=== PATIENT | female | born 1935 | race Caucasian/White ===

== ENCOUNTER 2016-11-14 11:59 | Emergency (ER) | payer MEDICARE, BC ==
[~2016-11-14] VITALS: Ht 157.5 cm; Wt 60.0 kg
[~2016-11-14 11:59] MED LIST: ANAS1 PO; ANTI12.5 PO; CARV20 PO; COLC.6 PO; DIOV40TA PO; FE FCAP PO; FENT75DI TD; LACTTAB7 PO; METH2.5 PO; NITR.4 SL; NUCY150T PO; OXYC20TA PO; PLAV75TA PO; POTA-267 PO; PRED50 PO; PROT40TA PO; SIMV10 PO; TORS20TA PO; ZOFR4TAB3 PO
[2016-11-14 12:04] VITALS: BP 147/80; PULSE 76; RESP 18; TEMP 98.7; O2SAT 100
--- NOTE | 2016-11-14 12:39 | PD ---
HPI Chief Complaint: Pain: Acute or Chronic Time Seen by Provider: 12:05 Travel History International Travel<30 days: No Contact w/Intl Traveler<30days: No Traveled to known affect area: No History of Present Illness HPI 81yo F with PMH of breast CA and chronic pain who follows pain management Dr. Lomeli presents to c/o left arm pain. States left arm pain and edema for weeks and is on fentanyl patch and oxycodone for it. Denies any fall or trauma. Denies any fever, chest pain, sob, n/v, abdominal pain, focal weakness or numbness. PFSH Past Medical History Hx Anticoagulant Therapy: Yes Arthritis: Yes (PAGE KNEES/LEGS) Asthma: No Autoimmune Disease: No Blood Disorders: No Anxiety: No Depression: No Heart Rhythm Problems: No Cancer: Yes (Right breast) Cardiac Catheterization: Yes Cardiovascular Problems: Yes High Cholesterol: Yes Chemotherapy: Yes Chest Pain: Yes Congestive Heart Failure: No COPD: No Cerebrovascular Accident: Yes Coronary Artery Disease: Yes Diabetes: No Diminished Hearing: No Endocrine: No Fibromyalgia: Yes Gastrointestinal Disorders: Yes GERD: Yes Gout: Yes Genitourinary: Yes (Chronic kidney disease, stage 3) Headaches: Yes Hiatal Hernia: Yes Hypertension: Yes Immune Disorder: No Implanted Vascular Access Dvce: Yes ( ) Musculoskeletal: Yes (Back pain) Neurologic: No Psychiatric: No Reproductive: No Respiratory: No Immunizations Current: Yes Migraines: No Pneumonia: Yes Radiation Therapy: No Renal Failure: Yes (50%) Seizures: No Sickle Cell Disease: No Sleep Apnea: No Thyroid Disease: No Ulcer: No Tetanus Vaccination: < 5 Years Influenza Vaccination: Yes PNEUMOCCOCAL Vaccine (Year): 2 ?: Not Menopausal: Yes Past Surgical History AICD: No Arteriovenous Shunt: No Body Medical Devices: Left subclavian port, LLQ TENS unit Cardiac Surgery: Yes (CABG (QUADR BYPASS)) Cholecystectomy: Yes Coronary Artery Bypass Graft: Yes (FIVE VESSEL BYPASS) Coronary Stent: Yes (X2) Ear Surgery: No Endocrine Surgery: No Eye Surgery: No Genitourinary Surgery: No Gynecologic Surgery: Yes (MASTECTOMY (RIGHT)) Insulin Pump: No Joint Replacement: No Mastectomy: Yes (R BREAST) Oral Surgery: Yes (TEETH REMOVED) Pacemaker: No Thoracic Surgery: No Tonsillectomy: Yes Other Surgery: Yes (CABG, R MASTECTOMY, LAMINECTOMY) Social History Alcohol Use: No Tobacco Use: No Substance Use: No Allergies-Medications (Allergen,Severity, Reaction): Coded Allergies: ALBERTO Inhibitors (Verified Allergy, Severe, 11/14/16) Amlodipine (Verified Allergy, Severe, SEVERE, ACUTE LIVER INJURY, 11/14/16) Aspirin (Verified Allergy, Severe, throat swelling, 11/14/16) Cipro (Verified Allergy, Severe, 11/14/16) MRI PRECAUTION (Verified Allergy, Severe, INTERNAL TENS UNIT, 11/14/16) Stadol (Verified Allergy, Severe, "PUT ME IN WITHDRAW", 11/14/16) Sulfa (Verified Allergy, Severe, RASH, 11/14/16) NOT STATED Ultram (Verified Allergy, Severe, N/V, 11/14/16) *MDRO Multi-Drug Resistant Organism (Verified Allergy, Unknown, 11/14/16) 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 Reported Meds & Prescriptions Reported Meds & Active Scripts Active Reported Ondansetron HCl 4 Mg Tab 4 Mg PO Q6HR PRN Potassium Chloride ER (Potassium Chloride) 10 Meq Tab 5 Meq PO BID Plavix (Clopidogrel Bisulfate) 75 Mg Tab 75 Mg PO DAILY Integra (Multi-Vit/Iron-B Comp-Vit C) 62.5-62.5-40-3 mg Cap 1 Cap PO DAILY Terbinafine 250 Mg Tab 250 Mg PO DAILY Oxycodone (Oxycodone HCl) 20 Mg Tab 20 Mg PO Q4-6H PRN NOT TO EXCEED 5 TABLETS/24HRS Anastrozole 1 Mg Tab 1 Mg PO DAILY Fentanyl Patch 72 HR (Fentanyl) 75 Mcg/Hr Patch 150 Mcg T-DERMAL Q72H Remove old patches when new ones placed. Review of Systems Except as stated in HPI: all other systems reviewed are Neg Physical Exam Narrative GENERAL: 81yo F not in distress. SKIN: Warm and dry. HEAD: Atraumatic. Normocephalic. CARDIOVASCULAR: Regular rate and rhythm. No murmur appreciated. RESPIRATORY: No accessory muscle use. Clear to auscultation. Breath sounds equal bilaterally. GASTROINTESTINAL: Abdomen soft, non-tender, nondistended. MUSCULOSKELETAL: LUE: +TTP mid humerus to distal radius, ulna. Edema left wrist and elbow that is not new. No erythema or ecchymoses. sensation intact. Radial pulse 2+. NEUROLOGICAL: Awake and alert. No obvious cranial nerve deficits. Motor grossly within normal limits. Normal speech. PSYCHIATRIC: Appropriate mood and affect; insight and judgment normal. Data Data Last Documented VS Vital Signs Date Time Temp Pulse Resp B/P Pulse Ox O2 Delivery O2 Flow Rate FiO2 11/14/16 14:36 70 18 161/77 94 Room Air 11/14/16 12:04 98.7 Orders Humerus (Min 2vws) (11/14/16 ) Elbow, Limited (Ap&Lat) (11/14/16 ) Us Arm Venous Doppler (11/14/16 ) Hydromorphone Pf Inj (Dilaudid Pf Inj) (11/14/16 14:30) Iv Access Insert/Monitor (11/14/16 14:52) MDM Medical Decision Making Medical Screen Exam Complete: Yes Emergency Medical Condition: Yes Interpretation(s) Last Impressions Upper Extremity Ultrasound 11/14/16 0000 Signed Impressions: Service Date/Time: Monday, November 14, 2016 15:11 - CONCLUSION: Normal examination. No evidence of DVT Rkiki Uribe MD Humerus X-Ray 11/14/16 0000 Signed Impressions: Service Date/Time: Monday, November 14, 2016 12:55 - CONCLUSION: Unremarkable examination of the left humerus. Rikki Uribe MD Elbow X-Ray 11/14/16 0000 Signed Impressions: Service Date/Time: Monday, November 14, 2016 13:04 - CONCLUSION: Negative examination Rikki Uribe MD Differential Diagnosis Chronic pain vs. rheumatoid arthritis vs. pathologic fracture Narrative Course 81yo F with left arm pain. Denies any trauma but will obtain xray to r/o pathologic fracture since pt is tender and has history of cancer. Negative left humerus and elbow xay. Pt is well known to Dr. Lomeli and I discussed case with her. He wanted ultrasound of left arm prior to discharge and stated that pt can receive dilaudid for acute pain in the ED even though she follows with pain management. US left arm showed no DVT. Pt given dilaudid 0.5m IV and pain is improved. Dr. Lomeli is aware that pt will be following up with him as outpatient. Diagnosis Primary Impression: Left arm pain Patient Instructions: General Instructions Departure Forms: Tests/Procedures Additional Instructions: Please follow up with your Dr. Lomeli as outpatient. Return to the ED if symptoms worsen. Med/Other Pt SpecificInfo: No Change to Meds Disposition: 01 DISCHARGE HOME Condition: Stable Radha Mcelroy DO Nov 14, 2016 12:39
[2016-11-14] MEDS ORDERED: OXYC-396 PO (12:42)
[2016-11-14] MEDS ORDERED: ONDA4TAB6 PO (12:42)
[2016-11-14] MEDS ORDERED: POTA10TA2 PO (12:42)
[2016-11-14] MEDS ORDERED: FENT75DI T-DERMAL (12:42)
[2016-11-14] MEDS ORDERED: FE FCAP PO (12:42)
[2016-11-14] MEDS ORDERED: TERB250T4 PO (12:42)
[2016-11-14] MEDS ORDERED: ANAS1TAB PO (12:42)
[2016-11-14] MEDS ORDERED: PLAV75TA29 PO (12:42)
--- NOTE | 2016-11-14 13:39 | RADRPT ---
EXAM DATE/TIME: 11/14/2016 13:04 [facility] COMPARISON: No previous studies available for comparison. INDICATIONS : Left elbow pain, no injury. MEDICAL HISTORY : Arthritis. SURGICAL HISTORY : None. ENCOUNTER: Initial ACUITY: 2 days PAIN SCORE: 10/10 LOCATION: Left elbow FINDINGS: Two view examination of the left elbow demonstrates no soft tissue swelling, joint effusion, fracture or dislocation. Bony mineralization is normal. CONCLUSION: Negative examination Rikki Uribe MD on November 14, 2016 at 13:37 Board Certified Radiologist. This report was verified electronically.
--- NOTE | 2016-11-14 13:40 | RADRPT ---
EXAM DATE/TIME: 11/14/2016 12:55 [facility] COMPARISON: No previous studies available for comparison. INDICATIONS : Left arm pain, no injury. MEDICAL HISTORY : Arthritis. SURGICAL HISTORY : None. ENCOUNTER: Initial ACUITY: 2 days PAIN SCORE: 10/10 LOCATION: Left entire arm FINDINGS: Two view examination of the left humerus demonstrates no evidence of fracture or dislocation. Bony m ineralization is normal. The soft tissue structures are intact. CONCLUSION: Unremarkable examination of the left humerus. Rikki Uribe MD on November 14, 2016 at 13:38 Board Certified Radiologist. This report was verified electronically.
[2016-11-14] MEDS ORDERED: HYDROmorphone HCL PF 1 MG/ML VIAL IV PUSH ONE (14:30)
[2016-11-14 14:36] VITALS: BP 161/77; PULSE 70; RESP 18; O2SAT 94
--- NOTE | 2016-11-14 15:37 | RADRPT ---
EXAM DATE/TIME: 11/14/2016 15:11 [facility] COMPARISON: No previous studies available for comparison. INDICATIONS : Left arm pain and swelling. MEDICAL HISTORY : Carcinoma, breast. Hypertension. SURGICAL HISTORY : CABG Mastectomy. Left port. Coronary stent. ENCOUNTER: Initial ACUITY: 2 day PAIN SCORE: 10/10 LOCATION: Left arm. FINDINGS: There is spontaneous flow documented in the brachial, basilic, cephalic, axillary, and subclavian vei ns. The vessels are compressible and augmentation response is documented. No filling defects are se en. The flow is phasic with respiration. Direction of flow in the jugular vein is caudal. CONCLUSION: Normal examination. No evidence of DVT Rikki Uribe MD on November 14, 2016 at 15:36 Board Certified Radiologist. This report was verified electronically.
== END 2016-11-14 17:05 | disposition home or self-care (01) ==
LOC: NEPC 11:59
DX: M79.602 Pain in left arm (principal); G89.29 Other chronic pain; I25.10 Atherosclerotic heart disease of native coronary artery without angina pectoris; M79.7 Fibromyalgia; I12.9 Hypertensive chronic kidney disease with stage 1 through stage 4 chronic kidney disease, or unspecified chronic kidney disease; N18.3 Chronic kidney disease, stage 3 (moderate); Z79.01 Long term (current) use of anticoagulants; Z85.3 Personal history of malignant neoplasm of breast
CPT/HCPCS: 73060; 73070; 93971; 96374; 99284; J1170

== ENCOUNTER 2016-12-23 17:54 | Inpatient (IN) | payer MEDICARE, BC ==
[~2016-12-23] VITALS: Ht 157.5 cm; Wt 53.9 kg
[~2016-12-23 17:54] MED LIST changes: -ANAS1 PO; +ANAS1TAB PO; -ANTI12.5 PO; -CARV20 PO; -COLC.6 PO; -DIOV40TA PO; +FENT75DI T-DERMAL; -FENT75DI TD; -LACTTAB7 PO; -METH2.5 PO; -NITR.4 SL; -NUCY150T PO; +ONDA4TAB6 PO; +OXYC-396 PO; -OXYC20TA PO; -PLAV75TA PO; +PLAV75TA29 PO; -POTA-267 PO; +POTA10TA2 PO; -PRED50 PO; -PROT40TA PO; -SIMV10 PO; +TERB250T4 PO; -TORS20TA PO; -ZOFR4TAB3 PO
[2016-12-23 17:57] VITALS: BP 139/65; PULSE 80; RESP 17; TEMP 98.2; O2SAT 97
--- NOTE | 2016-12-23 18:32 | PD ---
HPI Chief Complaint: Chest Pain Time Seen by Provider: 18:32 Travel History International Travel<30 days: No Contact w/Intl Traveler<30days: No Traveled to known affect area: No History of Present Illness HPI 81-year-old female with a history of hypertension, hyperlipidemia, CABG 4, CHF , chronic low back pain, rheumatoid arthritis, breast cancer in remission presents to the emergency department for evaluation of pain all over. The patient states that she has pain all over worse in her bilateral knees. States that a few hours ago she was at home and she was having terrible pain in her knees and then began to complain of pain in her chest. The patient is accompanied by her son and daughter who take care of the patient. The patient' s daughter states that she gave the patient one nitroglycerin tablet and her chest pain resolved. The patient has a history of bilateral knee pain which has worsened over the past year, she receives intra-articular injections from Dr. Lin every 6 months. The patient's daughter is concerned that she may have a urinary tract infection because in the past this has exacerbated her joint pain. Denies any fever, chills, nausea, vomiting, shortness of breath, abdominal pain. Patient's daughter states that the patient has been eating and drinking well without difficulty. No other complaints. Dialysis Registered Nurse is Dr. Gutierres. PCP Dr. Hightower. [facility] Past Medical History Hx Anticoagulant Therapy: Yes Arthritis: Yes (PAGE KNEES/LEGS) Asthma: No Autoimmune Disease: No Blood Disorders: No Anxiety: No Depression: No Heart Rhythm Problems: No Cancer: Yes (Right breast) Cardiac Catheterization: Yes Cardiovascular Problems: Yes High Cholesterol: Yes Chemotherapy: Yes Chest Pain: Yes Congestive Heart Failure: No COPD: No Cerebrovascular Accident: Yes Coronary Artery Disease: Yes Diabetes: No Diminished Hearing: No Endocrine: No Fibromyalgia: Yes Gastrointestinal Disorders: Yes GERD: Yes Gout: Yes Genitourinary: Yes (Chronic kidney disease, stage 3) Headaches: Yes Hiatal Hernia: Yes Hypertension: Yes Immune Disorder: No Implanted Vascular Access Dvce: Yes ( ) Musculoskeletal: Yes (Back pain) Neurologic: No Psychiatric: No Reproductive: No Respiratory: No Immunizations Current: Yes Migraines: No Pneumonia: Yes Radiation Therapy: No Renal Failure: Yes (50%) Seizures: No Sickle Cell Disease: No Sleep Apnea: No Thyroid Disease: No Ulcer: No PNEUMOCCOCAL Vaccine (Year): 2 Menopausal: Yes Past Surgical History AICD: No Arteriovenous Shunt: No Body Medical Devices: Left subclavian port, LLQ TENS unit Cardiac Surgery: Yes (CABG (QUADR BYPASS)) Cholecystectomy: Yes Coronary Artery Bypass Graft: Yes (FIVE VESSEL BYPASS) Coronary Stent: Yes (X2) Ear Surgery: No Endocrine Surgery: No Eye Surgery: No Genitourinary Surgery: No Gynecologic Surgery: Yes (MASTECTOMY (RIGHT)) Insulin Pump: No Joint Replacement: No Mastectomy: Yes (R BREAST) Oral Surgery: Yes (TEETH REMOVED) Pacemaker: No Thoracic Surgery: No Tonsillectomy: Yes Other Surgery: Yes (CABG, R MASTECTOMY, LAMINECTOMY) Social History Alcohol Use: No Tobacco Use: No Substance Use: No Allergies-Medications (Allergen,Severity, Reaction): Coded Allergies: ALBERTO Inhibitors (Verified Allergy, Severe, 12/23/16) Amlodipine (Verified Allergy, Severe, SEVERE, ACUTE LIVER INJURY, 12/23/16) Aspirin (Verified Allergy, Severe, throat swelling, 12/23/16) Cipro (Verified Allergy, Severe, 12/23/16) MRI PRECAUTION (Verified Allergy, Severe, INTERNAL TENS UNIT, 12/23/16) Stadol (Verified Allergy, Severe, "PUT ME IN WITHDRAW", 12/23/16) Sulfa (Verified Allergy, Severe, RASH, 12/23/16) NOT STATED Ultram (Verified Allergy, Severe, N/V, 12/23/16) *MDRO Multi-Drug Resistant Organism (Verified Allergy, Unknown, 12/23/16) 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 Reported Meds & Prescriptions Reported Meds & Active Scripts Active Reported Valsartan 40 Mg Tab 40 Mg PO DAILY Ondansetron HCl 4 Mg Tab 4 Mg PO Q6HR PRN Potassium Chloride ER (Potassium Chloride) 10 Meq Tab 5 Meq PO BID Plavix (Clopidogrel Bisulfate) 75 Mg Tab 75 Mg PO DAILY Integra (Multi-Vit/Iron-B Comp-Vit C) 62.5-62.5-40-3 mg Cap 1 Cap PO DAILY Oxycodone (Oxycodone HCl) 20 Mg Tab 20 Mg PO Q4-6H PRN NOT TO EXCEED 5 TABLETS/24HRS Anastrozole 1 Mg Tab 1 Mg PO DAILY Fentanyl Patch 72 HR (Fentanyl) 75 Mcg/Hr Patch 150 Mcg T-DERMAL Q72H Remove old patches when new ones placed. Review of Systems Except as stated in HPI: all other systems reviewed are Neg Physical Exam Narrative GENERAL: Thin elderly female in no acute distress. SKIN: Warm and dry. HEAD: Normocephalic and atraumatic. EYES: Left eye with conjunctival and scleral injection with yellow drainage and crusting. Right eye within normal limits. No hyphema noted. PERRLA. EOMI. ENT: No nasal drainage noted. Oropharynx is clear. NECK: Supple and the trachea is midline. CARDIOVASCULAR: Regular rate and rhythm. RESPIRATORY: Breath sounds are equal bilaterally with no accessory muscle use, wheezing, rhonchi, or crackles. GASTROINTESTINAL: Abdomen is soft, non-tender, and nondistended. MUSCULOSKELETAL: No obvious deformities, swelling, cyanosis, or ecchymosis is present throughout the upper and lower extremities. Patient has full range of motion without any signs of neurovascular compromise. NEUROLOGICAL: Awake, alert, and oriented. Normal speech and gait. Cranial nerves are grossly intact. Data Data Last Documented VS Vital Signs Date Time Temp Pulse Resp B/P Pulse Ox O2 Delivery O2 Flow Rate FiO2 12/23/16 19:31 18 12/23/16 17:57 98.2 80 139/65 97 Orders Complete Blood Count With Diff (12/23/16 18:29) Comprehensive Metabolic Panel (12/23/16 18:29) Prothrombin Time / Inr (Pt) (12/23/16 18:29) Act Partial Throm Time (Ptt) (12/23/16 18:29) Lactic Acid Sepsis Protocol (12/23/16 18:29) Magnesium (Mg) (12/23/16 18:29) Ckmb (Isoenzyme) Profile (12/23/16 18:29) Troponin I (12/23/16 18:29) Urinalysis - C+S If Indicated (12/23/16 18:29) Chest, Single Ap (12/23/16 18:29) Ecg Monitoring (12/23/16 18:29) Iv Access Insert/Monitor (12/23/16 18:29) Oximetry (12/23/16 18:29) Creatine Kinase (Cpk) (12/23/16 18:29) Morphine Inj (Morphine Inj) (12/23/16 19:00) Sodium Chlorid 0.9% 500 Ml Inj (Ns 500 M (12/23/16 19:45) Admit Order (Ed Use Only) (12/23/16 20:24) Labs Laboratory Tests Test 12/23/16 18:40 White Blood Count 7.5 TH/MM3 Red Blood Count 2.99 MIL/MM3 Hemoglobin 8.6 GM/DL Hematocrit 26.8 % Mean Corpuscular Volume 89.5 FL Mean Corpuscular Hemoglobin 28.9 PG Mean Corpuscular Hemoglobin 32.2 % Concent Red Cell Distribution Width 18.6 % Platelet Count 262 TH/MM3 Mean Platelet Volume 7.6 FL Neutrophils (%) (Auto) 84.6 % Lymphocytes (%) (Auto) 8.2 % Monocytes (%) (Auto) 6.7 % Eosinophils (%) (Auto) 0.2 % Basophils (%) (Auto) 0.3 % Neutrophils # (Auto) 6.3 TH/MM3 Lymphocytes # (Auto) 0.6 TH/MM3 Monocytes # (Auto) 0.5 TH/MM3 Eosinophils # (Auto) 0.0 TH/MM3 Basophils # (Auto) 0.0 TH/MM3 CBC Comment DIFF FINAL Differential Comment Prothrombin Time 11.8 SEC Prothromb Time International 1.1 RATIO Ratio Activated Partial 38.4 SEC Thromboplast Time Sodium Level 140 MEQ/L Potassium Level 4.4 MEQ/L Chloride Level 104 MEQ/L Carbon Dioxide Level 25.8 MEQ/L Anion Gap 10 MEQ/L Blood Urea Nitrogen 26 MG/DL Creatinine 1.96 MG/DL Estimat Glomerular Filtration 24 ML/MIN Rate Random Glucose 88 MG/DL Lactic Acid Level 1.0 mmol/L Calcium Level 8.4 MG/DL Magnesium Level 2.4 MG/DL Total Bilirubin 0.4 MG/DL Aspartate Amino Transf 27 U/L (AST/SGOT) Alanine Aminotransferase 9 U/L (ALT/SGPT) Alkaline Phosphatase 214 U/L Total Creatine Kinase 97 U/L Troponin I 0.08 NG/ML Total Protein 6.7 GM/DL Albumin 3.2 GM/DL [facility] Medical Decision Making Medical Screen Exam Complete: Yes Emergency Medical Condition: Yes Differential Diagnosis Rheumatoid arthritis versus chronic pain versus UTI versus ACS Narrative Course 81-year-old female presents to the emergency department for evaluation of chronic joint pain and an episode of chest pain. Patient is afebrile, vital signs are stable. Physical examination reveals a thin elderly cachectic female who appears clinically dry. Labs were drawn and sent. EKG shows sinus rhythm with no acute ST elevations or depressions. Patient is on multiple pain medications including a fentanyl patch and oxycodone every 4 hours. She's requesting something for her pain. Patient is given morphine 4 mg IV. She is allergic to aspirin and therefore is not given any here, she is on Plavix. CBC shows anemia with a hemoglobin of 8.6, hematocrit 26.8. This does appear to be consistent with her previous lab values over the past 2 years. CMP shows elevated creatinine of 1.96, BUN 26, GFR 24. This is elevated from the patient's baseline. Troponin is elevated at 0.08. Lactic acid is 1.0. Coags are unremarkable. Chest x-ray is negative for any acute abnormalities. Labs show that the patient is dehydrated, she is given a fluid bolus of 500 cc IV normal saline. She has an elevated troponin as well. Patient will be admitted to medicine service likely with cardiology consultation. Physician Communication Physician Communication I spoke with Arabella KLINE for [facility] who agrees to admit the patient to Dr. Velasquez's service. Diagnosis Primary Impression: Chest pain Qualified Code: R07.9 - Chest pain, unspecified type Additional Impressions: Elevated troponin Chronic joint pain AYESHA (acute kidney injury) Conjunctivitis, left eye Qualified Code: H10.32 - Acute conjunctivitis of left eye, unspecified acute conjunctivitis type Admitting Information Admitting Physician Requests: Admit Alisia Anthony Dec 23, 2016 18:32
[2016-12-23] MEDS ORDERED: VALS1TAB63 PO (18:42)
[2016-12-23] MEDS ORDERED: MORPHINE SULFATE 4 MG/ML INJ IV PUSH ONE (19:00)
[2016-12-23 19:02] LABS: AUTOMATED NEUTROPHIL # 6.3 TH/MM3 (1.8-7.7); BASOPHIL % 0.3 % (0.0-2.0); EOSINOPHIL % 0.2 % (0.0-4.0); HEMATOCRIT 26.8 % (35.0-46.0); HEMO FLAGS DIFF FINAL; LYMPH % 8.2 % (9.0-44.0); LYMPHOCYTE # 0.6 TH/MM3 (1.0-4.8); MEAN CELL VOLUME 89.5 FL (80.0-100.0); MEAN CORPUSCULAR HEMOGLOBIN 28.9 PG (27.0-34.0); MEAN CORPUSCULAR HGB CONC 32.2 % (32.0-36.0); MONO % 6.7 % (0.0-8.0); NEUT % 84.6 % (16.0-70.0); PLATELET COUNT 262 TH/MM3 (150-450); RED BLOOD COUNT 2.99 MIL/MM3 (4.00-5.30); RED CELL DISTRIBUTION WIDTH 18.6 % (11.6-17.2); WHITE BLOOD COUNT 7.5 TH/MM3 (4.0-11.0)
--- NOTE | 2016-12-23 19:07 | RADRPT ---
EXAM DATE/TIME: 12/23/2016 18:51 [facility] COMPARISON: CHEST SINGLE AP, April 04, 2015, 3:37. INDICATIONS : Chest Pain, Short of Breath. MEDICAL HISTORY : Chronic obstructive pulmonary disease. Renal insufficiency. SURGICAL HISTORY : Nephrectomy, right. Cholecystectomy. Heart Surgery. Lumbar Spine Surgery. Port Placement. ENCOUNTER: Initial ACUITY: 1 day PAIN SCORE: 3/10 LOCATION: Bilateral chest FINDINGS: Vital hernia, cardiomegaly and clear lungs. Median sternotomy wires and CABG markers are noted. Spina l stimulator lead overlies the lower thoracic spine. Left sided port catheter tip overlies the SVC. A ortic calcification is noted. CONCLUSION: No acute disease. Lanre Rao MD on December 23, 2016 at 19:05 Board Certified Radiologist. This report was verified electronically.
[2016-12-23 19:15] LABS: APTT (PATIENT) 38.4 SEC (24.3-30.1); INTERNATIONAL NORMALIZED RATIO 1.1 RATIO; PROTHROMBIN TIME - PATIENT 11.8 SEC (9.8-11.6)
[2016-12-23 19:28] LABS: ANION GAP 10 MEQ/L (5-15); AST (GOT) 27 U/L (15-37); BICARBONATE 25.8 MEQ/L (21.0-32.0); BLOOD UREA NITROGEN 26 MG/DL (7-18); CHLORIDE 104 MEQ/L (98-107); GLOMERULAR FILTRATION RATE 24 ML/MIN (>89); MAGNESIUM 2.4 MG/DL (1.5-2.5); POTASSIUM 4.4 MEQ/L (3.5-5.1); SODIUM (NA) 140 MEQ/L (136-145)
[2016-12-23 19:32] LABS: ALKALINE PHOSPHATASE 214 U/L (45-117); ALT (GPT) 9 U/L (10-53); TOTAL BILIRUBIN ADULT 0.4 MG/DL (0.2-1.0)
[2016-12-23 19:34] LABS: CREATINE KINASE 97 U/L (26-192)
[2016-12-23] MEDS ORDERED: SODIUM CHLORID 0.9% 500 ML INJ 500 ML IV ONE (19:45)
[2016-12-23] MEDS ORDERED: ACETAMINOPHEN 325 MG TAB PO PRN (20:30)
[2016-12-23] MEDS ORDERED: NALOXONE HCL 0.4 MG/ML AMP IV PRN (20:30)
[2016-12-23] MEDS ORDERED: SODIUM CHLORIDE 0.9% FLUSH 5 ML FLUSH FLUSH PRN (20:30)
[2016-12-23 20:39] VITALS: BP 144/67; PULSE 71; RESP 18; O2SAT 98
[2016-12-23] MEDS ORDERED: HYDROmorphone HCL PF 1 MG/ML VIAL IV PUSH ONE (20:45)
[2016-12-23 20:56] LABS: BLOOD, URINE NEG (NEG); GLUCOSE,URINE NEG (NEG); KETONE, URINE TRACE mg/dL (NEG); NITRITE,URINE NEG (NEG); PH, URINE 5.5 (5.0-8.5); URINE COLOR YELLOW (YELLW/STRAW)
[2016-12-23 21:01] LABS: COMMENT (UR) CATH-CULTURE IND; CULTURE IF INDICATED CATH CULTURE IND
[2016-12-23 21:02] LABS: BACTERIA, URINE FEW /hpf
[2016-12-23] MEDS: ERYTHROMYCIN 0.5% OPTH OINT 3.5 GM TUBO LEFT EYE SCH (22:10)
[2016-12-23] MEDS: SODIUM CHLORIDE 0.9% FLUSH 5 ML FLUSH FLUSH SCH (22:11)
[2016-12-24] MEDS: NITROGLYCERIN 2% OINT 1 GM PACKET TOPICAL SCH ×4 (00:11→17:20)
[2016-12-24] MEDS: ERYTHROMYCIN 0.5% OPTH OINT 3.5 GM TUBO LEFT EYE SCH ×4 (00:12→17:19)
[2016-12-24] MEDS ORDERED: HYDROmorphone HCL PF 1 MG/ML VIAL IV PRN (01:30)
[2016-12-24] MEDS: HYDROmorphone HCL PF 1 MG/ML VIAL IV PRN ×4 (02:15→13:43)
[2016-12-24 03:35] VITALS: PULSE 53
[2016-12-24 04:00] VITALS: BP 133/63; PULSE 61; RESP 22; TEMP 98.3; O2SAT 100
[2016-12-24] MEDS: ONDANSETRON HCL 4 MG/2 ML VIAL IVP PRN ×2 (05:58→17:20)
[2016-12-24 08:00] VITALS: BP 180/79; PULSE 70; RESP 18; TEMP 98.1; O2SAT 97
[2016-12-24] MEDS: ANASTROZOLE 1 MG TAB PO SCH ×2 (08:41→09:03)
[2016-12-24] MEDS: CLOPIDOGREL 75 MG TAB PO SCH ×2 (08:41→09:03)
[2016-12-24] MEDS: SODIUM CHLORIDE 0.9% FLUSH 5 ML FLUSH FLUSH SCH ×2 (08:42→20:45)
[2016-12-24 09:01] LABS: AUTOMATED NEUTROPHIL # 4.6 TH/MM3 (1.8-7.7); BASOPHIL % 0.5 % (0.0-2.0); EOSINOPHIL % 0.6 % (0.0-4.0); HEMATOCRIT 26.6 % (35.0-46.0); HEMO FLAGS DIFF FINAL; LYMPH % 13.6 % (9.0-44.0); LYMPHOCYTE # 0.8 TH/MM3 (1.0-4.8); MEAN CELL VOLUME 90.3 FL (80.0-100.0); MEAN CORPUSCULAR HEMOGLOBIN 29.4 PG (27.0-34.0); MEAN CORPUSCULAR HGB CONC 32.5 % (32.0-36.0); MONO % 7.4 % (0.0-8.0); NEUT % 77.9 % (16.0-70.0); PLATELET COUNT 240 TH/MM3 (150-450); RED BLOOD COUNT 2.95 MIL/MM3 (4.00-5.30); RED CELL DISTRIBUTION WIDTH 19.4 % (11.6-17.2); WHITE BLOOD COUNT 5.9 TH/MM3 (4.0-11.0)
[2016-12-24 09:30] LABS: BICARBONATE 22.2 MEQ/L (21.0-32.0); HDL CHOLESTEROL 46.1 MG/DL (40.0-60.0); POTASSIUM 4.4 MEQ/L (3.5-5.1)
[2016-12-24 12:00] VITALS: BP 160/72; PULSE 64; RESP 18; TEMP 98.2; O2SAT 93
[2016-12-24] MEDS ORDERED: LIDOCAINE HCL 5% OINT 37 GM TUBE TOPICAL PRN (12:30)
--- NOTE | 2016-12-24 12:30 | MB ---
cc: SHAILESH WEINSTEIN M.D., MARK B. M.D. ANO, FERMIN A. M.D. DATE OF CONSULTATION: 12/24/2016 REASON FOR CONSULTATION: Atypical chest discomfort and nonspecific troponin elevation. HISTORY OF PRESENT ILLNESS: Ms. Aguilar is a pleasant 81 year-old lady with history of hypertension, rheumatoid arthritis, fibromyalgia and generalized pains. She was complaining of her usual generalized pain and neck pains at home, then had chest discomfort complaints as well, and her family decided to bring her over for further management. Currently she is chest pain free. Denies palpitations, dizziness or syncope, denies orthopnea, PND or leg swelling. Denies claudication. ALLERGIES Documented in the chart. MDRO ALBERTO INHIBITOR AMLODIPINE ASPIRIN CIPRO STADOL SULFA ULTRAM Not sure if all these are allergies versus side effects. PAST MEDICAL HISTORY/PAST SURGICAL HISTORY: As mentioned above. 1. History of coronary artery disease, status post coronary artery bypass graft surgery in the past. 2. GE reflux disease. 3. Chronic kidney disease. 4. Hyperlipidemia. 5. Chronic back pain. 6. Anemia. 7. Breast cancer. 8. Gout. 9. Degenerative joint disease/arthritis. 10. Status post mastectomy of the right breast. 11. CABG in the past. REVIEW OF SYSTEMS 12-point system review is unremarkable apart from what is mentioned above including the generalized pain. FAMILY HISTORY: The family history is unremarkable. PHYSICAL EXAMINATION: The patient is an 81-year-old lady lying in bed. No apparent distress, alert and oriented x3, answers questions appropriately. Vitals: Shows a blood pressure earlier today 180/78 mmHg, prior to that it has been running between 133 systolic to 161. Diastolic occurring between 63 to 80 mmHg. Pulse of 70 beats per minute, irregular. Respiratory rate 40 per minute, afebrile. HEENT: Head is normocephalic. Pupils equal and reactive. Throat is within normal limits. Neck: Supple. No carotid bruit. No thyromegaly. No jugular venous distension noted. Lungs: Somewhat diminished air entry but clear to auscultation and percussion. Cardiovascular: S1, S2 are normal with an S4 gallop and 2/6 denney systolic murmur at the apex with some radiation to the axilla, likely secondary to mitral regurgitation. Abdomen: Exam is lax, nontender. Normoactive bowel sounds. No organomegaly or masses felt. Extremities: No clubbing, cyanosis or edema. Pulses 2+ bilaterally all the way down to the femorals. Dorsalis pedis is barely felt. Neurologic: Grossly intact with no focal deficits. Rectal: Exam deferred. EKG shows sinus rhythm at a rate of 73 beats per minute with no acute ischemic changes. LABORATORY DATA: Showed BUN of 26, creatinine 1.96, it is down to 1.83 today. Sodium 140, potassium 4.4 and a magnesium of 2.4. She had three Troponin-I, one was 0.08, followed by 0.07, followed by 0.05. Her lipids showed an LDL of 93, HDL of 46 and triglycerides of 162. White count of 5.9, hemoglobin of 8.7 with a platelet count of 240,000. X-RAYS: Chest x-ray showed no acute findings "reported as." ASSESSMENT AND RECOMMENDATION: 1. History of coronary artery disease status post CABG and PCI in the past, according to some of the notes. The exact details are not available and now with atypical chest discomfort, appears to be musculoskeletal, and nonspecific troponin elevation which is likely secondary to renal insufficiency (contributing). At this point she is being treated with no EKG changes and will continue on her home meds. Dr. Singletary will resume her cardiac care tomorrow morning and will decide whether further testing is needed (it is worth noting that we do not have any of her recent cardiac workup at this point). 2. Hypertension. Resume home meds and follow up, and assess the need for further adjustments. 3. Hyperlipidemia. Relatively controlled. 4. Need to resume her valsartan an continue on Plavix. Further management per the medical team. Thank you for the consultation. Dr. Singletary will be resuming her cardiac care from tomorrow and also to decide the need for any further investigations. ADDENDUM: After reviewing her labs with the elevated creatinine, it was found that this is a significant elevation compared to her renal function from August 2016, four months ago, and Valsartan would be held, she will be started on Amlodipine for blood pressure control and Dr. Singletary will decide further management tomorrow. MD MONTY Monterroso/FADI /11:38 AM /8:40 AM
--- NOTE | 2016-12-24 13:03 | MH ---
DATE OF ADMISSION: 12/23/2016 ADMITTING PHYSICIAN: JENNIFER FAUSTIN MD CHIEF COMPLAINT: Chest pain. HISTORY OF PRESENT ILLNESS: The patient is an 81-year-old female with a history of hypertension, hyperlipidemia, CABG x4, congestive heart failure, chronic low back pain, chronic arthralgias, rheumatoid arthritis, breast cancer in remission to presented to the emergency room for evaluation of pain all over. Per the patient, she has pain all over, worse in her bilateral knees. She also states that a few hours ago prior to presentation to the emergency room she was at home and was having terrible pain in her knees and then began to complain of pain in her chest. The patient was accompanied by her son and daughter who take care of the patient. The patient's daughter stated that she gave the patient one nitroglycerin tablet and her chest pain resolved. The patient receives intraarticular injections from Dr. Griffin every six months. The patient's daughter is also concerned that she might be having a urinary tract infection because in the past that used to exacerbate her joint pain. She denies any fever, chills, nausea or vomiting, shortness of breath or abdominal pain. The patient's daughter stated that the patient has been eating and drinking well without any difficulty. The patient's functional tester typewriters is Dr. Gordillo. PAST MEDICAL HISTORY: 1. Rheumatoid arthritis. 2. Hypertension. 3. Hyperlipidemia. 4. Coronary artery disease. 5. Chronic low back pain. 6. Bilateral knee pain. 7. History of breast cancer in remission. 8. Chronic kidney disease stage III. PAST SURGICAL HISTORY: 1. CABG x4. 2. History of cardiac stents x2. 3. History of right mastectomy. 4. History of teeth removed. 5. History of spinal surgery, laminectomy. SOCIAL HISTORY: Denies any alcohol, tobacco or substance use. Lives with her daughter who takes care of her. FAMILY HISTORY: Family history significant for coronary artery disease and hypertension and hyperlipidemia. ALLERGIES: 1. ALBERTO INHIBITORS. 2. AMLODIPINE. 3. ASPIRIN. 4. CIPRO. 5. MRI PRECAUTIONS. 6. STADOL. 7. SULFA. 8. ULTRAM. CURRENT MEDICATIONS: 1. Valsartan. 2. Ondansetron. 3. Potassium chloride. 4. Plavix. 5. Integra. 6. Oxycodone. 7. Anastrazole. 8. Fentanyl patch. REVIEW OF SYSTEMS: GENERAL: Complains of generalized body aches and pain. HEAD, EYES, EARS, NOSE, THROAT: Denies any headache, ear, nose or throat pain. Denies any blurring of vision. CARDIOVASCULAR: Did complain of chest pain which is atypical. RESPIRATORY: Denies any shortness of breath or wheezing. GASTROINTESTINAL: Denies any abdominal pain, nausea or vomiting or diarrhea. MUSCULOSKELETAL: Generalized arthralgias and bilateral knee pain. NEUROLOGIC: No focal deficit. PSYCHIATRIC: No depression or anxiety. PHYSICAL EXAMINATION: VITAL SIGNS: At the time of examination, 133/63, pulse oximetry is 100% on room air, pulse is 61, respiratory rate is 22. GENERAL: A frail-looking elderly female lying in bed in no acute distress complaining of knee pain. Wants something to rub on it. SKIN: Warm and dry HEAD: Normocephalic and atraumatic. EYES: Left eye with conjunctival injection with yellow drainage and crusting. Right eye within normal limits. No hyphema noted. Pupils equal, round and reactive to light and accommodation. Extraocular muscles intact. ENT: No nasal drainage noted. Oropharynx is clear. NECK: The neck is supple. Trachea is midline. CARDIOVASCULAR: Regular rate and rhythm. No murmur. No gallop. RESPIRATORY: Breath sounds are equal bilaterally. No accessory muscle use, wheezing, rhonchi or crackles. GASTROINTESTINAL: The abdomen is soft, nontender and nondistended. Bowel sounds heard in all four quadrants. No organomegaly. MUSCULOSKELETAL: No obvious deformities, swelling, cyanosis or congestion. The patient has full range of motion without any signs of neurovascular compromise. NEUROLOGIC: Awake, alert, and oriented. Normal speech and gait. Cranial nerves are grossly intact. PSYCHIATRIC: Appropriate mood and affect. LABORATORY STUDIES: WBCs 7.5, hemoglobin 8.6, hematocrit 26.8, platelet count 262,000. Potassium 4.4, BUN 26, creatinine 1.96, lactic acid is 1.0, magnesium 2.4. The first set of troponin is 0.08, the second set is 0.07 and the third set is 0.05. Triglycerides 115, cholesterol 162, LDL 93, HDL 46.1. Urinalysis shows large leukocyte esterase, a few bacteria, 10 WBCs and culture is indicated. IMAGING STUDIES: Chest x-ray shows no acute disease. DIAGNOSTIC IMPRESSION: 1. Chest pain. 2. Elevated troponin. 3. Rheumatoid arthritis. 4. Chronic joint pain. 5. Acute kidney injury. 6. Left eye conjunctivitis. 7. Hypertension. 8. Hyperlipidemia. 9. Coronary artery disease. PLAN: 1. Will admit the patient to the medical unit. 2. Start the patient on IV fluids. 3. Will request cardiology consult. 4. Will check three sets of troponin. 5. Will also check the lipid profile. 6. Will do continuous telemetry monitoring. 7. Will do pain management with Dilaudid. 8. Will continue home medications as appropriate. 9. THE PATIENT IS ALLERGIC TO ASPIRIN so therefore she is on Plavix and will continue Plavix. 10. Will prescribe lidocaine gel for her knee pain. 11. Will do nitroglycerin PRN. 12. Will prescribe erythromycin ophthalmic ointment for her left eye conjunctivitis. 13. Will monitor the patient closely during the hospital stay. 14. DVT prophylaxis with SCDs. 15. GI prophylaxis with proton pump inhibitor. Further management depends upon the hospital course. The patient has presented with chest pain and need to rule out acute coronary syndrome. Will need cardiology input. Will need an inpatient stay of minimum three midnights. Jennifer Faustin MD [facility]
--- NOTE | 2016-12-24 14:32 | EKG ---
Date Performed: 12/23/2016 Time Performed: 18:17:56 PTAGE: 81 years EKG: Sinus rhythm NORMAL ECG Compared to prior tracing no significant change PREVIOUS TRACING 05/06/2016 @13.00.53 DOCTOR: Virgil Silva Interpretating Date/Time 12/24/2016 14:31:03
[2016-12-24 16:00] VITALS: BP 159/71; PULSE 60; RESP 20; TEMP 98.2; O2SAT 98
[2016-12-24] MEDS ORDERED: amLODIPine BESYLATE 5 MG TAB PO SCH (16:00)
[2016-12-24] MEDS ORDERED: TAPENTADOL 150 MG PO SCH (17:00)
[2016-12-24] MEDS ORDERED: VALSARTAN 40 MG TAB PO ONE (19:00)
[2016-12-24 20:00] VITALS: PULSE 72; RESP 18; TEMP 98.7; O2SAT 98
[2016-12-24] MEDS: CARVEDILOL 6.25 MG TAB PO SCH (20:44)
[2016-12-24] MEDS: FAMOTIDINE 20 MG TAB PO SCH (20:44)
[2016-12-24] MEDS: TAPENTADOL 150 MG PO SCH (20:45)
[2016-12-25] MEDS: NITROGLYCERIN 2% OINT 1 GM PACKET TOPICAL SCH ×4 (00:04→17:05)
[2016-12-25] MEDS: ERYTHROMYCIN 0.5% OPTH OINT 3.5 GM TUBO LEFT EYE SCH ×4 (00:04→17:05)
[2016-12-25 00:43] VITALS: BP 156/74; PULSE 70; RESP 16; TEMP 98.6; O2SAT 96
[2016-12-25] MEDS: ACETAMINOPHEN 325 MG TAB PO PRN ×2 (02:15→07:53)
[2016-12-25 03:39] VITALS: PULSE 76
[2016-12-25 05:12] VITALS: BP 152/71; PULSE 66; RESP 18; TEMP 97.9; O2SAT 98
[2016-12-25] MEDS: TAPENTADOL 150 MG PO SCH ×2 (05:12→14:42)
[2016-12-25 06:14] LABS: BICARBONATE 19.9 MEQ/L (21.0-32.0); POTASSIUM 4.5 MEQ/L (3.5-5.1)
[2016-12-25] MEDS: FAMOTIDINE 20 MG TAB PO SCH (07:51)
[2016-12-25] MEDS: CARVEDILOL 6.25 MG TAB PO SCH (07:51)
[2016-12-25] MEDS: SODIUM CHLORIDE 0.9% FLUSH 5 ML FLUSH FLUSH SCH (07:52)
[2016-12-25 08:00] VITALS: BP 151/102; PULSE 72; PULSE 75; RESP 18; TEMP 97.5; O2SAT 100
--- NOTE | 2016-12-25 08:45 | PD.CARD.PN ---
Subjective Subjective Remarks No CP or SOB. C/O LE pains at this time. Objective Medications Current Medications Medications (Trade) Dose Ordered Sig/Loco Route PRN Reason Start Time Stop Time Status Last Admin Dose Admin Erythromycin (Ilotycin 0.5% Opth Oint) 1 applic Q6HR LEFT EYE 12/23/16 20:30 12/25/16 05:11 IV Flush (NS Flush) 2 ml UNSCH PRN FLUSH FLUSH AFTER USING IV ACCESS 12/23/16 20:30 IV Flush (NS Flush) 2 ml BID FLUSH 12/23/16 21:00 12/25/16 07:52 Ondansetron HCl (Zofran Inj) 4 mg Q6H PRN IVP NAUSEA OR VOMITING 12/23/16 20:30 12/24/16 17:20 Naloxone HCl (Narcan Inj) 0.4 mg UNSCH PRN IV SEE LABEL COMMENTS 12/23/16 20:30 Nitroglycerin (Nitroglycerin 2% Oint) 0.5 inch Q6HR TOPICAL 12/24/16 00:00 12/25/16 05:11 Anastrozole (Arimidex) 1 mg DAILY PO 12/24/16 09:00 12/24/16 09:03 Clopidogrel Bisulfate (Plavix) 75 mg DAILY PO 12/24/16 09:00 12/24/16 09:03 Lidocaine HCl (Xylocaine 5% Oint) 1 applic Q8H PRN TOPICAL LEG PAIN 12/24/16 12:30 12/25/16 05:11 Famotidine (Pepcid) 20 mg BID PO 12/24/16 21:00 12/25/16 07:51 Patient Own Medication PT OWN MED: NUCYNTA... Q8HR PO 12/24/16 22:00 12/25/16 05:12 Carvedilol (Coreg) 6.25 mg Q12HR PO 12/24/16 21:00 12/25/16 07:51 Acetaminophen (Tylenol) 650 mg Q4H PRN PO TEMP > 100.4 AND PAIN 12/25/16 00:45 12/25/16 07:53 Vital Signs / I&O Vital Signs Date Time Temp Pulse Resp B/P Pulse Ox O2 Delivery O2 Flow Rate FiO2 12/25/16 05:12 97.9 66 18 152/71 98 12/25/16 03:39 76 12/25/16 00:43 98.6 70 16 156/74 96 12/24/16 20:45 Room Air 12/24/16 20:00 98.7 72 18 98 12/24/16 16:00 98.2 60 20 159/71 98 12/24/16 12:00 98.2 64 18 160/72 93 12/24/16 12:00 16 I/O 12/24/16 12/24/16 12/24/16 12/25/16 12/25/16 12/25/16 07:00 15:00 23:00 07:00 15:00 23:00 Intake Total 150 ml Output Total 475 ml 350 ml Balance -325 ml -350 ml Intake Oral 150 ml Output Urine Total 475 ml 350 ml # Voids 1 4 # Bowel Movements 0 0 Physical Exam VSS, afebrile No JVD Lungs: CTA Heart: S1/S2 2/6 sytolic murmur at apex. Ext: No C/C/E Laboratory Laboratory Tests Test 12/24/16 12/25/16 08:33 05:20 White Blood Count 5.9 TH/MM3 Red Blood Count 2.95 MIL/MM3 Hemoglobin 8.7 GM/DL Hematocrit 26.6 % Mean Corpuscular Volume 90.3 FL Mean Corpuscular Hemoglobin 29.4 PG Mean Corpuscular Hemoglobin 32.5 % Concent Red Cell Distribution Width 19.4 % Platelet Count 240 TH/MM3 Mean Platelet Volume 7.6 FL Neutrophils (%) (Auto) 77.9 % Lymphocytes (%) (Auto) 13.6 % Monocytes (%) (Auto) 7.4 % Eosinophils (%) (Auto) 0.6 % Basophils (%) (Auto) 0.5 % Neutrophils # (Auto) 4.6 TH/MM3 Lymphocytes # (Auto) 0.8 TH/MM3 Monocytes # (Auto) 0.4 TH/MM3 Eosinophils # (Auto) 0.0 TH/MM3 Basophils # (Auto) 0.0 TH/MM3 CBC Comment DIFF FINAL Differential Comment Sodium Level 140 MEQ/L 141 MEQ/L Potassium Level 4.4 MEQ/L 4.5 MEQ/L Chloride Level 106 MEQ/L 104 MEQ/L Carbon Dioxide Level 22.2 MEQ/L 19.9 MEQ/L Anion Gap 12 MEQ/L 17 MEQ/L Blood Urea Nitrogen 25 MG/DL 26 MG/DL Creatinine 1.83 MG/DL 1.65 MG/DL Estimat Glomerular Filtration 26 ML/MIN 30 ML/MIN Rate Random Glucose 60 MG/DL 54 MG/DL Calcium Level 8.2 MG/DL 8.2 MG/DL Total Creatine Kinase 119 U/L Troponin I 0.05 NG/ML Triglycerides Level 115 MG/DL Cholesterol Level 162 MG/DL LDL Cholesterol 93 MG/DL HDL Cholesterol 46.1 MG/DL Cholesterol/HDL Ratio 3.51 RATIO Imaging Last 48 hours Impressions Chest X-Ray 12/23/16 5369 Signed Impressions: Service Date/Time: Friday, December 23, 2016 18:51 - CONCLUSION: No acute disease. Lanre Rao MD Assessment and Plan Problem List: (1) ASHD (arteriosclerotic heart disease) (2) Chest pain, atypical Assessment and Plan: Suspect musculoskeletal etiology. (3) Back pain (4) S/P CABG (coronary artery bypass graft) (5) Lower extremity pain (6) CKD (chronic kidney disease) (7) Elevated troponin Assessment and Plan: Probably insignificant. Assessment and Plan No further inpatient cardiac workup needed. Resume all home cardiovascular meds. Continue current management. Will follow PRN and see back as outpatient. Raymundo Singletary MD Dec 25, 2016 08:45
[2016-12-25 12:00] VITALS: BP 150/67; PULSE 69; RESP 16; TEMP 98.1; O2SAT 99
[2016-12-25 16:00] VITALS: BP 126/60; PULSE 64; RESP 16; TEMP 97.7; O2SAT 92
[2016-12-25] MEDS ORDERED: REMOVE OLD PATCH TD SCH (16:00)
[2016-12-25] MEDS ORDERED: fentaNYL 75 MCG/HR PATCH TD SCH (16:00)
[2016-12-25] MEDS ORDERED: CARV6.25 PO (17:11)
--- NOTE | 2016-12-25 17:12 | HHI.DCPOC ---
Discharge Care Plan Diagnosis: (1) Chest pain (2) Chronic joint pain Your Health Problems Are: Chest Pain Goals to Promote Your Health * To prevent worsening of your condition and complications * To maintain your health at the optimal level Directions to Meet Your Goals Take your medications as prescribed Follow your dietary instruction Follow activity as directed Keep your appointments as scheduled Take your immunizations and boosters as scheduled If your symptoms worsen call your PCP, if no PCP go to Urgent Care Center or Emergency Room Smoking is Dangerous to Your Health. Avoid second hand smoke Call the 24-hour hour crisis hotline for domestic abuse at Arabella Green [facility] Dec 25, 2016 17:12
[2016-12-25] MEDS ORDERED: ERYTOIN10 LEFT EYE (17:22)
--- NOTE | 2016-12-25 17:22 | HHI.PR ---
Subjective Subjective Remarks chronic back pain very anxious, wants Fentanyl patch no cp no sob wants to go home no other concerns Review of Systems Constitutional Constitutional Remarks 12 point ROS completed, negative except as noted above Vitals/Results Intake & Output 12/24/16 12/24/16 12/25/16 15:00 23:00 07:00 Intake Total 150 ml Output Total 475 ml 350 ml Balance -325 ml -350 ml Intake Oral 150 ml Output Urine Total 475 ml 350 ml # Voids 4 # Bowel Movements 0 0 Vital Signs Vital Signs Date Time Temp Pulse Resp B/P Pulse Ox O2 Delivery O2 Flow Rate FiO2 12/25/16 16:00 97.7 64 16 126/60 92 12/25/16 12:00 98.1 69 16 150/67 99 12/25/16 08:00 97.5 72 18 151/102 100 12/25/16 08:00 Room Air 12/25/16 08:00 75 12/25/16 05:12 97.9 66 18 152/71 98 12/25/16 03:39 76 12/25/16 00:43 98.6 70 16 156/74 96 12/24/16 20:45 Room Air 12/24/16 20:00 98.7 72 18 98 CBC/BMP: 12/24/16 0833 12/25/16 0520 Lab Results Laboratory Tests Test 12/25/16 05:20 Sodium Level 141 MEQ/L Potassium Level 4.5 MEQ/L Chloride Level 104 MEQ/L Carbon Dioxide Level 19.9 MEQ/L Anion Gap 17 MEQ/L Blood Urea Nitrogen 26 MG/DL Creatinine 1.65 MG/DL Estimat Glomerular Filtration 30 ML/MIN Rate Random Glucose 54 MG/DL Calcium Level 8.2 MG/DL Physical Exam General General Appearance: Well Developed, No Acute Distress, Comfortable, Pale Eyes Eye Exam: Pupils Equal, Pupils Reactive Ears & Nose Ears & Nose Exam: Nasal Mucosa Francisco Throat Throat Exam: Oral Mucosa Francisco & Moist Neck Neck Exam: Neck Supple, Trachea Midline Pulmonary Resp Exam: Decreased Bases Cardiology CV Exam: Regular, Good Perfusion Gastrointestinal/Abdomen GI Exam: Soft, Non-Tender, Bowel Sounds Present, Non-Distended Musculoskeletal MS Exam: Joints Intact MS Remarks joint deformities Integumentary Skin Exam: Warm, Dry Extremeties Extremities Exam: No Edema, Pedal Pulses Palpable Neurologic Neuro Exam: Alert, Awake, Oriented, Speech Clear, Moving All Extremities, No Focal Deficits Psychiatric Psych Exam: Appropriate Responses VTE Prophylaxis VTE Prophylaxis Device: SCDs PUD Prophylasis PUD Remarks PEPCID Assessment/Plan Assessment/Plan 1. Chest pain. 2. Elevated troponin. 3. Rheumatoid arthritis. 4. Chronic joint pain. 5. Acute kidney injury on CKD 6. Left eye conjunctivitis. 7. Hypertension. 8. Hyperlipidemia. 9. Coronary artery disease. 10. Chronic anemia PLAN: cardiac enzymes done, indeterminate appreciate card input, pain likely musculoskeletal, no further work up Continue with Plavix Started on Coreg Continue with home meds Resume Roxicodone Resume fentanyl Continue with erythromycin ophthalmic ointment for her left eye conjunctivitis. Renal function stable HH stable f/u for anemia as OP DVT prophylaxis with SCDs. GI prophylaxis with proton pump inhibitor. Discharge today doesn't want HHC, has DME at home and lives with family F/U cardiology F/U PCP D/W RN D/W Dr. Souza D/W pt. This patient was seen by myself and Dr. Souza, this note is written his behalf Arabella Green Dec 25, 2016 17:22
[2016-12-25] MEDS ORDERED: Infusaport/Implanted VAD PRN NS Lock Flush IVF (19:15)
[2016-12-25] MEDS ORDERED: FAMOTIDINE 20 MG TAB PO SCH (21:00)
== END 2016-12-25 19:45 | disposition home or self-care (01) | DRG 556 ==
LOC: NEPC 17:54 → NEDA 20:25 → N04A 23:15
PROVIDERS: ADMIT Family Medicine; ATTEND Family Medicine
DX: M79.1 Myalgia (principal); N17.9 Acute kidney failure, unspecified; I25.10 Atherosclerotic heart disease of native coronary artery without angina pectoris; D64.9 Anemia, unspecified; M06.9 Rheumatoid arthritis, unspecified; R07.89 Other chest pain; R79.89 Other specified abnormal findings of blood chemistry; N18.3 Chronic kidney disease, stage 3 (moderate); Z86.73 Personal history of transient ischemic attack (TIA), and cerebral infarction without residual deficits; M25.561 Pain in right knee; M10.9 Gout, unspecified; E78.00 Pure hypercholesterolemia, unspecified; E78.5 Hyperlipidemia, unspecified; Z95.1 Presence of aortocoronary bypass graft; K21.9 Gastro-esophageal reflux disease without esophagitis; G89.29 Other chronic pain; M54.5 Low back pain; Z85.3 Personal history of malignant neoplasm of breast; M19.90 Unspecified osteoarthritis, unspecified site
CPT/HCPCS: 71010; 80048; 80053; 80061; 81001; 82550; 83605; 83735; 84484; 85025; 85610; 85730; 87086; 93005; 96374; J1170; J2270; J2405; J7040

== ENCOUNTER 2017-02-01 15:59 | Inpatient (IN) | payer MEDICARE, BC ==
[~2017-02-01] VITALS: Ht 157.5 cm; Wt 56.0 kg
[~2017-02-01 15:59] MED LIST changes: +CARV6.25 PO; +ERYTOIN10 LEFT EYE; -TERB250T4 PO; +VALS1TAB63 PO
[2017-02-01 16:01] VITALS: BP 124/58; PULSE 66; RESP 24; TEMP 97.6; O2SAT 100
--- NOTE | 2017-02-01 16:49 | PD ---
Physical Exam Time Seen by Provider: 16:47 Narrative 81yo F sent by Dr. Hightower for a blood transfusion. Hgb 8.4 yesterday. Vomiting earlier today. Denies Hematuria. Reports diarrhea. Unknown if blood in stool. Weak and tired. No Fever. Denies syncope. VSS. Patient seen in triage. Awaiting bed placement. Data Data Last Documented VS Vital Signs Date Time Temp Pulse Resp B/P Pulse Ox O2 Delivery O2 Flow Rate FiO2 02/01/17 16:01 97.6 66 24 124/58 100 Room Air [facility] Supervised Visit with CHEO: Alisai Lubin Feb 01, 2017 16:49
[2017-02-01] MEDS ORDERED: SODIUM CHLOR 0.9% 1000 ML INJ 1,000 ML IV SCH (19:48)
[2017-02-01] MEDS ORDERED: NUCY100T4 PO (19:50)
[2017-02-01] MEDS ORDERED: ALLO100T PO (19:50)
[2017-02-01] MEDS ORDERED: PANT40TA3 PO (19:50)
[2017-02-01] MEDS ORDERED: LACTTAB13 PO (19:50)
[2017-02-01] MEDS ORDERED: MECL-62 PO (19:50)
[2017-02-01] MEDS ORDERED: MECL12.574 PO (19:50)
[2017-02-01] MEDS ORDERED: SIMV10TA PO (19:51)
[2017-02-01] MEDS ORDERED: TORS20TA PO (19:51)
[2017-02-01] MEDS ORDERED: TERB250T4 PO (19:51)
[2017-02-01] MEDS ORDERED: DIOV40TA PO (19:51)
[2017-02-01] MEDS ORDERED: NITR1SUB3 SL (19:51)
[2017-02-01] MEDS ORDERED: SODIUM CHLORIDE 0.9% FLUSH 10 ML FLUSH IVF PRN (20:00)
[2017-02-01 20:17] LABS: AUTOMATED NEUTROPHIL # 2.6 TH/MM3 (1.8-7.7); BASOPHIL % 0.1 % (0.0-2.0); EOSINOPHIL # 0.1 TH/MM3 (0-0.4); EOSINOPHIL % 1.8 % (0.0-4.0); HEMO FLAGS DIFF FINAL; LYMPHOCYTE # 1.1 TH/MM3 (1.0-4.8); MEAN CELL VOLUME 90.8 FL (80.0-100.0); MEAN CORPUSCULAR HEMOGLOBIN 30.3 PG (27.0-34.0); MEAN CORPUSCULAR HGB CONC 33.3 % (32.0-36.0); MONO % 0.6 % (0.0-8.0); NEUT % 69.5 % (16.0-70.0); PLATELET COUNT 130 TH/MM3 (150-450); RED BLOOD COUNT 2.75 MIL/MM3 (4.00-5.30); WHITE BLOOD COUNT 3.8 TH/MM3 (4.0-11.0)
[2017-02-01 20:22] LABS: BLOOD, URINE NEG (NEG); GLUCOSE,URINE NEG (NEG); KETONE, URINE NEG (NEG); MUCUS URINE FEW /lpf (OCC); NITRITE,URINE NEG (NEG); SQUAMOUS EPITHELIAL CELL URINE <1 /hpf (0-5); URINE COLOR LIGHT-YELLOW (YELLW/STRAW)
[2017-02-01 20:25] LABS: COMMENT (UR) CATH-CULT NOT IND; CULTURE IF INDICATED CATH CULTURE NOT IND
[2017-02-01 20:26] LABS: APTT (PATIENT) 47.4 SEC (24.3-30.1); PROTHROMBIN TIME - PATIENT 10.7 SEC (9.8-11.6)
[2017-02-01 20:32] LABS: ANION GAP 9 MEQ/L (5-15); AST (GOT) 16 U/L (15-37); BICARBONATE 23.6 MEQ/L (21.0-32.0); BLOOD UREA NITROGEN 61 MG/DL (7-18); CHLORIDE 102 MEQ/L (98-107); GLOMERULAR FILTRATION RATE 14 ML/MIN (>89); POTASSIUM 4.9 MEQ/L (3.5-5.1); SODIUM (NA) 135 MEQ/L (136-145)
[2017-02-01 20:34] VITALS: RESP 16; O2SAT 96
[2017-02-01 20:37] LABS: ALKALINE PHOSPHATASE 195 U/L (45-117); ALT (GPT) 12 U/L (10-53); TOTAL BILIRUBIN ADULT 0.5 MG/DL (0.2-1.0)
[2017-02-01] MEDS ORDERED: SODIUM CHLOR 0.9% 250 ML INJ 250 ML IV ONE (21:30)
--- NOTE | 2017-02-01 21:30 | PD ---
HPI Chief Complaint: Bleeding Time Seen by Provider: 19:47 Travel History International Travel<30 days: No Contact w/Intl Traveler<30days: No Traveled to known affect area: No History of Present Illness HPI Patient is an 81-year-old female who was sent to the emergency room by her vinyl flooring installer, Dr. Linda Abbott for a blood transfusion and admission to the hospital. Patient reports that for the past few weeks, she has been feeling weaker than normal. Patient reports that she follow-up with her doctors and had blood work drawn which showed a hemoglobin of 8.4. Patient does have history of breast cancer, history of mastectomy in the past, she is taking Procrit injections given by her vinyl flooring installer. Reports that she would like her hemoglobin to be greater than 10. Patient was sent to the emergency room by her vinyl flooring installer and primary care docdtor: Dr. Hightower for admission and for blood transfusion. Patient denies fevers or chills, denies chest pain or shortness of breath. Patient denies any abdominal pain, denies vomiting coffee ground emesis or denies melena or hematochezia. Patient reports that she has been eating like her normal self and does have an appetite. PFSH Past Medical History Hx Anticoagulant Therapy: Yes (plavix) Arthritis: Yes (PAGE KNEES/LEGS) Asthma: No Autoimmune Disease: No Blood Disorders: No Anxiety: No Depression: No Heart Rhythm Problems: No Cancer: Yes (Right breast) Cardiac Catheterization: Yes Cardiovascular Problems: Yes (htn, mi) High Cholesterol: Yes Chemotherapy: Yes Chest Pain: Yes Congestive Heart Failure: No COPD: No Cerebrovascular Accident: Yes Coronary Artery Disease: Yes Diabetes: No Diminished Hearing: No Endocrine: No Fibromyalgia: Yes Gastrointestinal Disorders: Yes GERD: Yes Gout: Yes Genitourinary: Yes (Chronic kidney disease, stage 3) Headaches: Yes Hiatal Hernia: Yes Hypertension: Yes Immune Disorder: No Implanted Vascular Access Dvce: Yes ( ) Musculoskeletal: Yes (Back pain) Neurologic: No Psychiatric: No Reproductive: No Respiratory: No Immunizations Current: Yes Migraines: No Pneumonia: Yes Radiation Therapy: No Renal Failure: Yes (50%) Seizures: No Sickle Cell Disease: No Sleep Apnea: No Thyroid Disease: No Ulcer: No PNEUMOCCOCAL Vaccine (Year): 2 Menopausal: Yes Past Surgical History AICD: No Arteriovenous Shunt: No Body Medical Devices: Left subclavian port, LLQ TENS unit Cardiac Surgery: Yes (CABG (QUADR BYPASS)) Cholecystectomy: Yes Coronary Artery Bypass Graft: Yes (FIVE VESSEL BYPASS) Coronary Stent: Yes (X2) Ear Surgery: No Endocrine Surgery: No Eye Surgery: No Genitourinary Surgery: No Gynecologic Surgery: Yes (MASTECTOMY (RIGHT)) Insulin Pump: No Joint Replacement: No Mastectomy: Yes (R BREAST) Oral Surgery: Yes (TEETH REMOVED) Pacemaker: No Thoracic Surgery: No Tonsillectomy: Yes Other Surgery: Yes (CABG, R MASTECTOMY, LAMINECTOMY) Social History Alcohol Use: No Tobacco Use: No Substance Use: No Allergies-Medications (Allergen,Severity, Reaction): Coded Allergies: ALBERTO Inhibitors (Verified Allergy, Severe, 02/01/17) Aspirin (Verified Allergy, Severe, throat swelling, 02/01/17) Cipro (Verified Allergy, Severe, 02/01/17) MRI PRECAUTION (Verified Allergy, Severe, INTERNAL TENS UNIT, 02/01/17) Stadol (Verified Allergy, Severe, "PUT ME IN WITHDRAW", 02/01/17) Sulfa (Verified Allergy, Severe, RASH, 02/01/17) NOT STATED Ultram (Verified Allergy, Severe, N/V, 02/01/17) *MDRO Multi-Drug Resistant Organism (Verified Allergy, Unknown, 02/01/17) 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 Amlodipine (Verified Adverse Reaction, Severe, SEVERE, ACUTE LIVER INJURY , 02/01/17) Reported Meds & Prescriptions Reported Meds & Active Scripts Active Erythromycin Opth Oint 5 Mg/Gm Oint 1 Applic LEFT EYE Q6HR Coreg (Carvedilol) 6.25 Mg Tab 6.25 Mg PO Q12HR Reported Torsemide 20 Mg Tab 20 Mg PO DAILY Nitroglycerin SL (Nitroglycerin) 0.4 Mg Subl 0.4 Mg SL DIRECTED PRN ONE TABLET UNDER THE TONGUE NEEDED FOR CHEST PAIN, MAY REPEAT EVERY FIVE MINUTES FOR A TOTAL OF 3 DOSES OR CALL 911 IF NO RELIEF Diovan (Valsartan) 40 Mg Tab 40 Mg PO DAILY Terbinafine 250 Mg Tab 250 Mg PO DAILY Simvastatin 10 Mg Tab 10 Mg PO DAILY Pantoprazole (Pantoprazole Sodium) 40 Mg Tab 40 Mg PO DAILY Meclizine (Meclizine HCl) 25 Mg Tab 25 Mg PO TID PRN Meclizine (Meclizine HCl) 12.5 Mg Tab 12.5 Mg PO DIRECTED PRN Floranex (Lactobacillus Acidophilus) 1 Tab 4 Tab PO BID Allopurinol 100 Mg Tab 100 Mg PO DAILY Nucynta (Tapentadol) 100 Mg Tab 150 Mg PO TID PRN Valsartan 40 Mg Tab 40 Mg PO DAILY Ondansetron HCl 4 Mg Tab 4 Mg PO Q6HR PRN Potassium Chloride ER (Potassium Chloride) 10 Meq Tab 5 Meq PO BID Plavix (Clopidogrel Bisulfate) 75 Mg Tab 75 Mg PO DAILY Oxycodone (Oxycodone HCl) 20 Mg Tab 20 Mg PO Q4-6H PRN NOT TO EXCEED 5 TABLETS/24HRS Fentanyl Patch 72 HR (Fentanyl) 75 Mcg/Hr Patch 150 Mcg T-DERMAL Q72H Remove old patches when new ones placed. Review of Systems General / Constitutional: No: Fever Eyes: No: Visual changes HENT: No: Headaches Cardiovascular: No: Chest Pain or Discomfort Respiratory: No: Shortness of Breath Gastrointestinal: No: Abdominal Pain Genitourinary: No: Dysuria Musculoskeletal: No: Pain Skin: No Rash Neurologic: Positive: Weakness Psychiatric: No: Depression Endocrine: No: Polydipsia Hematologic/Lymphatic: No: Easy Bruising Physical Exam Narrative GENERAL: Mild distress SKIN: Warm and pale appearing. HEAD: Atraumatic. Normocephalic. EYES: Pupils equal and round. No scleral icterus. No injection or drainage. ENT: No nasal bleeding or discharge. Mucous membranes pink and moist. NECK: Trachea midline. No JVD. CARDIOVASCULAR: Regular rate and rhythm. No murmur appreciated. RESPIRATORY: No accessory muscle use. Clear to auscultation. Breath sounds equal bilaterally. GASTROINTESTINAL: Abdomen soft, non-tender, nondistended. Lightly positive heme stool, stool dark green, exam performed with RN at bedside MUSCULOSKELETAL: No obvious deformities. No clubbing. No cyanosis. No edema. NEUROLOGICAL: Awake and alert. No obvious cranial nerve deficits. Motor grossly within normal limits. Normal speech. PSYCHIATRIC: Appropriate mood and affect; insight and judgment normal. Data Data Last Documented VS Vital Signs Date Time Temp Pulse Resp B/P Pulse Ox O2 Delivery O2 Flow Rate FiO2 02/01/17 21:46 57 16 160/61 97 02/01/17 16:01 97.6 Room Air Orders Complete Blood Count With Diff (02/01/17 19:48) Comprehensive Metabolic Panel (02/01/17 19:48) Prothrombin Time / Inr (Pt) (02/01/17 19:48) Act Partial Throm Time (Ptt) (02/01/17 19:48) Urinalysis - C+S If Indicated (02/01/17 19:48) Type And Screen (02/01/17 19:48) Ecg Monitoring (02/01/17 19:48) Iv Access Insert/Monitor (02/01/17 19:48) Oximetry (02/01/17 19:48) Sodium Chlor 0.9% 1000 Ml Inj (Ns 1000 M (02/01/17 19:48) Sodium Chloride 0.9% Flush (Ns Flush) (02/01/17 20:00) Electrocardiogram (02/01/17 ) Lipase (02/01/17 19:48) Oxycodone (Roxicodone) (02/01/17 20:45) Heparin Central Flush (Heparin Central F (02/01/17 21:30) Red Blood Cells (Rbc) (02/01/17 21:17) Blood Product Administration .UPON TRANSFUSION (02/01/17 21:17) Sodium Chlor 0.9% 250 Ml Inj (Ns 250 Ml (02/01/17 21:30) Admit Order (Ed Use Only) (02/01/17 21:51) Labs Laboratory Tests Test 02/01/17 02/01/17 19:55 21:17 White Blood Count 3.8 TH/MM3 Red Blood Count 2.75 MIL/MM3 Hemoglobin 8.3 GM/DL Hematocrit 25.0 % Mean Corpuscular Volume 90.8 FL Mean Corpuscular Hemoglobin 30.3 PG Mean Corpuscular Hemoglobin 33.3 % Concent Red Cell Distribution Width 19.0 % Platelet Count 130 TH/MM3 Mean Platelet Volume 8.2 FL Neutrophils (%) (Auto) 69.5 % Lymphocytes (%) (Auto) 28.0 % Monocytes (%) (Auto) 0.6 % Eosinophils (%) (Auto) 1.8 % Basophils (%) (Auto) 0.1 % Neutrophils # (Auto) 2.6 TH/MM3 Lymphocytes # (Auto) 1.1 TH/MM3 Monocytes # (Auto) 0.0 TH/MM3 Eosinophils # (Auto) 0.1 TH/MM3 Basophils # (Auto) 0.0 TH/MM3 CBC Comment DIFF FINAL Differential Comment Prothrombin Time 10.7 SEC Prothromb Time International 1.0 RATIO Ratio Activated Partial 47.4 SEC Thromboplast Time Urine Color LIGHT-YELLOW Urine Turbidity CLEAR Urine pH 5.0 Urine Specific [place] 1.009 Urine Protein NEG mg/dL Urine Glucose (UA) NEG mg/dL Urine Ketones NEG mg/dL Urine Occult Blood NEG Urine Nitrite NEG Urine Bilirubin NEG Urine Urobilinogen LESS THAN 2.0 MG/DL Urine Leukocyte Esterase NEG Urine Squamous Epithelial <1 /hpf Cells Urine Mucus FEW /lpf Microscopic Urinalysis Comment CATH-CULT NOT IND Sodium Level 135 MEQ/L Potassium Level 4.9 MEQ/L Chloride Level 102 MEQ/L Carbon Dioxide Level 23.6 MEQ/L Anion Gap 9 MEQ/L Blood Urea Nitrogen 61 MG/DL Creatinine 3.20 MG/DL Estimat Glomerular Filtration 14 ML/MIN Rate Random Glucose 76 MG/DL Calcium Level 8.3 MG/DL Total Bilirubin 0.5 MG/DL Aspartate Amino Transf 16 U/L (AST/SGOT) Alanine Aminotransferase 12 U/L (ALT/SGPT) Alkaline Phosphatase 195 U/L Total Protein 6.9 GM/DL Albumin 3.6 GM/DL Lipase 81 U/L Blood Type A POSITIVE Antibody Screen NEGATIVE Crossmatch Leukocyte-Reduced Red Blood Cells Blood Bank Comment MDM Medical Decision Making Medical Screen Exam Complete: Yes Emergency Medical Condition: Yes Interpretation(s) EKG at 2029: Sinus bradycardia at 56 beats a minute, QT/QTc 423/414 Vital Signs Date Time Temp Pulse Resp B/P Pulse Ox O2 Delivery O2 Flow Rate FiO2 02/01/17 20:34 16 96 02/01/17 19:41 18 02/01/17 16:01 97.6 66 24 124/58 100 Room Air Differential Diagnosis Symptomatic anemia, UTI, dehydration, electrolyte abnormality, ACS, GI bleed Narrative Course 81-year-old female who was sent to the emergency room by her oncologist as well as her primary care doctor for blood transfusion. She with history of breast cancer, currently receiving Procrit injections, reports that she has been having generalized weakness for the past few weeks. Patient had outpatient labs drawn which showed a hemoglobin of 8.4, patient's physicians would like patient's hemoglobin to be greater than 10. Request for patient to be admitted to the hospital for blood transfusion. Patient with no focal concerns at this time, I did perform recta; exam on patient and she did have a slightly heme positive dark green stool on exam. Patient will require gi bleed workup. On patient's labwork, patient with a creatinine of 3.20 which is elevated from her baseline, patient's BUN and creatinine on December 25, 2016 was 26/1.65 Patient's hemoglobin today is 8.3, 1 unit of blood was ordered for transfusion. Case was reviewed with Lam NOVAK, who accepts pt to service of [facility] requests admission to Dr. Johnson Physician Communication Physician Communication case reviewed with lam novak, accepts pt to service under Dr. Johnson Diagnosis Primary Impression: Symptomatic anemia Additional Impressions: Renal failure GI bleed Admitting Information Admitting Physician Requests: Admit Clary Cortez DO Feb 01, 2017 21:29
[2017-02-01 21:46] VITALS: BP 160/61; PULSE 57; RESP 16; O2SAT 97
[2017-02-01 22:05] VITALS: PULSE 57; RESP 18; TEMP 97.4; O2SAT 97
[2017-02-01 22:22] VITALS: TEMP 97.4
--- NOTE | 2017-02-01 22:48 | EKG ---
Date Performed: 02/01/2017 Time Performed: 20:30:36 PTAGE: 81 years EKG: SINUS BRADYCARDIA BORDERLINE ECG PREVIOUS TRACING : 12/23/2016 18.17 No significant change from previous tracing noted. DOCTOR: Tobin Hdz Interpretating Date/Time 02/01/2017 22:46:41
[2017-02-01] MEDS ORDERED: SODIUM CHLORIDE 0.9% FLUSH 10 ML FLUSH IV FLUSH PRN (23:30)
[2017-02-01] MEDS ORDERED: NALOXONE HCL 0.4 MG/ML AMP IV PRN (23:30)
[2017-02-01] MEDS ORDERED: ACETAMINOPHEN 325 MG TAB PO PRN (23:30)
[2017-02-01] MEDS: SODIUM CHLOR 0.9% 1000 ML INJ 1,000 ML IV SCH (23:54)
[2017-02-01] MEDS: PANTOPRAZOLE SODIUM 40 MG VIAL IV PUSH SCH (23:55)
[2017-02-02 00:21] VITALS: BP 143/73; PULSE 61; RESP 18; TEMP 96.2; O2SAT 92
[2017-02-02 04:00] VITALS: BP 129/59; PULSE 62; RESP 17; TEMP 97.1; O2SAT 94
[2017-02-02 07:35] LABS: ANION GAP 8 MEQ/L (5-15); BICARBONATE 24.1 MEQ/L (21.0-32.0); BLOOD UREA NITROGEN 55 MG/DL (7-18); CHLORIDE 107 MEQ/L (98-107); GLOMERULAR FILTRATION RATE 16 ML/MIN (>89); POTASSIUM 4.5 MEQ/L (3.5-5.1); SODIUM (NA) 139 MEQ/L (136-145)
[2017-02-02 07:59] LABS: FERRITIN 902 NG/ML (8-252); TRANSFERRIN IRON PROFILE 137 MG/DL (200-360)
[2017-02-02 08:29] VITALS: BP 118/54; PULSE 58; RESP 16; TEMP 98.5; O2SAT 97
[2017-02-02] MEDS: SODIUM CHLORIDE 0.9% FLUSH 10 ML FLUSH IV FLUSH SCH ×2 (08:29→20:04)
[2017-02-02] MEDS ORDERED: NITROGLYCERIN 0.4 MG SL 25 TABS/BTL SL PRN (08:30)
[2017-02-02] MEDS ORDERED: MECLIZINE HCL 25 MG TAB PO PRN ×2 (08:30)
[2017-02-02] MEDS: CARVEDILOL 6.25 MG TAB PO SCH ×2 (09:00→20:03)
[2017-02-02] MEDS ORDERED: TERBINAFINE 250 MG TAB PO SCH (09:00)
[2017-02-02] MEDS ORDERED: ONDANSETRON ODT 4 MG TAB PO PRN (09:30)
[2017-02-02] MEDS ORDERED: TAPENTADOL 150 MG PO PRN (10:00)
[2017-02-02] MEDS ORDERED: fentaNYL 75 MCG/HR PATCH T-DERMAL SCH (10:00)
[2017-02-02 12:00] VITALS: BP 128/52; PULSE 56; RESP 18; TEMP 96.5; O2SAT 97
--- NOTE | 2017-02-02 12:35 | HHI.HP ---
HPI Service [facility] Primary Care Physician Wilder Hightower M.D. Admission Diagnosis Symptomatic anemia, renal insuffiency Diagnoses: Chief Complaint: tired, weak, back pain, abnormal lab work (Arabella Green) Travel History International Travel<30 Days: No Contact w/Intl Traveler <30 Da: No Traveled to Known Affected Are: No (Arabella Green) History of Present Illness This is an 80-year-old elderly female with significant past medical history of coronary artery disease, CK D stage III, chronic back pain on chronic narcotics , breast cancer. Patient presented to the emergency room at the request of her casing grader Dr. Linda Abbott. Patient is altered, she doesn't know why she is here. She complains of generalized weakness and back pain. Per review of emergency room records, Dr. Abbott sent patient for a blood transfusion, we'll like to keep hemoglobin greater than 10.. Apparently the patient had been feeling weaker than normal and went to see Dr. Abbott which showed a hemoglobin of 8.4. Patient had been receiving Procrit injections by her casing grader. Patient states that she also saw Dr. Salamanca her primary care physician. She denies any abdominal discomfort, no diarrhea. She thinks she may have seen blood in her stool. No hematemesis. She denies any chest pain, no shortness of breath. Patient is known to the undersigned from previous admissions, she usually alert and oriented x 3. She has 2 fentanyl patches on, each 75 g, in addition she takes Nucynta. At this time I requested for the nurse to remove the patches. Patient was evaluated in the emergency room, hemoglobin was 8.3 and hematocrit 25. Haptoglobin is 253. BUN and creatinine are elevated, 61 and creatinine 3.2. Patient has been voiding. Rectal exam performed in the emergency room showed slightly heme-positive dark green stool on exam. One unit of blood has been given. Patient is admitted for further evaluation and treatment. (Arabella Green) Review of Systems ROS Limitations: Clinical Condition, Altered Mental Status Constitutional: COMPLAINS OF: Fatigue Musculoskeletal: COMPLAINS OF: Joint pain, Muscle aches, Back pain (Arabella Green) Past Family Social History Past Medical History HTN CAD s/p CABG, stent CKD Hyperlipidemia CKD 3 GERD Anemia Rheumatoid arthritis Fibromyalgia Chronic back pain Mastectomy for history of breast cancer Cellulitis of left hand Past Surgical History Right Mastectomy CABG Stent placement Spinal surgery Reported Medications Reported Meds & Active Scripts Active Erythromycin Opth Oint 5 Mg/Gm Oint 1 Applic LEFT EYE Q6HR Coreg (Carvedilol) 6.25 Mg Tab 6.25 Mg PO Q12HR Reported Torsemide 20 Mg Tab 20 Mg PO DAILY Nitroglycerin SL (Nitroglycerin) 0.4 Mg Subl 0.4 Mg SL DIRECTED PRN ONE TABLET UNDER THE TONGUE NEEDED FOR CHEST PAIN, MAY REPEAT EVERY FIVE MINUTES FOR A TOTAL OF 3 DOSES OR CALL 911 IF NO RELIEF Diovan (Valsartan) 40 Mg Tab 40 Mg PO DAILY Terbinafine 250 Mg Tab 250 Mg PO DAILY Simvastatin 10 Mg Tab 10 Mg PO DAILY Pantoprazole (Pantoprazole Sodium) 40 Mg Tab 40 Mg PO DAILY Meclizine (Meclizine HCl) 25 Mg Tab 25 Mg PO TID PRN Meclizine (Meclizine HCl) 12.5 Mg Tab 12.5 Mg PO DIRECTED PRN Floranex (Lactobacillus Acidophilus) 1 Tab 4 Tab PO BID Allopurinol 100 Mg Tab 100 Mg PO DAILY Nucynta (Tapentadol) 100 Mg Tab 150 Mg PO TID PRN Valsartan 40 Mg Tab 40 Mg PO DAILY Ondansetron HCl 4 Mg Tab 4 Mg PO Q6HR PRN Potassium Chloride ER (Potassium Chloride) 10 Meq Tab 5 Meq PO BID Plavix (Clopidogrel Bisulfate) 75 Mg Tab 75 Mg PO DAILY Oxycodone (Oxycodone HCl) 20 Mg Tab 20 Mg PO Q4-6H PRN NOT TO EXCEED 5 TABLETS/24HRS Fentanyl Patch 72 HR (Fentanyl) 75 Mcg/Hr Patch 150 Mcg T-DERMAL Q72H Remove old patches when new ones placed. (Arabella Green) Allergies: Coded Allergies: ALBERTO Inhibitors (Verified Allergy, Severe, 02/01/17) Aspirin (Verified Allergy, Severe, throat swelling, 02/01/17) Cipro (Verified Allergy, Severe, 02/01/17) MRI PRECAUTION (Verified Allergy, Severe, INTERNAL TENS UNIT, 02/01/17) Stadol (Verified Allergy, Severe, "PUT ME IN WITHDRAW", 02/01/17) Sulfa (Verified Allergy, Severe, RASH, 02/01/17) NOT STATED Ultram (Verified Allergy, Severe, N/V, 02/01/17) *MDRO Multi-Drug Resistant Organism (Verified Allergy, Unknown, 02/01/17) MRSA Sputum 2008 MRSA PCR Screen positive 04/05/15. Amlodipine (Verified Adverse Reaction, Severe, SEVERE, ACUTE LIVER INJURY , 02/01/17) Active Ordered Medications Inpatient Medications Acetaminophen (Tylenol) 650 mg Q4H PRN PO TEMP > 100.4; Start 02/01/17 at 23:30 Allopurinol (Zyloprim) 100 mg DAILY PO ; Start 02/02/17 at 09:00 Carvedilol (Coreg) 6.25 mg Q12HR PO ; Start 02/02/17 at 09:00 Clopidogrel Bisulfate (Plavix) 75 mg DAILY PO ; Start 02/02/17 at 09:00 Erythromycin (Ilotycin 0.5% Opth Oint) 1 applic Q6HR LEFT EYE ; Start 02/02/17 at 12:00 Fentanyl (Duragesic 75 Mcg Patch.72 Hr) 1 patch Q72H T-DERMAL ; Start 02/02/17 at 10:00 Heparin Sodium (Porcine) 500 units 500 units UNSCH IVF ; Start 02/01/17 at 21:30 Lactobacillus Acidophilus (Lactinex) 4 tab BID PO ; Start 02/02/17 at 10:00 Meclizine HCl (Antivert) 25 mg TID PRN PO VERTIGO; Start 02/02/17 at 08:30 Naloxone HCl (Narcan Inj) 0.4 mg UNSCH PRN IV SEE LABEL COMMENTS; Start at 23:30 Nitroglycerin (Nitrostat Sl) 0.4 mg 5 TIMES A DAY PRN SL CHEST PAIN; Start at 08:30 Ondansetron HCl (Zofran Odt) 4 mg Q6H PRN PO NAUSEA OR VOMITING; Start at 09:30 Ondansetron HCl (Zofran Inj) 4 mg Q6H PRN IVP NAUSEA OR VOMITING; Start at 23:30 Oxycodone HCl (Roxicodone) 20 mg Q6H PRN PO BREAKTHROUGH PAIN; Start 02/02/17 at 09:45 Pantoprazole Sodium (Protonix Inj) 40 mg Q24H IV PUSH Last administered on 02/01t 23:55; Start 02/02/17 at 00:00 Pantoprazole Sodium (Protonix) 40 mg DAILY PO ; Start 02/02/17 at 10:00 Patient Own Medication PT OWN MED: (Tapenta... Q6H PRN PO UNKNOWN PAIN SCALES; Start 02/02/17 at 10:00 Potassium Chloride (KCl) 10 meq DAILY PO ; Start 02/02/17 at 10:00 Pravastatin Sodium (Pravachol) 20 mg DAILY PO ; Start 02/02/17 at 10:00 Sodium Chloride (NS 1000 ml Inj) 1,000 ml @ 100 mls/hr Q10H IV Last administered on 02/01/17 23:54; Start 02/01/17 at 23:26 Sodium Chloride (NS Flush) 2 ml BID IV FLUSH ; Start 02/02/17 at 09:00 Terbinafine HCl (LamISIL) 250 mg EVERY OTHER DAY PO ; Start 02/03/17 at 09:00 Family History unable to obtain Social History No documented history of alcohol, no substance abuse, tobacco abuse. Patient lives with her grandson and [id number]. (Arabella Green) Physical Exam Vital Signs Vital Signs Date Time Temp Pulse Resp B/P Pulse Ox O2 Delivery O2 Flow Rate FiO2 02/02/17 08:29 98.5 58 16 118/54 97 02/02/17 04:00 97.1 62 17 129/59 94 02/02/17 00:21 96.2 61 18 143/73 92 02/01/17 22:22 97.4 02/01/17 22:05 97.4 57 18 97 02/01/17 21:46 57 16 160/61 97 02/01/17 20:34 16 96 02/01/17 19:41 18 02/01/17 16:01 97.6 66 24 124/58 100 Room Air Physical Exam GENERAL: This is a well-nourished, well-developed patient, in no apparent distress. SKIN: No rashes, ecchymoses or lesions. Cool and dry. HEAD: Atraumatic. Normocephalic. No temporal or scalp tenderness. EYES: Pupils equal round and reactive. Extraocular motions intact. No scleral icterus. No injection or drainage. ENT: Nose without bleeding, purulent drainage or septal hematoma. Throat without erythema, tonsillar hypertrophy or exudate. Uvula midline. Airway patent. NECK: Trachea midline. No JVD or lymphadenopathy. Supple, nontender, no meningeal signs. CARDIOVASCULAR: Regular rate and rhythm without murmurs, gallops, or rubs. RESPIRATORY: Clear to auscultation. Breath sounds equal bilaterally. No wheezes , rales, or rhonchi. GASTROINTESTINAL: Abdomen soft, non-tender, nondistended. No hepato-splenomegaly , or palpable masses. No guarding. MUSCULOSKELETAL: Extremities without clubbing, cyanosis, or edema. No joint tenderness, effusion, or edema noted. No calf tenderness. Negative Homans sign bilaterally. NEUROLOGICAL: Awake, alert oriented to self, able to provide the name of the city, follows commands, no focal deficit Laboratory Laboratory Tests Test 02/01/17 02/01/17 02/02/17 19:55 21:17 06:45 White Blood Count 3.8 Red Blood Count 2.75 Hemoglobin 8.3 Hematocrit 25.0 Mean Corpuscular Volume 90.8 Mean Corpuscular Hemoglobin 30.3 Mean Corpuscular Hemoglobin 33.3 Concent Red Cell Distribution Width 19.0 Platelet Count 130 Mean Platelet Volume 8.2 Neutrophils (%) (Auto) 69.5 Lymphocytes (%) (Auto) 28.0 Monocytes (%) (Auto) 0.6 Eosinophils (%) (Auto) 1.8 Basophils (%) (Auto) 0.1 Neutrophils # (Auto) 2.6 Lymphocytes # (Auto) 1.1 Monocytes # (Auto) 0.0 Eosinophils # (Auto) 0.1 Basophils # (Auto) 0.0 CBC Comment DIFF FINAL Differential Comment Prothrombin Time 10.7 Prothromb Time International 1.0 Ratio Activated Partial 47.4 Thromboplast Time Urine Color LIGHT-YELLOW Urine Turbidity CLEAR Urine pH 5.0 Urine Specific [place] 1.009 Urine Protein NEG Urine Glucose (UA) NEG Urine Ketones NEG Urine Occult Blood NEG Urine Nitrite NEG Urine Bilirubin NEG Urine Urobilinogen LESS THAN 2.0 Urine Leukocyte Esterase NEG Urine Squamous Epithelial <1 Cells Urine Mucus FEW Microscopic Urinalysis Comment CATH-CULT NOT IND Sodium Level 135 139 Potassium Level 4.9 4.5 Chloride Level 102 107 Carbon Dioxide Level 23.6 24.1 Anion Gap 9 8 Blood Urea Nitrogen 61 55 Creatinine 3.20 2.76 Estimat Glomerular Filtration 14 16 Rate Random Glucose 76 68 Calcium Level 8.3 7.5 Total Bilirubin 0.5 Aspartate Amino Transf 16 (AST/SGOT) Alanine Aminotransferase 12 (ALT/SGPT) Alkaline Phosphatase 195 Total Protein 6.9 Albumin 3.6 Lipase 81 Blood Type A POSITIVE Antibody Screen NEGATIVE Haptoglobin 253 Crossmatch Leukocyte-Reduced Red Blood Cells Blood Bank Comment Iron Level 125 Total Iron Binding Capacity 192 Percent Iron Saturation 65.2 Ferritin 902 Vitamin B12 Level 565 Folate GREATER THAN 20.0 (Arabella Green) Result Diagram: 02/01/17195402/02/17 0645 Assessment and Plan Problem List: (1) Symptomatic anemia (2) AYESHA (acute kidney injury) (3) HTN (hypertension) (4) Narcotic dependence (5) Altered mental status (6) Chronic pain (7) ASHD (arteriosclerotic heart disease) (8) HX: breast cancer Assessment and Plan Admit to Dr. Souza 81-year-old female sent from hematology and primary care physician's office for weakness, symptomatic anemia. Heme-positive stools. Has been receiving Procrit injections per hematology. Possible GI bleed. -GI has been consulted for evaluation, input is appreciated Continue with serial H&H Has received 1 unit of packed cells -Iron studies have been completed, results reviewed -Continue with Protonix Altered mental status, possibly secondary to narcotic dependence, anemia -Hold fentanyl at this time Acute on chronic kidney disease, now a stage IV -Continue with cautious hydration Avoid nephrotoxic agents Avoid NSAIDs Hold diuretics and ALBERTO inhibitor Repeat BMP in the morning Chronic pain and narcotic dependence Hold fentanyl patches Coronary artery disease, prior history of CABG Continue with home medications, Plavix and Coreg History of breast cancer Stable SCDs for DVT prophylaxis Protonix for GI prophylaxis Home medications reviewed, initiated as indicated Plan of care has been discussed with the patient, attending and registered nurse. Further management of the patient will be dependent on the hospital course This patient was seen by myself and Dr. Souza, this H&P is written on his behalf (Arabella Green) Assessment and Plan This is an 81-year-old female with a history of breast cancer. She also has problems with chronic pain syndrome and chronic narcotic dependence. She was seen by the undersigned today in room 710. She is a poor historian. She saw her memory physician oncologist Dr. Linda Abbott in the office yesterday. Secondary to her extreme generalized weakness and anemia with hemoglobin around 8 she was sent into the emergency department at [place]. She also was found to have elevated creatinine. GI consultation is ordered. An attempt is being made to try to wean the patient off the narcotics. The fentanyl patch now on hold. The case was discussed with the patient's nurse (Av Souza MD) Physician Certification 2 Midnight Certification Type: Admission for Inpatient Services Order for Inpatient Services The services are ordered in accordance with Medicare regulations or non- Medicare payer requirements, as applicable. In the case of services not specified as inpatient-only, they are appropriately provided as inpatient services in accordance with the 2-midnight benchmark. Estimated LOS (days): 2 2 days is the estimated time the patient will need to remain in the hospital, assuming treatment plan goals are met and no additional complications. Post-Hospital Plan: Home Health (Arabella Green) Problem Qualifiers (1) HTN (hypertension): Qualified Code: I10 - Essential hypertension (2) Altered mental status: Qualified Code: R41.0 - Disorientation (3) Chronic pain: Qualified Code: G89.4 - Chronic pain syndrome Arabella Green Feb 02, 2017 12:35 Av Souza MD Feb 02, 2017 17:02
--- NOTE | 2017-02-02 12:39 | PD.CONS ---
HPI History of Present Illness This is a 81 year old female with past medical hx of breast cancer, history of mastectomy in the past, she is taking Procrit injections given by her speeder tender who was sent to the emergency room by her speeder tender, Dr. Linda Abbott for a blood transfusion and admission to the hospital. Patient reports abdominal pain but better today. Her main issue is severe back pain. She reports nausea, and vomiting yesterday but non today. She denies vomiting coffee ground emesis, melena or hematochezia. Patient has been feeling weak for the past few weeks. Patient reports that she has been eating like her normal self and does have an appetite. Patient is bad historian and didn't know why she was here. Our records indicates she had EGD/colonoscopy in 2010-----> Distal esophagus stricture, s/p dilatation, small hiatal hernia, gastritis, normal duodenum, normal colon, bx benign. Patient has hx of chronic anemia, her base line around 9. Yesterday hgb is 8.3, no signs of bleeding. PFSH Past Medical History Per EMR HTN CAD s/p CABG, stent CKD Hyperlipidemia CKD GERD Anemia Chronic back pain Mastectomy for history of breast cancer Past Surgical History As above Coded Allergies: ALBERTO Inhibitors (Verified Allergy, Severe, 02/01/17) Aspirin (Verified Allergy, Severe, throat swelling, 02/01/17) Cipro (Verified Allergy, Severe, 02/01/17) MRI PRECAUTION (Verified Allergy, Severe, INTERNAL TENS UNIT, 02/01/17) Stadol (Verified Allergy, Severe, "PUT ME IN WITHDRAW", 02/01/17) Sulfa (Verified Allergy, Severe, RASH, 02/01/17) NOT STATED Ultram (Verified Allergy, Severe, N/V, 02/01/17) *MDRO Multi-Drug Resistant Organism (Verified Allergy, Unknown, 02/01/17) 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 Amlodipine (Verified Adverse Reaction, Severe, SEVERE, ACUTE LIVER INJURY , 02/01/17) Medications Current Medications Medications (Trade) Dose Ordered Sig/Loco Route Start Time Stop Time Status Last Admin Heparin Sodium (Porcine) 500 units 500 units UNSCH IVF 02/01/17 21:30 Sodium Chloride 250 ml @ 15 mls/hr ONCE ONCE IV 02/01/17 21:30 02/02/17 14:09 02/01/17 22:15 (NS 1000 ml Inj) 1,000 ml @ 100 mls/hr Q10H IV 02/01/17 23:26 02/01/17 23:54 (NS Flush) 2 ml UNSCH PRN IV FLUSH 02/01/17 23:30 (NS Flush) 2 ml BID IV FLUSH 02/02/17 09:00 (Tylenol) 650 mg Q4H PRN PO 02/01/17 23:30 (Zofran Inj) 4 mg Q6H PRN IVP 02/01/17 23:30 (Narcan Inj) 0.4 mg UNSCH PRN IV 02/01/17 23:30 (Protonix Inj) 40 mg Q24H IV PUSH 02/02/17 00:00 02/01/17 23:55 (Zyloprim) 100 mg DAILY PO 02/02/17 09:00 (Coreg) 6.25 mg Q12HR PO 02/02/17 09:00 (Plavix) 75 mg DAILY PO 02/02/17 09:00 (Ilotycin 0.5% Opth Oint) 1 applic Q6HR LEFT EYE 02/02/17 12:00 (Duragesic 75 Mcg Patch.72 Hr) 1 patch Q72H T-DERMAL 02/02/17 10:00 (Lactinex) 4 tab BID PO 02/02/17 10:00 (Antivert) 12.5 mg Q6H PRN PO 02/02/17 08:30 (Antivert) 25 mg TID PRN PO 02/02/17 08:30 (Protonix) 40 mg DAILY PO 02/02/17 10:00 (KCl) 10 meq DAILY PO 02/02/17 10:00 (Zofran Odt) 4 mg Q6H PRN PO 02/02/17 09:30 (Roxicodone) 20 mg Q6H PRN PO 02/02/17 09:45 (Pravachol) 20 mg DAILY PO 02/02/17 10:00 Patient Own Medication PT OWN MED: (Tapenta... Q6H PRN PO 02/02/17 10:00 Family History Non contributory Social History Denies X 3 Review of Systems Constitutional: COMPLAINS OF: Fatigue Endocrine: DENIES: Polyuria Eyes: DENIES: Double Vision Ears, nose, mouth, throat: DENIES: Hoarseness Respiratory: DENIES: Shortness of breath Cardiovascular: DENIES: Claudication Gastrointestinal: COMPLAINS OF: Abdominal pain, Nausea, Vomiting, DENIES: Black stools, Bloody stools, Constipation, Diarrhea, Difficulty Swallowing, Anorexia, Odynophagia, Swelling of Abdomen, Heartburn, Hematemesis Musculoskeletal: COMPLAINS OF: Back pain Integumentary: DENIES: Jaundice Hematologic/lymphatic: COMPLAINS OF: Bruising Immunologic/allergic: DENIES: Eczema Neurologic: DENIES: Abnormal gait Psychiatric: COMPLAINS OF: Confusion, DENIES: Anxiety GI Exam Vitals I&O Vital Signs Date Time Temp Pulse Resp B/P Pulse Ox O2 Delivery O2 Flow Rate FiO2 02/02/17 08:29 98.5 58 16 118/54 97 02/02/17 04:00 97.1 62 17 129/59 94 02/02/17 00:21 96.2 61 18 143/73 92 02/01/17 22:22 97.4 02/01/17 22:05 97.4 57 18 97 02/01/17 21:46 57 16 160/61 97 02/01/17 20:34 16 96 02/01/17 19:41 18 02/01/17 16:01 97.6 66 24 124/58 100 Room Air I/O 02/01/17 02/01/17 02/01/17 02/02/17 02/02/17 02/02/17 07:00 15:00 23:00 07:00 15:00 23:00 Intake Total 850 ml Balance 850 ml Intake IV Total 600 ml Packed Cells 250 ml # Voids 2 Laboratory Test 02/01/17 02/01/17 02/02/17 19:55 21:17 06:45 White Blood Count 3.8 TH/MM3 Red Blood Count 2.75 MIL/MM3 Hemoglobin 8.3 GM/DL Hematocrit 25.0 % Mean Corpuscular Volume 90.8 FL Mean Corpuscular Hemoglobin 30.3 PG Mean Corpuscular Hemoglobin 33.3 % Concent Red Cell Distribution Width 19.0 % Platelet Count 130 TH/MM3 Mean Platelet Volume 8.2 FL Neutrophils (%) (Auto) 69.5 % Lymphocytes (%) (Auto) 28.0 % Monocytes (%) (Auto) 0.6 % Eosinophils (%) (Auto) 1.8 % Basophils (%) (Auto) 0.1 % Neutrophils # (Auto) 2.6 TH/MM3 Lymphocytes # (Auto) 1.1 TH/MM3 Monocytes # (Auto) 0.0 TH/MM3 Eosinophils # (Auto) 0.1 TH/MM3 Basophils # (Auto) 0.0 TH/MM3 CBC Comment DIFF FINAL Differential Comment Prothrombin Time 10.7 SEC Prothromb Time International 1.0 RATIO Ratio Activated Partial 47.4 SEC Thromboplast Time Urine Color LIGHT-YELLOW Urine Turbidity CLEAR Urine pH 5.0 Urine Specific [place] 1.009 Urine Protein NEG mg/dL Urine Glucose (UA) NEG mg/dL Urine Ketones NEG mg/dL Urine Occult Blood NEG Urine Nitrite NEG Urine Bilirubin NEG Urine Urobilinogen LESS THAN 2.0 MG/DL Urine Leukocyte Esterase NEG Urine Squamous Epithelial <1 /hpf Cells Urine Mucus FEW /lpf Microscopic Urinalysis Comment CATH-CULT NOT IND Sodium Level 135 MEQ/L 139 MEQ/L Potassium Level 4.9 MEQ/L 4.5 MEQ/L Chloride Level 102 MEQ/L 107 MEQ/L Carbon Dioxide Level 23.6 MEQ/L 24.1 MEQ/L Anion Gap 9 MEQ/L 8 MEQ/L Blood Urea Nitrogen 61 MG/DL 55 MG/DL Creatinine 3.20 MG/DL 2.76 MG/DL Estimat Glomerular Filtration 14 ML/MIN 16 ML/MIN Rate Random Glucose 76 MG/DL 68 MG/DL Calcium Level 8.3 MG/DL 7.5 MG/DL Total Bilirubin 0.5 MG/DL Aspartate Amino Transf 16 U/L (AST/SGOT) Alanine Aminotransferase 12 U/L (ALT/SGPT) Alkaline Phosphatase 195 U/L Total Protein 6.9 GM/DL Albumin 3.6 GM/DL Lipase 81 U/L Blood Type A POSITIVE Antibody Screen NEGATIVE Haptoglobin 253 MG/DL Crossmatch Leukocyte-Reduced Red Blood Cells Blood Bank Comment Iron Level 125 MCG/DL Total Iron Binding Capacity 192 MCG/DL Percent Iron Saturation 65.2 % Ferritin 902 NG/ML Vitamin B12 Level 565 PG/ML Folate GREATER THAN 20.0 NG/ML Physical Examination HEENT: normocephalic; atraumatic; no jaundice. Throat is clear. NECK: Neck is supple, no JVD, no lymphadenopathy. CHEST: Chest is clear to auscultation and percussion. CARDIAC: Regular rate and rhythm with no murmur gallop or rubs. ABDOMEN: Soft, nondistended,some tenderness to LLQ; no hepatosplenomegaly; bowel sounds are present in all four quadrants. EXTREMITIES: No clubbing, cyanosis, or edema. SKIN: Normal; no rash; no jaundice. HOT TAR ROOFER: No focal deficits; alert and oriented to self and place. Assessment and Plan Plan - Chronic anemia, but now symptomatic with weakness for the past few weeks, she does have chronic kidney disease, this could be anemia of chronic disease- Patient was sent to the emergency room by her speeder tender, Dr. Linda Abbott for a blood transfusion and admission to the hospital. Patient reports abdominal pain but better today. Her main issue is severe back pain. She reports nausea, and vomiting yesterday but non today. She denies vomiting coffee ground emesis, melena or hematochezia. Patient has been feeling weak for the past few weeks. Patient reports that she has been eating like her normal self and does have an appetite. Patient is bad historian and didn't know why she was here. Our records indicates she had EGD/colonoscopy in 2010-----> Distal esophagus stricture, s/p dilatation, small hiatal hernia, gastritis, normal duodenum, normal colon, bx benign. Patient has hx of chronic anemia, her base line around 9. Yesterday hgb is 8.3, no signs of bleeding. - History of mastectomy in the past, she is taking Procrit injections given by her speeder tender - HTN, CAD, CKD per attending Plan: - LACIE - Tried speaking to grand child but no answer, will try again - NO signs of bleeding, chronic anemia, will hold off on any invasive procedure for now Patient her self would like to go home. - CT of abd/pelvis - Hemoccult - Monitor hh - Transfuse as needed - Notify GI for active bleeding - Further recommendation to follow based on clinical course Jose A Escobar Feb 02, 2017 12:39
[2017-02-02] MEDS ORDERED: DIATRIZOATE MEGLUM/DIATRIZOATE SOD 9 ML CUP PO ONE (13:15)
[2017-02-02] MEDS: PRAVASTATIN SOD 20 MG TAB PO SCH (14:28)
[2017-02-02] MEDS: LACTOBACILLUS ACIDOPHILUS TAB PO SCH ×2 (14:28→20:03)
[2017-02-02] MEDS: PANTOPRAZOLE SOD 40 MG DELAYED RELEASE TAB PO SCH (14:28)
[2017-02-02] MEDS: CLOPIDOGREL 75 MG TAB PO SCH (14:28)
[2017-02-02] MEDS: ALLOPURINOL 100 MG TAB PO SCH (14:32)
[2017-02-02] MEDS: POTASSIUM CHLORIDE 10 MEQ CONTROLLED RELEASE TAB PO SCH (14:32)
[2017-02-02] MEDS: SODIUM CHLOR 0.9% 1000 ML INJ 1,000 ML IV SCH ×2 (14:32→19:26)
[2017-02-02] MEDS: ERYTHROMYCIN 0.5% OPTH OINT 3.5 GM TUBO LEFT EYE SCH ×2 (14:32→18:36)
[2017-02-02 16:00] VITALS: BP 153/46; PULSE 58; RESP 18; TEMP 96.7; O2SAT 95
[2017-02-02 20:00] VITALS: BP 156/63; PULSE 69; RESP 20; TEMP 97.8; O2SAT 97
--- NOTE | 2017-02-02 22:27 | RADRPT ---
EXAM DATE/TIME: 02/02/2017 19:13 [facility] COMPARISON: CHEST SINGLE AP, December 23, 2016, 18:51. CT LUMBAR SPINE W/O CONTRAST, January 09, 2014, 13:45. INDICATIONS : Abdominal pain. ORAL CONTRAST: Patient refused oral contrast. RADIATION DOSE: 8.01 CTDIvol (mGy) MEDICAL HISTORY : Hypertension. Hernia. Gastroesophageal reflux disease. SURGICAL HISTORY : Cholecystectomy. Pain pump. Lumbar laminectomy. ENCOUNTER: Initial ACUITY: 1 day PAIN SCALE: 5/10 LOCATION: abdomen TECHNIQUE: Volumetric scanning of the abdomen and pelvis was performed. Using automated exposure control and ad justment of the mA and/or kV according to patient size, radiation dose was kept as low as reasonably achievable to obtain optimal diagnostic quality images. FINDINGS: LOWER LUNGS: Small bilateral pleural effusions. Subcentimeter nodular density in the subpleural posterolateral rig ht lung base. Tree in bud infiltrate at the left lung base. Mild scarring or atelectasis. Large irreg ular-appearing hiatal hernia. LIVER: Left lobe cyst. No evidence of biliary ductal dilatation. Gallbladder surgically absent. SPLEEN: Normal size without lesion. PANCREAS: Within normal limits. KIDNEYS: Moderate left hydronephrosis. Proximal hydroureter. No definite stones seen. Right kidney is focally unremarkable. ADRENAL GLANDS: Within normal limits. VASCULAR: Extremely dense diffuse atherosclerotic calcification. BOWEL/MESENTERY: Prominent irregular-appearing hiatal hernia. Small and large bowel grossly normal in caliber and appe arance. ABDOMINAL WALL: Within normal limits. RETROPERITONEUM: There is no lymphadenopathy. BLADDER: No wall thickening or mass. REPRODUCTIVE: Small volume of free pelvic fluid, nonspecific. INGUINAL: There is no lymphadenopathy or hernia. MUSCULOSKELETAL: Innumerable sclerotic bony lesions consistent with widespread metastatic disease. Severe degenerative changes and scoliosis in the spine. CONCLUSION: Widespread bony metastatic disease. Concerning findings in the lung bases. Unusual appearing large hiatal hernia with associated mass not excluded. Left kidney hydronephrosis and proximal hydroureter. Small volume of nonspecific free pelvic fluid. West Martin MD on February 02, 2017 at 22:16 Board Certified Radiologist. This report was verified electronically.
[2017-02-03] VITALS (7 sets, daily range): BP systolic 130–196; BP diastolic 61–82; PULSE 57–73; RESP 18–20; TEMP 96.7–98.4; O2SAT 94–100
[2017-02-03] MEDS: SODIUM CHLOR 0.9% 1000 ML INJ 1,000 ML IV SCH (03:17)
[2017-02-03] MEDS: ERYTHROMYCIN 0.5% OPTH OINT 3.5 GM TUBO LEFT EYE SCH ×5 (05:48→23:55)
[2017-02-03 05:54] LABS: HEMATOCRIT 26.7 % (35.0-46.0); MEAN CELL VOLUME 92.3 FL (80.0-100.0); MEAN CORPUSCULAR HEMOGLOBIN 29.8 PG (27.0-34.0); MEAN CORPUSCULAR HGB CONC 32.3 % (32.0-36.0); PLATELET COUNT 87 TH/MM3 (150-450); RED BLOOD COUNT 2.89 MIL/MM3 (4.00-5.30); RED CELL DISTRIBUTION WIDTH 18.8 % (11.6-17.2); WHITE BLOOD COUNT 2.2 TH/MM3 (4.0-11.0)
[2017-02-03 05:59] LABS: REVIEW FLAG FINAL
[2017-02-03 06:34] LABS: BICARBONATE 19.2 MEQ/L (21.0-32.0); POTASSIUM 4.4 MEQ/L (3.5-5.1)
[2017-02-03] MEDS: SODIUM CHLORIDE 0.9% FLUSH 10 ML FLUSH IV FLUSH SCH ×2 (09:00→21:00)
[2017-02-03] MEDS: PRAVASTATIN SOD 20 MG TAB PO SCH (09:20)
[2017-02-03] MEDS: TERBINAFINE 250 MG TAB PO SCH (09:20)
[2017-02-03] MEDS: PANTOPRAZOLE SOD 40 MG DELAYED RELEASE TAB PO SCH (09:20)
[2017-02-03] MEDS: CARVEDILOL 6.25 MG TAB PO SCH ×2 (09:20→21:03)
[2017-02-03] MEDS: CLOPIDOGREL 75 MG TAB PO SCH (09:20)
[2017-02-03] MEDS: ALLOPURINOL 100 MG TAB PO SCH (09:20)
[2017-02-03] MEDS: LACTOBACILLUS ACIDOPHILUS TAB PO SCH ×2 (09:20→21:03)
[2017-02-03] MEDS: POTASSIUM CHLORIDE 10 MEQ CONTROLLED RELEASE TAB PO SCH (09:20)
--- NOTE | 2017-02-03 14:17 | HHI.GIFU ---
Subjective Remarks Patient is resting in bed with severe abdomen pain. No nausea or vomiting or bleeding. Objective Vitals I&O Vital Signs Date Time Temp Pulse Resp B/P Pulse Ox O2 Delivery O2 Flow Rate FiO2 02/03/17 12:00 97.6 61 20 130/61 95 02/03/17 10:48 94 21 02/03/17 08:00 96.7 61 20 166/72 97 02/03/17 04:39 98.4 73 20 196/79 98 02/03/17 04:10 18 02/03/17 00:23 98.4 57 20 148/65 98 02/02/17 20:58 21 02/02/17 20:46 18 02/02/17 20:00 97.8 69 20 156/63 97 02/02/17 16:00 96.7 58 18 153/46 95 I/O 02/02/17 02/02/17 02/02/17 02/03/17 02/03/17 02/03/17 07:00 15:00 23:00 07:00 15:00 23:00 Intake Total 850 ml 1362 ml 520 ml 120 ml Output Total 600 ml 400 ml 401 ml Balance 850 ml 762 ml 120 ml -281 ml Intake Oral 520 ml 120 ml IV Total 600 ml 1362 ml Packed Cells 250 ml Output Urine Total 600 ml 400 ml 401 ml # Voids 2 3 1 # Bowel Movements 1 2 1 Laboratory Laboratory Tests Test 02/03/17 05:30 White Blood Count 2.2 Red Blood Count 2.89 Hemoglobin 8.6 Hematocrit 26.7 Mean Corpuscular Volume 92.3 Mean Corpuscular Hemoglobin 29.8 Mean Corpuscular Hemoglobin 32.3 Concent Red Cell Distribution Width 18.8 Platelet Count 87 Mean Platelet Volume 7.5 Sodium Level 141 Potassium Level 4.4 Chloride Level 110 Carbon Dioxide Level 19.2 Anion Gap 12 Blood Urea Nitrogen 44 Creatinine 2.49 Estimat Glomerular Filtration 18 Rate Random Glucose 55 Calcium Level 7.7 Date/Time Procedure Status Source Growth 02/03/17 07:30 Stool Occult Blood (MELISSA) - Final Complete Stool Stool HEMOCCULT NEGATIVE Imaging Last Impressions Abdomen/Pelvis CT 02/02/17 0000 Signed Impressions: Service Date/Time: Thursday, February 02, 2017 19:13 - CONCLUSION: Widespread bony metastatic disease. Concerning findings in the lung bases. Unusual appearing large hiatal hernia with associated mass not excluded. Left kidney hydronephrosis and proximal hydroureter. Small volume of nonspecific free pelvic fluid. West Martin MD Physical Exam HEENT: normocephalic; atraumatic; no jaundice. CHEST: Chest is clear to auscultation and percussion. CARDIAC: Regular rate and rhythm with no murmur gallop or rubs. ABDOMEN: Soft, nondistended, severe tenderness to palpation; no hepatosplenomegaly; bowel sounds are present in all four quadrants. EXTREMITIES: No clubbing, cyanosis, or edema. SKIN: Normal; no rash; no jaundice. SENIOR C SOFTWARE DEVELOPER: alert and oriented. Assessment and Plan Plan - Chronic anemia, but now symptomatic with weakness for the past few weeks, she does have chronic kidney disease, this could be anemia of chronic disease- Ct on (02/02/17) ---->Widespread bony metastatic disease. Concerning findings in the lung bases. Unusual appearing large hiatal hernia with associated mass not excluded. Left kidney hydronephrosis and proximal hydroureter. Small volume of nonspecific free pelvic fluid. Patient was sent to the emergency room by her straw hat presser, Dr. Linda Abbott for a blood transfusion and admission to the hospital. Patient reports abdominal pain. Her main issue is severe back pain. Patient reports that she has been eating like her normal self and does have an appetite. Our records indicates she had EGD/colonoscopy in 2010-----> Distal esophagus stricture, s/p dilatation, small hiatal hernia, gastritis, normal duodenum, normal colon, bx benign. Patient has hx of chronic anemia, her base line around 9. - History of mastectomy in the past, she is taking Procrit injections given by her straw hat presser - Widespread bony metastatic disease- Ct above, will consult oncology - HTN, CAD, CKD per attending Plan: - LACIE - Ct concerning for metastatic disease, will consult oncology - consider EGD on Sunday - Hemoccult - Monitor hh - Transfuse as needed - Notify GI for active bleeding - Further recommendation to follow based on clinical course - Patient seen and examined by Dr. Mercado and myself and this note is written on his behalf. Jose A Escobar Feb 03, 2017 14:17
--- NOTE | 2017-02-03 15:04 | HHI.PR ---
Subjective Interval History Awake, verbal, complaining of abdominal discomfort possibly mild withdrawal from narcotics. Review of Systems Constitutional Constitutional Remarks 10 systems reviewed and otherwise negative Vitals/Results Intake & Output 02/02/17 02/02/17 02/03/17 15:00 23:00 07:00 Intake Total 1362 ml 520 ml 120 ml Output Total 600 ml 400 ml 401 ml Balance 762 ml 120 ml -281 ml Intake Oral 520 ml 120 ml IV Total 1362 ml Output Urine Total 600 ml 400 ml 401 ml # Voids 3 # Bowel Movements 1 2 Vital Signs Vital Signs Date Time Temp Pulse Resp B/P Pulse Ox O2 Delivery O2 Flow Rate FiO2 02/03/17 12:00 97.6 61 20 130/61 95 02/03/17 10:48 94 21 02/03/17 08:00 96.7 61 20 166/72 97 02/03/17 04:39 98.4 73 20 196/79 98 02/03/17 04:10 18 02/03/17 00:23 98.4 57 20 148/65 98 02/02/17 20:58 21 02/02/17 20:46 18 02/02/17 20:00 97.8 69 20 156/63 97 02/02/17 16:00 96.7 58 18 153/46 95 CBC/BMP: 02/03/17 0530 02/03/17 0530 Lab Results Laboratory Tests Test 02/03/17 05:30 White Blood Count 2.2 TH/MM3 Red Blood Count 2.89 MIL/MM3 Hemoglobin 8.6 GM/DL Hematocrit 26.7 % Mean Corpuscular Volume 92.3 FL Mean Corpuscular Hemoglobin 29.8 PG Mean Corpuscular Hemoglobin 32.3 % Concent Red Cell Distribution Width 18.8 % Platelet Count 87 TH/MM3 Mean Platelet Volume 7.5 FL Sodium Level 141 MEQ/L Potassium Level 4.4 MEQ/L Chloride Level 110 MEQ/L Carbon Dioxide Level 19.2 MEQ/L Anion Gap 12 MEQ/L Blood Urea Nitrogen 44 MG/DL Creatinine 2.49 MG/DL Estimat Glomerular Filtration 18 ML/MIN Rate Random Glucose 55 MG/DL Calcium Level 7.7 MG/DL Microbiology Microbiology 02/03/17 Stool Occult Blood (MELISSA) - Final, Complete HEMOCCULT NEGATIVE Physical Exam General General Appearance: Comfortable, Anxious, Malnourished Eyes Eye Exam: Pupils Reactive Ears & Nose Ears & Nose Exam: Nasal Mucosa Itmann Throat Throat Exam: Oral Mucosa Itmann & Moist Neck Neck Exam: Trachea Midline Pulmonary Resp Exam: Breath Sounds Equal, No Distress Cardiology CV Exam: Normal Sinus Rhythm, Good Perfusion Gastrointestinal/Abdomen GI Exam: Non-Tender, Bowel Sounds Present Musculoskeletal MS Exam: Normal Gait, Normal Tone Integumentary Skin Exam: Warm, Dry Extremeties Extremities Exam: No Edema Neurologic Neuro Exam: Awake, Speech Clear, Moving All Extremities Psychiatric Psych Exam: Appropriate Responses Assessment/Plan Assessment/Plan Problem List: Symptomatic anemia Heme positive stools AYESHA (acute kidney injury) Hypoglycemia Thrombocytopenia History of breast cancer, current CT of the abdomen shows widespread bone metastases Unusually large hiatal hernia, mass could not be ruled out Left hydronephrosis HTN (hypertension) Narcotic dependence Altered mental status Chronic pain ASHD (arteriosclerotic heart disease) assessment and Plan Oncology consulted Gastroenterology following Endoscopy Sunday Follow hemoglobin levels Keep hemoglobin above 7 Continue with Protonix Keep narcotics and minimum Hydration Follow renal function Avoid nephrotoxic agents Hold diuretics Resume fentanyl patches Plavix and Coreg Consult urology IV dextrose SCDs for DVT prophylaxis Protonix for GI prophylaxis Discussed with patient Discussed with nurse Discussed Condition with: Patient Av Souza MD Feb 03, 2017 15:04
[2017-02-03] MEDS: DEXTROSE 5%-LACTATED RING INJ 1,000 ML IV SCH (15:15)
[2017-02-03] MEDS: ONDANSETRON HCL 4 MG/2 ML VIAL IVP PRN (17:06)
[2017-02-03] MEDS: PANTOPRAZOLE SODIUM 40 MG VIAL IV PUSH SCH ×2 (23:52)
[2017-02-04] VITALS: BP 158/76; PULSE 69; RESP 19; TEMP 97.8; O2SAT 99
[2017-02-04] MEDS: DEXTROSE 5%-LACTATED RING INJ 1,000 ML IV SCH ×2 (02:14→10:05)
[2017-02-04 04:00] VITALS: BP 188/75; PULSE 72; RESP 18; TEMP 99.2; O2SAT 98
[2017-02-04] MEDS: ERYTHROMYCIN 0.5% OPTH OINT 3.5 GM TUBO LEFT EYE SCH ×3 (04:14→16:54)
[2017-02-04 06:26] LABS: HEMATOCRIT 23.9 % (35.0-46.0); MEAN CELL VOLUME 91.5 FL (80.0-100.0); MEAN CORPUSCULAR HEMOGLOBIN 30.9 PG (27.0-34.0); MEAN CORPUSCULAR HGB CONC 33.7 % (32.0-36.0); PLATELET COUNT 104 TH/MM3 (150-450); RED BLOOD COUNT 2.61 MIL/MM3 (4.00-5.30); RED CELL DISTRIBUTION WIDTH 18.6 % (11.6-17.2); REVIEW FLAG FINAL; WHITE BLOOD COUNT 2.8 TH/MM3 (4.0-11.0)
[2017-02-04 07:00] LABS: BICARBONATE 23.1 MEQ/L (21.0-32.0); POTASSIUM 4.2 MEQ/L (3.5-5.1)
[2017-02-04 07:50] VITALS: BP_SYST 121; BP_SYST 189; BP_DIAS 60; BP_DIAS 81; PULSE 68; PULSE 71; RESP 20; TEMP 96.2; TEMP 99.8; O2SAT 98
[2017-02-04] MEDS: SODIUM CHLORIDE 0.9% FLUSH 10 ML FLUSH IV FLUSH SCH ×2 (09:00→21:00)
[2017-02-04] MEDS: PANTOPRAZOLE SOD 40 MG DELAYED RELEASE TAB PO SCH (09:06)
[2017-02-04] MEDS: POTASSIUM CHLORIDE 10 MEQ CONTROLLED RELEASE TAB PO SCH (09:06)
[2017-02-04] MEDS: CARVEDILOL 6.25 MG TAB PO SCH ×2 (09:06→22:06)
[2017-02-04] MEDS: ALLOPURINOL 100 MG TAB PO SCH (09:06)
[2017-02-04] MEDS: PRAVASTATIN SOD 20 MG TAB PO SCH (09:06)
[2017-02-04] MEDS: CLOPIDOGREL 75 MG TAB PO SCH (09:06)
[2017-02-04] MEDS: LACTOBACILLUS ACIDOPHILUS TAB PO SCH ×2 (09:06→22:07)
--- NOTE | 2017-02-04 09:55 | PD.ONC.PN ---
Subjective Subjective Remarks Afebrile overnight. Patient resting. She complains of pain, " all over." She is somewhat confused. She talks about a surgery that is supposed to happen tomorrow and tells me she has some "hot spots" and has had an ablation. At times she speaks clearly, telling me her step daughter is her oncologist. Objective Data Date Time Temp Pulse Resp B/P Pulse Ox O2 Delivery O2 Flow Rate FiO2 02/04/17 04:00 99.2 72 18 188/75 98 02/04/17 00:00 97.8 69 19 158/76 99 02/03/17 20:00 98.1 71 18 190/82 100 02/03/17 16:00 97.8 65 20 157/67 95 02/03/17 12:00 97.6 61 20 130/61 95 02/03/17 10:48 94 21 02/04/17 02/04/17 02/04/17 07:00 15:00 23:00 Intake Total 240 ml Balance 240 ml Result Diagram: 02/04/17 0550 02/04/17 0550 Laboratory Results Laboratory Tests Test 02/04/17 05:50 White Blood Count 2.8 TH/MM3 Red Blood Count 2.61 MIL/MM3 Hemoglobin 8.1 GM/DL Hematocrit 23.9 % Mean Corpuscular Volume 91.5 FL Mean Corpuscular Hemoglobin 30.9 PG Mean Corpuscular Hemoglobin 33.7 % Concent Red Cell Distribution Width 18.6 % Platelet Count 104 TH/MM3 Mean Platelet Volume 8.1 FL Sodium Level 143 MEQ/L Potassium Level 4.2 MEQ/L Chloride Level 113 MEQ/L Carbon Dioxide Level 23.1 MEQ/L Anion Gap 7 MEQ/L Blood Urea Nitrogen 35 MG/DL Creatinine 2.36 MG/DL Estimat Glomerular Filtration 20 ML/MIN Rate Random Glucose 159 MG/DL Calcium Level 7.9 MG/DL Culture Results Microbiology Date/Time Procedure Status Source Growth 02/03/17 07:30 Stool Occult Blood (MELISSA) - Final Complete Stool Stool HEMOCCULT NEGATIVE Administered Medications Medications (Trade) Dose Ordered Sig/Loco Route PRN Reason Start Time Stop Time Status Last Admin Dose Admin Sodium Chloride (NS Flush) 2 ml BID IV FLUSH 02/02/17 09:00 02/02/17 20:04 Ondansetron HCl (Zofran Inj) 4 mg Q6H PRN IVP NAUSEA OR VOMITING 02/01/17 23:30 02/03/17 17:06 Pantoprazole Sodium (Protonix Inj) 40 mg Q24H IV PUSH 02/02/17 00:00 02/03/17 23:52 Allopurinol (Zyloprim) 100 mg DAILY PO 02/02/17 09:00 02/04/17 09:06 Carvedilol (Coreg) 6.25 mg Q12HR PO 02/02/17 09:00 02/04/17 09:06 Clopidogrel Bisulfate (Plavix) 75 mg DAILY PO 02/02/17 09:00 02/04/17 09:06 Erythromycin (Ilotycin 0.5% Opth Oint) 1 applic Q6HR LEFT EYE 02/02/17 12:00 02/03/17 17:53 Fentanyl (Duragesic 75 Mcg Patch.72 Hr) 1 patch Q72H T-DERMAL 02/02/17 10:00 02/02/17 20:03 Lactobacillus Acidophilus (Lactinex) 4 tab BID PO 02/02/17 10:00 02/04/17 09:06 Pantoprazole Sodium (Protonix) 40 mg DAILY PO 02/02/17 10:00 02/04/17 09:06 Potassium Chloride (KCl) 10 meq DAILY PO 02/02/17 10:00 02/04/17 09:06 Oxycodone HCl (Roxicodone) 20 mg Q6H PRN PO BREAKTHROUGH PAIN 02/02/17 09:45 02/04/17 09:06 Pravastatin Sodium 20 mg 20 mg DAILY PO 02/02/17 10:00 02/04/17 09:06 Dextrose/Lactated Ringer's (D5-Lr Inj) 1,000 ml @ 100 mls/hr Q10H IV 02/03/17 15:15 02/04/17 02:14 Objective Remarks GENERAL: Elderly female, lying curled up in a ball on her bed. SKIN: Warm and dry. port in place, site clean HEAD: Normocephalic. EYES: No injection or drainage. NECK: Supple, trachea midline. CARDIOVASCULAR: Regular rate and rhythm RESPIRATORY: Breath sounds equal bilaterally. No accessory muscle use. GASTROINTESTINAL: Abdomen soft, non-tender, nondistended. EXTREMITIES: No cyanosis NEUROLOGICAL: awake, somewhat confused. normal speech. Assessment/Plan Problem List: (1) HX: breast cancer Status: Acute Plan: --oncologist is step-daughter, Dr. Aguilar. --patient apparently on hormonal therapy outpatient --CT ab/pelvis showed widespread bony disease, possible hiatal hernia or mass, bilateral pleural effusions --on multiple pain medications (2) Symptomatic anemia Status: Acute Plan: --s/p pRBC infusion in ED --Hemoccult negative --transfuse as needed --receives Procrit outpatient --B12/folate WNL Assessment 81y/o female admitted with anemia, altered mental status. h/o CAD, breast cancer, renal insufficiency, GERD Anemia Rheumatoid arthritis, Fibromyalgia, Chronic back pain, Mastectomy for history of breast cancer Plan 1. monitor CBC 2. may need to obtain biopsy of one of the bony lesions for further characterization--i.e. whether this is consistent with her h/o HR+ cancer. will possibly obtain MRI to further assess Attending Statement The exam, history, and the medical decision-making described in the above note were completed with the assistance of the mid-level provider. I reviewed and agree with the findings presented. I attest that I had a [id number] encounter with the patient on the same day, and personally performed and documented my assessment and findings in the medical record. Hold endoscopy. no evidence of GI bleeding. Anemia due to CKD and recent progression of cancer CT chest to asses for metastatic disease Will consult IR for bone biopsy Patient needs to be placed back on her previous pain meds and slow tapering recommended. risk for withdrawal. She has been on high dose of narcotics for some time for back pain. d/w family. d/w Lary Ware Feb 04, 2017 09:55 Vamsi Hernandez MD Feb 04, 2017 22:43
[2017-02-04 11:50] VITALS: BP 145/64; PULSE 60; RESP 20; TEMP 99.2
--- NOTE | 2017-02-04 13:26 | HHI.GIFU ---
Subjective Remarks still have general body pain, not eating well and having abdominal pain Objective Vitals I&O Vital Signs Date Time Temp Pulse Resp B/P Pulse Ox O2 Delivery O2 Flow Rate FiO2 02/04/17 07:50 99.8 71 20 189/81 98 02/04/17 04:00 99.2 72 18 188/75 98 02/04/17 00:00 97.8 69 19 158/76 99 02/03/17 20:00 98.1 71 18 190/82 100 02/03/17 16:00 97.8 65 20 157/67 95 I/O 02/03/17 02/03/17 02/03/17 02/04/17 02/04/17 02/04/17 07:00 15:00 23:00 07:00 15:00 23:00 Intake Total 120 ml 240 ml 240 ml Output Total 401 ml Balance -281 ml 240 ml 240 ml Intake Oral 120 ml 240 ml 240 ml Output Urine Total 401 ml # Voids 2 2 2 # Bowel Movements 2 2 8 3 Laboratory Laboratory Tests Test 02/04/17 05:50 White Blood Count 2.8 Red Blood Count 2.61 Hemoglobin 8.1 Hematocrit 23.9 Mean Corpuscular Volume 91.5 Mean Corpuscular Hemoglobin 30.9 Mean Corpuscular Hemoglobin 33.7 Concent Red Cell Distribution Width 18.6 Platelet Count 104 Mean Platelet Volume 8.1 Sodium Level 143 Potassium Level 4.2 Chloride Level 113 Carbon Dioxide Level 23.1 Anion Gap 7 Blood Urea Nitrogen 35 Creatinine 2.36 Estimat Glomerular Filtration 20 Rate Random Glucose 159 Calcium Level 7.9 Date/Time Procedure Status Source Growth 02/03/17 07:30 Stool Occult Blood (MELISSA) - Final Complete Stool Stool HEMOCCULT NEGATIVE Physical Exam HEENT: normocephalic; atraumatic; no jaundice. CHEST: Chest is clear to auscultation and percussion. CARDIAC: Regular rate and rhythm with no murmur gallop or rubs. ABDOMEN: Soft, nondistended, severe tenderness to palpation; no hepatosplenomegaly; bowel sounds are present in all four quadrants. EXTREMITIES: No clubbing, cyanosis, or edema. SKIN: Normal; no rash; no jaundice. PATTERN SETTER: alert and oriented. Assessment and Plan Plan - Chronic anemia, but now symptomatic with weakness for the past few weeks, she does have chronic kidney disease, this could be anemia of chronic disease- Ct on (02/02/17) ---->Widespread bony metastatic disease. Concerning findings in the lung bases. Unusual appearing large hiatal hernia with associated mass not excluded. Left kidney hydronephrosis and proximal hydroureter. Small volume of nonspecific free pelvic fluid. Patient was sent to the emergency room by her industrial relations specialist, Dr. Linda Abbott for a blood transfusion and admission to the hospital. Patient reports abdominal pain. Her main issue is severe back pain. Patient reports that she has been eating like her normal self and does have an appetite. Our records indicates she had EGD/colonoscopy in 2010-----> Distal esophagus stricture, s/p dilatation, small hiatal hernia, gastritis, normal duodenum, normal colon, bx benign. Patient has hx of chronic anemia, her base line around 9. - History of mastectomy in the past, she is taking Procrit injections given by her industrial relations specialist - Widespread bony metastatic disease- Ct above, will consult oncology - HTN, CAD, CKD per attending [id number]. ct scan results reviewed with daughter, who asked me to talk to Dr. Aguilar, her oncologist, we discussed the results and she feels that the patient should have a bone Bx, she thinks the yield of EGD is low so we will hold off on EGD per her request and manage conservatively until a bx is done from lung or bone Plan: - LACIE - Ct concerning for metastatic disease, will consult oncology - hold off on EGD for now - Hemoccult was negative - Monitor hh - Transfuse as needed - Notify GI for active bleeding - Further recommendation to follow based on clinical course Livia Mercado MD Feb 04, 2017 13:26
[2017-02-04] MEDS: NIFEdipine 60 MG SUSTAINED RELEASE TAB PO SCH (14:01)
--- NOTE | 2017-02-04 14:19 | MB ---
cc: NIMESH BONILLA DATE OF CONSULTATION: 02/03/2017. REASON FOR CONSULTATION: Patient with a history of breast cancer, anemia, chronic kidney disease who presents today with declining performance status, weakness and worsening anemia. CHIEF COMPLAINT: Weakness and abdominal pain. HISTORY OF PRESENT ILLNESS: Ms. Aguilar is an 81-year-old female with a past medical history of breast cancer which was diagnosed several years ago. She has been on hormonal blockade therapy. She sees Dr. Aguilar at the [facility]. The patient also has a history of anemia which was thought to be secondary to chronic kidney disease. She has been receiving Procrit injections. She recently visited her oncologist and was found to be slightly more anemic. She was weak. She complained of abdominal pain. The patient was sent to the [facility] Emergency Room. On admission, the patient was found to have a white blood cell count of 3.8 and a hemoglobin of 8.3. Her platelet count was 130,000. She had a stool hemoccult on admission, which was negative. The patient continues to complain of abdominal pain and a CT of the abdomen and pelvis was obtained. The CT of the abdomen and pelvis showed widespread bony metastatic disease. There was a large hiatal hernia and associated mass could not be excluded. There was a left kidney hydronephrosis and proximal hydroureter. There are small bilateral pleural effusions. There are subcentimeter nodular densities in the septal posterolateral right lung base. The patient has not had any nose bleeds, gum bleeds, petechiae or bruising. She has not noticed any bright red blood per rectum or melena. She appears quite debilitated and weak. Her ECOG performance status is 3. I had spoken with Dr. Aguilar and discussed the results of the CT scan. Dr. Aguilar requested that we obtain a CT-guided biopsy of the bone lesions to confirm that this is breast cancer and that it is still hormone receptor positive. REVIEW OF SYSTEMS A comprehensive 14-point review of systems was completed which is negative except as described in the history of present illness. PAST MEDICAL HISTORY: 1. Breast cancer. 2. Anemia. 3. Chronic kidney disease. 4. Coronary artery disease status post CABG. 5. Hyperlipidemia. 6. Gastroesophageal reflux disease (GERD). 7. Rheumatoid arthritis. 8. Fibromyalgia. 9. Chronic back pain. 10. Mastectomy. PAST SURGICAL HISTORY: 1. Right-sided mastectomy. 2. CABG. 3. Stent placement. 4. Spinal surgery. MEDICATIONS: Home medications were reviewed. They are: 1. Torsemide 20 milligrams one tablet p.o. daily. 2. Nitroglycerin SL 0.4 milligrams sublingual as needed. 3. Diovan 40 milligrams one tablet p.o. daily. 4. 250 milligrams one tablet p.o. daily. 5. Simvastatin 10 milligrams p.o. daily. 6. Pantoprazole 40 milligrams p.o. daily. 7. Meclizine 25 milligrams p.o. three times a day PRN. 8. Floranex one tablet p.o. twice a day. 9. Allopurinol 100 milligrams p.o. daily. 10. Nucynta 100 milligram tablet p.o. three times a day PRN. 11. Losartan 40 milligrams p.o. daily. 12. Ondansetron . 13. Plavix 75 milligrams one tablet p.o. daily. 14. Oxycodone 20 milligrams p.o. q. 4-6 hours PRN. 15. Fentanyl patch 75 micrograms q. 72 hours. ALLERGIES: SHE IS ALLERGIC TO: 1. ALBERTO INHIBITORS. 2. ASPIRIN. 3. CIPRO. 4. STADOL. 5. SULFA DRUGS. 6. ULTRAM. 7. AMLODIPINE. FAMILY HISTORY: Family history is noncontributory to this admission. SOCIAL HISTORY: She lives with her grandson and [id number]. She does not smoke cigarettes. No history of alcohol abuse. PHYSICAL EXAMINATION: VITAL SIGNS: Blood pressure is 130/61, pulse is in the 60s, temperature is 97.6, respiratory rate 14, O2 sats are 97% on room air. GENERAL: Elderly frail lady who appears debilitated and chronically ill and in no apparent distress. HEAD, EYES, EARS, NOSE, THROAT: Pupils are equal, round and reactive to light. Extraocular muscles intact. No oral thrush. No oral lesions. NECK: The neck is supple. No jugular venous distention. No bruits. No lymphadenopathy. CARDIAC: S1, S2. Regular rate and rhythm. CHEST: Clear to auscultation bilaterally. ABDOMEN: Abdomen is diffusely tender. Bowel sounds are decreased. EXTREMITIES: Without any edema, erythema or cyanosis. SKIN: Without any petechiae, lesions or bruises. NEUROLOGIC: No focal deficit. PSYCHIATRIC: Mood and affect are appropriate. LABORATORY DATA: WBCs 3.8, hemoglobin 8.3, platelet count 130,000. Serum chemistries show sodium of 135, potassium 4.9, chloride 102, BUN 61, creatinine 3.2, calcium 8.3, total bilirubin is 0.5, albumin is 3.6. IMAGING STUDIES: Reviewed in the electronic medical record. ASSESSMENT AND PLAN: This is an 81-year-old female with a history of right-sided breast cancer status post mastectomy. This was a hormone receptor-positive breast cancer and she received hormone blockade therapy. She has chronic anemia of kidney disease and is receiving Procrit injections. She has a history of arthritis, fibromyalgia and chronic back pain. She presents to the emergency department with worsening performance status, generalized weakness, worsening anemia and abdominal pain. 1. Overall decline in status, abdominal pain. A CT of the abdomen and pelvis shows bony metastatic disease. There are also some concerning lesions in the bases of the lungs. This could be progressive breast cancer. I discussed this case with the patient's oncologist. She recommended that we obtain biopsy of the bony lesions to confirm this is breast cancer. The patient does have a very poor performance status. Her treatment options will be limited however she could benefit if this is metastatic breast cancer and it is hormone receptor-positive, she could benefit from oral hormonal blockade therapy. We will obtain a CT scan of the chest without contrast to complete staging. We will ask interventional radiology to obtain a CT-guided biopsy of the bony lesions. She has hydroureter. We will get urology opinion. 2. Anemia, which is normocytic. A hemoccult test is negative. This is in the setting of acute illness and history of chronic kidney disease and possibly worsening cancer. We will transfuse packed red blood cells for a hemoglobin of less than 7.5. Anemia studies are pending. 3. History of chronic back pain and now with metastatic bone lesions. Continue pain control. 4. Acute on chronic kidney disease likely prerenal. The creatinine has improved since her admission. Will continue to monitor. Thank you for allowing me to participate in the care of this patient. I will continue to follow this patient along. MD YAHAIRA Boykin/AMARILIS /1:31 PM /1:59 PM
[2017-02-04] MEDS: ONDANSETRON HCL 4 MG/2 ML VIAL IVP PRN ×2 (15:22→22:14)
[2017-02-04 15:50] VITALS: BP_SYST 121; BP_SYST 128; BP_DIAS 60; BP_DIAS 62; PULSE 63; PULSE 70; RESP 20; TEMP 96.9; TEMP 98; O2SAT 97; O2SAT 98
--- NOTE | 2017-02-04 16:14 | HHI.PR ---
Subjective Interval History Alert, verbal, complaining of back and abdominal pain, Review of Systems Constitutional Constitutional Remarks 10 systems reviewed and otherwise negative Vitals/Results Intake & Output 02/03/17 02/03/17 02/04/17 15:00 23:00 07:00 Intake Total 240 ml 240 ml Balance 240 ml 240 ml Intake Oral 240 ml 240 ml # Voids 2 2 2 # Bowel Movements 2 8 3 Vital Signs Vital Signs Date Time Temp Pulse Resp B/P Pulse Ox O2 Delivery O2 Flow Rate FiO2 02/04/17 11:50 99.2 60 20 145/64 02/04/17 07:50 99.8 71 20 189/81 98 02/04/17 04:00 99.2 72 18 188/75 98 02/04/17 00:00 97.8 69 19 158/76 99 02/03/17 20:00 98.1 71 18 190/82 100 CBC/BMP: 02/04/17 0550 02/04/17 0550 Lab Results Laboratory Tests Test 02/04/17 05:50 White Blood Count 2.8 TH/MM3 Red Blood Count 2.61 MIL/MM3 Hemoglobin 8.1 GM/DL Hematocrit 23.9 % Mean Corpuscular Volume 91.5 FL Mean Corpuscular Hemoglobin 30.9 PG Mean Corpuscular Hemoglobin 33.7 % Concent Red Cell Distribution Width 18.6 % Platelet Count 104 TH/MM3 Mean Platelet Volume 8.1 FL Sodium Level 143 MEQ/L Potassium Level 4.2 MEQ/L Chloride Level 113 MEQ/L Carbon Dioxide Level 23.1 MEQ/L Anion Gap 7 MEQ/L Blood Urea Nitrogen 35 MG/DL Creatinine 2.36 MG/DL Estimat Glomerular Filtration 20 ML/MIN Rate Random Glucose 159 MG/DL Calcium Level 7.9 MG/DL Physical Exam General General Appearance: Comfortable, Anxious, Malnourished Eyes Eye Exam: Pupils Reactive Ears & Nose Ears & Nose Exam: Nasal Mucosa [place] Throat Throat Exam: Oral Mucosa [place] & Moist Neck Neck Exam: Trachea Midline Pulmonary Resp Exam: Breath Sounds Equal, No Distress Cardiology CV Exam: Normal Sinus Rhythm, Good Perfusion Gastrointestinal/Abdomen GI Exam: Non-Tender, Bowel Sounds Present GI Remarks Mildly tender Musculoskeletal MS Exam: Normal Gait, Normal Tone Integumentary Skin Exam: Warm, Dry Extremeties Extremities Exam: No Edema Neurologic Neuro Exam: Awake, Speech Clear, Moving All Extremities Psychiatric Psych Exam: Appropriate Responses Assessment/Plan Assessment/Plan Problem List: Symptomatic anemia Heme positive stools AYESHA (acute kidney injury) Hypoglycemia Thrombocytopenia History of breast cancer, CT of the abdomen shows widespread bone metastases Unusually large hiatal hernia, mass could not be ruled out Left hydronephrosis HTN (hypertension) Narcotic dependence Altered mental status Chronic pain ASHD (arteriosclerotic heart disease) assessment and Plan Oncology and Gastroenterology following Bone biopsy at interventional radiology Sunday Follow hemoglobin levels Keep hemoglobin above 7 Continue with Protonix Pain control Hydration Follow renal function Avoid nephrotoxic agents Hold diuretics Hold Plavix Consult urology IV dextrose SCDs for DVT prophylaxis Protonix for GI prophylaxis Discussed with patient Discussed with the patient's family extensively in the hallway outside the room Discussed with nurse Av Souza MD Feb 04, 2017 16:14
[2017-02-04] MEDS: fentaNYL 75 MCG/HR PATCH T-DERMAL SCH (16:53)
[2017-02-04] MEDS: REMOVE OLD DURAGESIC (FENTANYL) PATCH T-DERMAL SCH (16:53)
--- NOTE | 2017-02-04 19:51 | MB ---
cc: JOSEPH PALACIOS MD DATE OF CONSULTATION: 02/04/2017. REASON FOR CONSULTATION: Left hydronephrosis. HISTORY OF PRESENT ILLNESS: The patient is an 80-year-old elderly female with a history of metastatic breast cancer who presented to the [facility] at the request of her procurement accountant, Dr. Linda Aguilar, due to anemia. During workup, she was found to have an elevated creatinine of 3.2. She had a CT of the abdomen and pelvis without contrast done which showed a left proximal hydronephrosis with nondilated ureter. Urology was consulted for this left hydro. Over the course of the last couple of days, her creatinine has significantly improved down to 2.36. The patient is not the best historian and has slightly altered mental status; however, she does complain of diffuse pain all over including her back and abdomen. However, her pain medications have been changed since she has been here. She has been voiding on her own. She denies any voiding complaints. She denies nausea or vomiting, fever or chills or blood in her urine. Denies a history of kidney stones but has had urinary tract infections in the past. PAST MEDICAL HISTORY: 1. Hypertension. 2. Coronary artery disease. 3. Chronic kidney disease. 4. Hyperlipidemia. 5. Gastroesophageal reflux disease (GERD). 6. Anemia. 7. Rheumatoid arthritis. 8. Fibromyalgia. 9. Chronic back pain. 10. Breast cancer. 11. Cellulitis of the left hand. PAST SURGICAL HISTORY: 1. History of CABG. 2. Right mastectomy. 3. Spinal surgery. HOME MEDICATIONS: 1. Furosemide 20 milligrams p.o. daily. 2. Diovan 40 milligrams p.o. daily. 3. Simvastatin 10 milligrams p.o. daily. 4. Meclizine 25 milligrams p.o. three times a day PRN. 5. Allopurinol 100 milligrams p.o. daily. 6. Nucynta 150 milligrams p.o. three times a day. 7. Valsartan milligrams p.o. daily. 8. Plavix 75 milligrams p.o. daily. 9. Fentanyl patch 75 micrograms q. 72 hours. ALLERGIES: 1. ASPIRIN. 2. CIPRO. 3. SULFA. 4. ULTRAM. 5. AMLODIPINE. FAMILY HISTORY: Family history negative for urolithiasis. Negative for urinary malignancies. SOCIAL HISTORY: Denies smoking, alcohol or illicit drugs. PHYSICAL EXAMINATION: VITAL SIGNS: Temperature 98, pulse 63, respiratory rate 20, blood pressure 120/62, saturation 97% on room air. GENERAL: In general, she is awake and alert and oriented. She does not appear to be in apparent distress. Pleasant and cooperative. Appears her stated age. HEAD, EYES, EARS, NOSE, THROAT: Head is normocephalic and atraumatic. No scleral icterus. Extraocular muscles intact.. SKIN: No ulcers or rashes. NECK: The neck is supple. Trachea is midline. LUNGS: Clear to auscultation bilaterally. HEART: Regular rhythm. ABDOMEN: The abdomen is soft, nontender and nondistended. Positive bowel sounds. GENITOURINARY: No costovertebral angle tenderness bilaterally. PELVIC: Exam not indicated. EXTREMITIES: Nontender. No cyanosis, clubbing or edema. MUSCULOSKELETAL: Full range of motion of all four extremities. Nontender. Strength 5/5 in all four extremities. PSYCHIATRIC: Flat affect. LABORATORY STUDIES: White count 2.8, hemoglobin 8.1, hematocrit 23.9, platelet count 104,000. Sodium 143, potassium 4.2, chloride 113, bicarb 23.1, BUN 35, creatinine 2.36, calcium 7.9. Her urine was negative. IMAGING STUDIES: CT of the abdomen pelvis images were reviewed. Agree with the radiologist's report. The patient has left proximal hydronephrosis with nondilated ureter. No obvious obstruction is noted. ASSESSMENT: The patient is an 81-year-old female with metastatic breast cancer found to have incidental left hydronephrosis and acute on chronic renal failure PLAN: Recommend conservative management of her left hydronephrosis at this time as her creatinine is improving and she is not complaining of any left flank pain. If her clinical condition deteriorates, and her creatinine worsens, then could consider stent versus nephrostomy tube to unblock that kidney if necessary. She likely has some extrinsic compression from her metastatic breast cancer. Thank you for this consult. Joseph Palacios MD EMF/AMARILIS /6:10 PM /7:40 PM
[2017-02-04 20:00] VITALS: BP 181/73; PULSE 73; RESP 18; TEMP 99.4; O2SAT 98
[2017-02-04] MEDS: TAPENTADOL 150 MG PO SCH (21:00)
[2017-02-04] MEDS ORDERED: TAPENTADOL 150 MG PO SCH (21:00)
[2017-02-05] VITALS: BP 158/74; PULSE 69; RESP 19; TEMP 98; O2SAT 99
[2017-02-05] MEDS: PANTOPRAZOLE SODIUM 40 MG VIAL IV PUSH SCH (00:38)
[2017-02-05] MEDS: ERYTHROMYCIN 0.5% OPTH OINT 3.5 GM TUBO LEFT EYE SCH ×4 (00:38→18:07)
[2017-02-05] MEDS: DEXTROSE 5%-LACTATED RING INJ 1,000 ML IV SCH (03:50)
[2017-02-05 04:00] VITALS: BP 111/56; PULSE 65; RESP 18; TEMP 97; O2SAT 98
[2017-02-05 06:03] LABS: INTERNATIONAL NORMALIZED RATIO 1.1 RATIO; PROTHROMBIN TIME - PATIENT 12.2 SEC (9.8-11.6)
[2017-02-05 06:06] LABS: TRANSFERRIN IRON PROFILE 100 MG/DL (200-360)
[2017-02-05 08:00] VITALS: BP 117/56; PULSE 62; RESP 20; TEMP 98.8; O2SAT 94
[2017-02-05] MEDS: LACTOBACILLUS ACIDOPHILUS TAB PO SCH ×2 (09:00→21:55)
[2017-02-05] MEDS: TERBINAFINE 250 MG TAB PO SCH (09:00)
[2017-02-05] MEDS: SODIUM CHLORIDE 0.9% FLUSH 10 ML FLUSH IV FLUSH SCH ×2 (09:00→21:00)
[2017-02-05] MEDS: TAPENTADOL 150 MG PO SCH ×2 (09:06→21:42)
[2017-02-05] MEDS: PANTOPRAZOLE SOD 40 MG DELAYED RELEASE TAB PO SCH (09:07)
[2017-02-05] MEDS: CLOPIDOGREL 75 MG TAB PO SCH (09:07)
[2017-02-05] MEDS: ALLOPURINOL 100 MG TAB PO SCH (09:07)
[2017-02-05] MEDS: NIFEdipine 60 MG SUSTAINED RELEASE TAB PO SCH (09:07)
[2017-02-05] MEDS: PRAVASTATIN SOD 20 MG TAB PO SCH (09:07)
[2017-02-05] MEDS: CARVEDILOL 6.25 MG TAB PO SCH ×2 (09:08→21:43)
[2017-02-05] MEDS: POTASSIUM CHLORIDE 10 MEQ CONTROLLED RELEASE TAB PO SCH (09:08)
[2017-02-05] MEDS: IRON SUCROSE INJ 200 MG in SODIUM CHLORIDE 0.9% INJ 100 ML IV SCH (10:00)
--- NOTE | 2017-02-05 10:03 | HHI.PR ---
Subjective Remarks Awakes to voice, oriented to hospital, knows year, aware of plans for today Patient endorses that she is aware of diagnosis, and we'll pursue treatment if recommended She's deferring decision making to Dr. Aguilar who is her stepdaughter Complaints of diffuse back pain No chest pain No shortness of breath refusing to eat unless family present Overnight, pain somewhat improved Objective Objective Results - Vital Signs Date Time Temp Pulse Resp B/P Pulse Ox O2 Delivery O2 Flow Rate FiO2 02/05/17 08:00 98.8 62 20 117/56 94 02/05/17 05:57 16 02/05/17 04:00 97.0 65 18 111/56 98 02/05/17 00:00 98.0 69 19 158/74 99 02/04/17 20:00 99.4 73 18 181/73 98 02/04/17 15:50 98.0 63 20 128/62 97 02/04/17 11:50 99.2 60 20 145/64 I/O 02/04/17 02/04/17 02/04/17 02/05/17 02/05/17 02/05/17 07:00 15:00 23:00 07:00 15:00 23:00 Intake Total 240 ml 60 ml 240 ml Output Total 250 ml Balance 240 ml 60 ml -10 ml Intake Oral 240 ml 60 ml 240 ml Output Urine Total 250 ml # Voids 2 1 3 # Bowel Movements 3 2 Result Diagram: 02/04/17 0550 02/04/17 0550 Other Results Laboratory Tests Test 02/05/17 04:00 Prothrombin Time 12.2 Prothromb Time International 1.1 Ratio Iron Level 22 Total Iron Binding Capacity 140 Percent Iron Saturation 15.7 Transferrin 100 Vitamin B12 Level 568 Date/Time Procedure Status Source Growth 02/03/17 07:30 Stool Occult Blood (MELISSA) - Final Complete Stool Stool HEMOCCULT NEGATIVE ROS General: Weakness Neuro/MS: Other (back pain) Physical Exam Physical Exam GENERAL: This is a well-nourished, well-developed patient, in no apparent distress. SKIN: No rashes, ecchymoses or lesions. Cool and dry. Pale HEAD: Atraumatic. Normocephalic. No temporal or scalp tenderness. EYES: Pupils equal round and reactive. Extraocular motions intact. No scleral icterus. No injection or drainage. ENT: Nose without bleeding, purulent drainage or septal hematoma. Throat without erythema, tonsillar hypertrophy or exudate. Uvula midline. Airway patent. NECK: Trachea midline. No JVD or lymphadenopathy. Supple, nontender, no meningeal signs. CARDIOVASCULAR: Regular rate and rhythm without murmurs, gallops, or rubs. RESPIRATORY: Clear to auscultation. Breath sounds equal bilaterally. No wheezes , rales, or rhonchi. GASTROINTESTINAL: Abdomen soft, non-tender, nondistended. No hepato-splenomegaly , or palpable masses. No guarding. MUSCULOSKELETAL: Extremities without clubbing, cyanosis, or edema. No joint tenderness, effusion, or edema noted. No calf tenderness. Negative Homans sign bilaterally. NEUROLOGICAL: Awakes to voice, oriented to self, situation, year. Less confused. No focal deficits. Urinary Catheter: No Vascular Central Line Catheter: No A/P Diagnosis: (1) Symptomatic anemia (2) AYESHA (acute kidney injury) (3) HTN (hypertension) (4) Narcotic dependence (5) Altered mental status (6) Chronic pain (7) ASHD (arteriosclerotic heart disease) (8) HX: breast cancer (9) Lung nodule (10) Bone metastasis Assessment and Plan 81-year-old female sent from hematology and primary care physician's office for weakness, symptomatic anemia. Heme-positive stools. Had been receiving Procrit injections per hematology. Admitted initiallyy for possible GI bleed. CT abdomen done bilat pleural effusions, widespread bony metastatic disease, unusual appearing large hiatal hernia with associated mass, left kidney hydronephrosis Has Hx breast cancer. -GI initially consulted, plan was to do EGD now on hold based on CT abdomen findings -Pt's oncologist recommended bone bx. -Oncology input appreciated, Dr. Hernandez evaluated. Plan is for CT-guided bone biopsy today. Anemia, heme pos. stools in ED -GI work up on hold for now -Received 1 unit of packed cells, H&H stable -Stools OB x 1 negative Low iron studies, on IV sucrose Altered mental status, possibly secondary to narcotic dependence, anemia. Improved some, although still has periods of confusion -continue with narcotics, monitor closely. -will need pain management consideration considering recent dx and use of chronic narcotics. Acute on chronic kidney disease, now a stage IV. CT findings of hydronephrosis. Creat improving, making urine -evaluated per Dr. Gonzalez, no need for intervention at this time. Hydronephrosis likely due to extrinsic compression from tumor. If worsens, may need stent and nephro tube -creat improving -Continue with cautious hydration Avoid nephrotoxic agents Avoid NSAIDs Hold diuretics and ALBERTO inhibitor Chronic pain and narcotic dependence -pain management Coronary artery disease, prior history of CABG Continue with home medications, Coreg -Plavix on hold for bx SCDs for DVT prophylaxis Protonix for GI prophylaxis Pt. frail, refusing to eat unless family present. Will order Ensure She indicates she would like a little more time with family and wants to be treated. However, she defers decision making to Dr. Aguilar. Has a son whom she wants to keep involved as well. Poss. palliative care consult after work up done. Labs in am Condition guarded. D/W RN D/W Dr. Souza D/W pt This patient was seen by myself and Dr. Souza, this note is written on his behalf Problem Qualifiers (1) HTN (hypertension): Qualified Code: I10 - Essential hypertension (2) Altered mental status: Qualified Code: R41.0 - Disorientation (3) Chronic pain: Qualified Code: G89.4 - Chronic pain syndrome Arabella Green Feb 05, 2017 10:03
--- NOTE | 2017-02-05 11:22 | RADRPT ---
EXAM DATE/TIME: 02/05/2017 09:53 [facility] COMPARISON: CT THORAX W/O CONTRAST, April 05, 2015, 12:06. CT ABDOMEN & PELVIS W/O CONTRAST, February 02, 2017, 19:1 3. INDICATIONS : Metastatic cancer RADIATION DOSE: 3.32 CTDIvol (mGy) MEDICAL HISTORY : Metastatic, breast. Renal failure, chronic. Hypertension. Cardiac SURGICAL HISTORY : Cholecystectomy. Mastectomy, right. ENCOUNTER: Subsequent ACUITY: 1 day PAIN SCALE: 3/10 LOCATION: TECHNIQUE: Volumetric scanning of the chest was performed. Using automated exposure control and adjustment of t he mA and/or kV according to patient size, radiation dose was kept as low as reasonably achievable to obtain optimal diagnostic quality images. FINDINGS: Multiple sclerotic bony metastatic disease is present involving numerous vertebrae sternum, bila teral clavicle and shoulders. Small right pleural effusion is present with moderate left pleural effu steven. Large hiatal hernia is seen. Coronary artery calcifications are seen typically seen with CAD an d need to be evaluated clinically. There are atherosclerotic calcifications involving the visualized aorta chronic in nature.There is evidence for prior median sternotomy. Approximate 1.6 cm lacunes les ion is present in the left hepatic lobe possibly a cyst. There is airspace consolidation in the left upper lobe with scattered areas of parenchymal infiltrates in bilateral lower lobes and right middle lobe. There is also an approximate 1.1 cm right middle lobe nodule in the lateral segment. There are partially calcified parenchymal changes in the left lung in the region of the major fissure. Spinal s timulator wire is present with tip at level of T9. CONCLUSION: 1. Widespread bony metastatic disease not present on the prior study from 2014. 2. Right middle lobe nodule suspicious for metastatic disease. 3. Bilateral pleural effusions. 4. Parenchymal changes in the left lung adjacent to major fissure partially calcified not present on the prior study of uncertain etiology could be due to posttreatment changes. There is also consolidat ion left upper lobe with scattered bilateral parenchymal infiltrates. 5. Left hepatic cyst and large hiatal hernia. Rose Belle MD on February 05, 2017 at 11:14 Board Certified Radiologist. This report was verified electronically.
[2017-02-05 12:00] VITALS: BP 128/58; PULSE 63; RESP 20; TEMP 96.6; O2SAT 95
--- NOTE | 2017-02-05 12:00 | PD.ONC.PN ---
Subjective Subjective Remarks Afebrile overnight. Patient continuing to complain of pain all over. The nurse spoke with interventional radiology and they will not be able to do her bone biopsy until her plavix has been on hold for five days. Objective Data Date Time Temp Pulse Resp B/P Pulse Ox O2 Delivery O2 Flow Rate FiO2 02/05/17 08:00 98.8 62 20 117/56 94 02/05/17 05:57 16 02/05/17 04:00 97.0 65 18 111/56 98 02/05/17 00:00 98.0 69 19 158/74 99 02/04/17 20:00 99.4 73 18 181/73 98 02/04/17 15:50 98.0 63 20 128/62 97 Result Diagram: 02/04/17 0550 02/04/17 0550 Laboratory Results Laboratory Tests Test 02/05/17 04:00 Prothrombin Time 12.2 SEC Prothromb Time International 1.1 RATIO Ratio Iron Level 22 MCG/DL Total Iron Binding Capacity 140 MCG/DL Percent Iron Saturation 15.7 % Transferrin 100 MG/DL Vitamin B12 Level 568 PG/ML Culture Results Microbiology Date/Time Procedure Status Source Growth 02/03/17 07:30 Stool Occult Blood (MELISSA) - Final Complete Stool Stool HEMOCCULT NEGATIVE Administered Medications Medications (Trade) Dose Ordered Sig/Loco Route PRN Reason Start Time Stop Time Status Last Admin Dose Admin Sodium Chloride (NS Flush) 2 ml BID IV FLUSH 02/02/17 09:00 02/04/17 21:00 Ondansetron HCl (Zofran Inj) 4 mg Q6H PRN IVP NAUSEA OR VOMITING 02/01/17 23:30 02/04/17 22:14 Pantoprazole Sodium (Protonix Inj) 40 mg Q24H IV PUSH 02/02/17 00:00 02/05/17 00:38 Allopurinol (Zyloprim) 100 mg DAILY PO 02/02/17 09:00 02/05/17 09:07 Carvedilol (Coreg) 6.25 mg Q12HR PO 02/02/17 09:00 02/05/17 09:08 Clopidogrel Bisulfate (Plavix) 75 mg DAILY PO 02/02/17 09:00 02/05/17 09:07 Erythromycin (Ilotycin 0.5% Opth Oint) 1 applic Q6HR LEFT EYE 02/02/17 12:00 02/05/17 03:49 Lactobacillus Acidophilus (Lactinex) 4 tab BID PO 02/02/17 10:00 02/05/17 09:00 Pantoprazole Sodium (Protonix) 40 mg DAILY PO 02/02/17 10:00 02/05/17 09:07 Potassium Chloride (KCl) 10 meq DAILY PO 02/02/17 10:00 02/05/17 09:08 Pravastatin Sodium 20 mg 20 mg DAILY PO 02/02/17 10:00 02/05/17 09:07 Dextrose/Lactated Ringer's (D5-Lr Inj) 1,000 ml @ 50 mls/hr Q20H IV 02/03/17 15:15 02/05/17 03:50 Nifedipine (Procardia Xl) 60 mg DAILY PO 02/04/17 13:30 02/05/17 09:07 Fentanyl (Duragesic 75 Mcg Patch.72 Hr) 2 patch Q72H T-DERMAL 02/04/17 17:00 02/04/17 16:53 Oxycodone HCl (Roxicodone) 20 mg Q6H PO 02/04/17 22:00 02/05/17 09:07 Miscellaneous Information 1 Q72H T-DERMAL 02/04/17 17:00 02/04/17 16:53 Patient Own Medication PT OWN MED: NUCY... BID PO 02/04/17 21:00 02/05/17 09:06 Iron Sucrose/ Sodium Chloride (Venofer Inj/NS Inj) 110 ml @ 110 mls/hr DAILY IV 02/05/17 10:00 02/07/17 09:59 02/05/17 10:00 Objective Remarks GENERAL: Elderly female, standing in room, complaining of pain. SKIN: Warm and dry. port in place, site clean HEAD: Normocephalic. EYES: No injection or drainage. NECK: Supple, trachea midline. CARDIOVASCULAR: Regular rate and rhythm RESPIRATORY: Breath sounds equal bilaterally. No accessory muscle use. GASTROINTESTINAL: Abdomen soft, non-tender, nondistended. EXTREMITIES: No cyanosis NEUROLOGICAL: awake, able to move extremities. normal speech Assessment/Plan Problem List: (1) HX: breast cancer Status: Acute Plan: --oncologist is step-daughter, Dr. Aguilar. --patient apparently on hormonal therapy outpatient --CT ab/pelvis showed widespread bony disease, possible hiatal hernia or mass, bilateral pleural effusions --on multiple pain medications (2) Symptomatic anemia Status: Acute Plan: --s/p pRBC infusion in ED --Hemoccult negative --transfuse as needed --receives Procrit outpatient --B12/folate WNL Assessment 81y/o female admitted with anemia, altered mental status. h/o CAD, breast cancer, renal insufficiency, GERD Anemia Rheumatoid arthritis, Fibromyalgia, Chronic back pain, Mastectomy for history of breast cancer Plan 1. bone biopsy ordered in IR--they will not be able to do the bone biopsy until the plavix has been held for five days. I have placed the Plavix on hold today. Therefore Monday 02/12 would be the first day they would be able to perform this biopsy. The patient does not need to wait in the hospital. This biopsy could be performed outpatient. 2. continue pain medications 3. monitor CBC Attending Statement The exam, history, and the medical decision-making described in the above note were completed with the assistance of the mid-level provider. I reviewed and agree with the findings presented. I attest that I had a [id number] encounter with the patient on the same day, and personally performed and documented my assessment and findings in the medical record. If remains in the hospital due to other issues then biopsy can be completed on --needs to be off plavix for 5 days. Otherwise biopsy outpatient. iron deficient--iron sucrose ordered. EGD in AM continue supportive care--pain control d/w Lary Ware Feb 05, 2017 12:00 Vamsi Hernandez MD Feb 05, 2017 22:56
--- NOTE | 2017-02-05 13:24 | HHI.FF ---
Face to Face Verification Diagnosis: (1) Bone metastasis (2) Lung nodule (3) HX: breast cancer (4) Chronic pain (5) Altered mental status (6) Narcotic dependence (7) Symptomatic anemia Physical Therapy Order: Evaluate and Treat Home Health Nursing Order: Medical education Nursing assessment with vital signs I have seen patient Tiffany Aguilar on 02/05/17. My clinical findings support the need for the requested home health care services because: Deconditioned w/ increased weakness Limited ability to care for self Impaired cognition/judgement I certify that my clinical findings support that this patient is homebound because: Impaired cognitive ability/safety Unsteady gait/balance Unsafe to leave home unassisted Need for psychosocial assistance Arabella Green [facility] Feb 05, 2017 13:24
[2017-02-05 13:48] LABS: AUTOMATED NEUTROPHIL # 3.9 TH/MM3 (1.8-7.7); BASOPHIL % 0.2 % (0.0-2.0); EOSINOPHIL # 0.2 TH/MM3 (0-0.4); EOSINOPHIL % 3.3 % (0.0-4.0); HEMO FLAGS AUTO DIFF; LYMPH % 18.8 % (9.0-44.0); MEAN CELL VOLUME 91.8 FL (80.0-100.0); MEAN CORPUSCULAR HEMOGLOBIN 30.9 PG (27.0-34.0); MEAN CORPUSCULAR HGB CONC 33.7 % (32.0-36.0); MONO % 3.9 % (0.0-8.0); NEUT % 73.8 % (16.0-70.0); PLATELET COUNT 131 TH/MM3 (150-450); RED BLOOD COUNT 2.94 MIL/MM3 (4.00-5.30); RED CELL DISTRIBUTION WIDTH 19.3 % (11.6-17.2); WHITE BLOOD COUNT 5.2 TH/MM3 (4.0-11.0)
[2017-02-05 14:25] LABS: EOSINOPHILS 2 % (0-4); HYPERSEGMENTED POLYS 1+ (NORMAL); KERATOCYTES OCC (NORMAL); NEUTROPHIL # MANUAL DIFF 3.9 TH/MM3 (1.8-7.7); OVALOCYTES 1+ (NORMAL); POLYS (SEG NEUTROPHILS) 75 % (16-70); WBC DIFF SAMPLE 100
[2017-02-05 14:26] LABS: PLATELET ESTIMATE SMEAR LOW (NORMAL); PLATELET MORPHOLOGY NORMAL (NORMAL); SCAN/DIFF FINAL DIFF MANUAL
[2017-02-05 16:00] VITALS: BP 137/65; PULSE 73; RESP 20; TEMP 98.1; O2SAT 94
--- NOTE | 2017-02-05 16:16 | HHI.GIFU ---
Subjective Remarks Resting in bed in no distress. IR unable to perform bone biopsy until patient has been off plavix x 5 days. Plan was for possible d/c today vs. tomorrow and bone biopsy as outpatient. D/W patient EGD inpatient vs. considering after bone biopsy (given that HH is stable and hemoccult negative). She reports that she is having significant heartburn and nausea and vomited earlier and would like to have as inpatient. Objective Vitals I&O Vital Signs Date Time Temp Pulse Resp B/P Pulse Ox O2 Delivery O2 Flow Rate FiO2 02/05/17 12:00 96.6 63 20 128/58 95 02/05/17 08:00 98.8 62 20 117/56 94 02/05/17 05:57 16 02/05/17 04:00 97.0 65 18 111/56 98 02/05/17 00:00 98.0 69 19 158/74 99 02/04/17 20:00 99.4 73 18 181/73 98 I/O 02/04/17 02/04/17 02/04/17 02/05/17 02/05/17 02/05/17 07:00 15:00 23:00 07:00 15:00 23:00 Intake Total 240 ml 60 ml 240 ml Output Total 250 ml Balance 240 ml 60 ml -10 ml Intake Oral 240 ml 60 ml 240 ml Output Urine Total 250 ml # Voids 2 1 3 4 # Bowel Movements 3 2 Laboratory Laboratory Tests Test 02/05/17 02/05/17 04:00 12:00 Prothrombin Time 12.2 Prothromb Time International 1.1 Ratio Iron Level 22 Total Iron Binding Capacity 140 Percent Iron Saturation 15.7 Transferrin 100 Vitamin B12 Level 568 White Blood Count 5.2 Red Blood Count 2.94 Hemoglobin 9.1 Hematocrit 27.0 Mean Corpuscular Volume 91.8 Mean Corpuscular Hemoglobin 30.9 Mean Corpuscular Hemoglobin 33.7 Concent Red Cell Distribution Width 19.3 Platelet Count 131 Mean Platelet Volume 8.5 Neutrophils (%) (Auto) 73.8 Lymphocytes (%) (Auto) 18.8 Monocytes (%) (Auto) 3.9 Eosinophils (%) (Auto) 3.3 Basophils (%) (Auto) 0.2 Neutrophils # (Auto) 3.9 Lymphocytes # (Auto) 1.0 Monocytes # (Auto) 0.2 Eosinophils # (Auto) 0.2 Basophils # (Auto) 0.0 CBC Comment AUTO DIFF Differential Total Cells 100 Counted Neutrophils % (Manual) 75 Lymphocytes % 20 Monocytes % 3 Eosinophils % 2 Neutrophils # (Manual) 3.9 Differential Comment FINAL DIFF MANUAL Hypersegmented Polys 1+ Platelet Estimate LOW Platelet Morphology Comment NORMAL Ovalocytes 1+ Keratocytes OCC Date/Time Procedure Status Source Growth 02/03/17 07:30 Stool Occult Blood (MELISSA) - Final Complete Stool Stool HEMOCCULT NEGATIVE Imaging Last Impressions Chest CT 02/05/17 0000 Signed Impressions: Service Date/Time: Sunday, February 05, 2017 09:53 - CONCLUSION: 1. Widespread bony metastatic disease not present on the prior study from 2014. 2. Right middle lobe nodule suspicious for metastatic disease. 3. Bilateral pleural effusions. 4. Parenchymal changes in the left lung adjacent to major fissure partially calcified not present on the prior study of uncertain etiology could be due to posttreatment changes. There is also consolidation left upper lobe with scattered bilateral parenchymal infiltrates. 5. Left hepatic cyst and large hiatal hernia. Rose Belle MD Abdomen/Pelvis CT 02/02/17 0000 Signed Impressions: Service Date/Time: Thursday, February 02, 2017 19:13 - CONCLUSION: Widespread bony metastatic disease. Concerning findings in the lung bases. Unusual appearing large hiatal hernia with associated mass not excluded. Left kidney hydronephrosis and proximal hydroureter. Small volume of nonspecific free pelvic fluid. West Martin MD Physical Exam HEENT: Normocephalic; atraumatic; no jaundice. CHEST: CTA CARDIAC: RRR ABDOMEN: Soft, nondistended, mild diffuse tenderness; no hepatosplenomegaly; bowel sounds are present in all four quadrants. EXTREMITIES: No clubbing, cyanosis, or edema. SKIN: Normal; no rash; no jaundice. IRRIGATION FOREMAN: alert and oriented. Assessment and Plan Plan ASSESSMENT: - Chronic anemia, but now symptomatic with weakness for the past few weeks, she does have chronic kidney disease, this could be anemia of chronic disease or related to her widespread metastatic disease. CT on () ---->Widespread bony metastatic disease. Concerning findings in the lung bases. Unusual appearing large hiatal hernia with associated mass not excluded. Left kidney hydronephrosis and proximal hydroureter. Small volume of nonspecific free pelvic fluid. She had EGD/ colonoscopy in 2010-----> Distal esophagus stricture, s/p dilatation, small hiatal hernia, gastritis, normal duodenum, normal colon, bx benign. Patient has hx of chronic anemia, her base line around 9. The plan was to wait for bone biopsy and consider EGD after that. However, IR will not be able to perform bone biopsy until she has been off her plavix x 5 days and therefore the plan is for her to go to rehab and then have bone biopsy done as outpatient. D/W patient EGD prior to d/c vs. waiting and considering this after bone biopsy. She states she is having significant nausea/reflux and vomited earlier today and would like this done here prior to d/c. Will schedule for tomorrow am. PPI. She gets procrit as outaptient. - History of mastectomy in the past - Widespread bony metastatic disease- Ct above, oncology following. Plan is for bone biopsy once off plavix x 5 days. - HTN, CAD, CKD per attending Plan: - Plan for EGD in am (pt requesting for nausea/reflux) - Obtain consents - NPO after MN - PPI - Monitor hh - Transfuse as needed - Notify GI for active bleeding - Further recommendation to follow based on clinical course - Pt seen and examined by Dr. Mosley and myself and this note is written on her behalf Darlene Wood Feb 05, 2017 16:16
[2017-02-05] MEDS ORDERED: PROMETHAZINE HCL 25 MG TAB PO PRN ×2 (18:00→18:45)
[2017-02-05 20:00] VITALS: BP 142/65; PULSE 74; RESP 17; TEMP 97.7; O2SAT 95
[2017-02-06] VITALS: BP 116/60; PULSE 69; RESP 16; TEMP 99.2; O2SAT 93
[2017-02-06] MEDS: ERYTHROMYCIN 0.5% OPTH OINT 3.5 GM TUBO LEFT EYE SCH ×4 (00:13→18:00)
[2017-02-06] MEDS: PANTOPRAZOLE SODIUM 40 MG VIAL IV PUSH SCH (00:13)
[2017-02-06] MEDS: DEXTROSE 5%-LACTATED RING INJ 1,000 ML IV SCH (02:06)
[2017-02-06 04:00] VITALS: BP 140/64; PULSE 63; RESP 18; TEMP 98.3; O2SAT 94
[2017-02-06 05:40] LABS: HEMATOCRIT 24.5 % (35.0-46.0); MEAN CELL VOLUME 92.2 FL (80.0-100.0); MEAN CORPUSCULAR HEMOGLOBIN 30.6 PG (27.0-34.0); MEAN CORPUSCULAR HGB CONC 33.2 % (32.0-36.0); PLATELET COUNT 127 TH/MM3 (150-450); RED BLOOD COUNT 2.65 MIL/MM3 (4.00-5.30); REVIEW FLAG FINAL; WHITE BLOOD COUNT 3.6 TH/MM3 (4.0-11.0)
[2017-02-06 05:59] LABS: BICARBONATE 22.9 MEQ/L (21.0-32.0); POTASSIUM 4.5 MEQ/L (3.5-5.1)
[2017-02-06] MEDS ORDERED: diphenhydrAMINE HCL 25 MG CAP PO PRN (08:15)
[2017-02-06] MEDS ORDERED: SODIUM CHLOR 0.9% 250 ML INJ 250 ML IV ONE (08:15)
[2017-02-06] MEDS ORDERED: ACETAMINOPHEN 325 MG TAB PO PRN (08:15)
[2017-02-06] MEDS: IRON SUCROSE INJ 200 MG in SODIUM CHLORIDE 0.9% INJ 100 ML IV SCH (09:00)
[2017-02-06] MEDS: LACTOBACILLUS ACIDOPHILUS TAB PO SCH ×2 (09:00→21:04)
[2017-02-06] MEDS: POTASSIUM CHLORIDE 10 MEQ CONTROLLED RELEASE TAB PO SCH (09:00)
[2017-02-06] MEDS: SODIUM CHLORIDE 0.9% FLUSH 10 ML FLUSH IV FLUSH SCH ×2 (09:00→21:05)
--- NOTE | 2017-02-06 09:52 | RADRPT ---
EXAM DATE/TIME: 02/05/2017 06:00 [place] COMPARISON: No previous studies available for comparison. INDICATIONS : Pelvic lesion. FINDINGS: The patient was sent for CT-guided bone biopsy, but was noted to be on Plavix. Therefore, the biopsy will be rescheduled once the patient's coagulation status is corrected. CONCLUSION: Bone biopsy will be rescheduled once the patient's coagulation status is corrected. Burton aPtel MD on February 06, 2017 at 9:49 Board Certified Radiologist. This report was verified electronically.
--- NOTE | 2017-02-06 10:22 | GIPROC ---
[facility] [address] [facility] [address]. [facility], [address] EGD PROCEDURE REPORT EXAM DATE: 02/06/2017 PATIENT NAME: Tiffany Aguilar MR #: [id number] BIRTHDATE: 1935 ATTENDING: Marisol Mosley MD ORDER #: [id number] COPY WORKER: Kristie Ndiaye and Demario Glasgow STATUS: inpatient INDICATIONS: The patient is a 81 yr old female here for an EGD due to anemia, nausea PROCEDURE PERFORMED: EGD w/ biopsy MEDICATIONS: Per Anesthesia and None. TOPICAL ANESTHETIC: none CONSENT: The patient understands the risks and benefits of the procedure and understands that these risks include, but are not limited to: sedation, allergic reaction, infection, perforation and/or bleeding. Alternative means of evaluation and treatment include, among others: physical exam, x-rays, and/or surgical intervention. The patient elects to proceed with this endoscopic procedure. medical equipment was checked for proper function. Hand hygiene and appropriate measures for infection prevention was taken. After the risks, benefits and alternatives of the procedure were thoroughly explained, Informed consent was verified, confirmed and timeout was successfully executed by the treatment team. The patient was anesthetized with topical anesthesia and the Pentax [id number] endoscope was introduced through the mouth and advanced to the second portion of the duodenum. Retroflexed views revealed a hiatal hernia The gastroscope was then slowly withdrawn and removed. Duodenum biopsy gastritis antrum-biopsy hiatal hernia-retained food in hiatal hernia. ADVERSE EVENTS: There were no complications. IMPRESSIONS: 1. Duodenum biopsy gastritis antrum-biopsy hiatal hernia-retained food in hiatal hernia 2. Retroflexed views revealed a hiatal hernia RECOMMENDATIONS: 1. Await biopsy results. Biopsy results will not be ready for 7-10 days. If you don't hear from us in two weeks, call our office for biopsy results. 2. Begin feeding tomorrow 3. Continue PPI 4. Avoid NSAIDS 5. Colonoscopy if bone marrow biopsy negative gastroparesis diet fu office in 2 weeks PATIENT CONDITION: stable DISPOSITION: Inpatient REPEAT EXAM: EGD pending biopsy results Marisol Mosley MD eSigned: Marisol Mosley MD 02/06/2017 10:22 AM cc: PATIENT NAME: Tiffany Aguilar MR#: [id number]
--- NOTE | 2017-02-06 11:28 | PD.ONC.PN ---
Subjective Subjective Remarks Afebrile overnight. patient just back from EGD. She complains of generalized pain but is otherwise without complaint. Objective Data Date Time Temp Pulse Resp B/P Pulse Ox O2 Delivery O2 Flow Rate FiO2 02/06/17 10:53 98.0 57 20 139/64 99 Nasal Cannula 2 02/06/17 10:45 57 20 139/64 99 Nasal Cannula 2 02/06/17 10:30 57 20 130/60 98 Nasal Cannula 2 02/06/17 10:23 98.1 66 20 119/55 96 Nasal Cannula 2 02/06/17 04:00 98.3 63 18 140/64 94 02/06/17 00:00 99.2 69 16 116/60 93 02/05/17 20:00 97.7 74 17 142/65 95 02/05/17 16:00 98.1 73 20 137/65 94 02/05/17 12:00 96.6 63 20 128/58 95 02/06/17 02/06/17 02/06/17 07:00 15:00 23:00 Intake Total 430 ml Balance 430 ml Result Diagram: 02/06/17 0508 02/06/17 0508 Laboratory Results Laboratory Tests Test 02/05/17 02/06/17 12:00 05:08 White Blood Count 5.2 TH/MM3 3.6 TH/MM3 Red Blood Count 2.94 MIL/MM3 2.65 MIL/MM3 Hemoglobin 9.1 GM/DL 8.1 GM/DL Hematocrit 27.0 % 24.5 % Mean Corpuscular Volume 91.8 FL 92.2 FL Mean Corpuscular Hemoglobin 30.9 PG 30.6 PG Mean Corpuscular Hemoglobin 33.7 % 33.2 % Concent Red Cell Distribution Width 19.3 % 20.0 % Platelet Count 131 TH/MM3 127 TH/MM3 Mean Platelet Volume 8.5 FL 8.7 FL Neutrophils (%) (Auto) 73.8 % Lymphocytes (%) (Auto) 18.8 % Monocytes (%) (Auto) 3.9 % Eosinophils (%) (Auto) 3.3 % Basophils (%) (Auto) 0.2 % Neutrophils # (Auto) 3.9 TH/MM3 Lymphocytes # (Auto) 1.0 TH/MM3 Monocytes # (Auto) 0.2 TH/MM3 Eosinophils # (Auto) 0.2 TH/MM3 Basophils # (Auto) 0.0 TH/MM3 CBC Comment AUTO DIFF Differential Total Cells 100 Counted Neutrophils % (Manual) 75 % Lymphocytes % 20 % Monocytes % 3 % Eosinophils % 2 % Neutrophils # (Manual) 3.9 TH/MM3 Differential Comment FINAL DIFF MANUAL Hypersegmented Polys 1+ Platelet Estimate LOW Platelet Morphology Comment NORMAL Ovalocytes 1+ Keratocytes OCC Sodium Level 143 MEQ/L Potassium Level 4.5 MEQ/L Chloride Level 113 MEQ/L Carbon Dioxide Level 22.9 MEQ/L Anion Gap 7 MEQ/L Blood Urea Nitrogen 21 MG/DL Creatinine 2.10 MG/DL Estimat Glomerular Filtration 22 ML/MIN Rate Random Glucose 84 MG/DL Calcium Level 7.5 MG/DL Administered Medications Medications (Trade) Dose Ordered Sig/Loco Route PRN Reason Start Time Stop Time Status Last Admin Dose Admin Heparin Sodium (Porcine) (Heparin Central Flush) 500 units UNSCH IVF 02/01/17 21:30 02/06/17 04:32 Sodium Chloride (NS Flush) 2 ml BID IV FLUSH 02/02/17 09:00 02/04/17 21:00 Ondansetron HCl (Zofran Inj) 4 mg Q6H PRN IVP NAUSEA OR VOMITING 02/01/17 23:30 02/04/17 22:14 Pantoprazole Sodium (Protonix Inj) 40 mg Q24H IV PUSH 02/02/17 00:00 02/06/17 00:13 Allopurinol (Zyloprim) 100 mg DAILY PO 02/02/17 09:00 02/05/17 09:07 Carvedilol (Coreg) 6.25 mg Q12HR PO 02/02/17 09:00 02/05/17 21:43 Clopidogrel Bisulfate (Plavix) 75 mg DAILY PO 02/02/17 09:00 Hold 02/05/17 09:07 Erythromycin (Ilotycin 0.5% Opth Oint) 1 applic Q6HR LEFT EYE 02/02/17 12:00 02/06/17 00:13 Lactobacillus Acidophilus (Lactinex) 4 tab BID PO 02/02/17 10:00 02/05/17 21:55 Pantoprazole Sodium (Protonix) 40 mg DAILY PO 02/02/17 10:00 02/05/17 09:07 Potassium Chloride (KCl) 10 meq DAILY PO 02/02/17 10:00 02/05/17 09:08 Pravastatin Sodium 20 mg 20 mg DAILY PO 02/02/17 10:00 02/05/17 09:07 Dextrose/Lactated Ringer's (D5-Lr Inj) 1,000 ml @ 50 mls/hr Q20H IV 02/03/17 15:15 02/06/17 02:06 Nifedipine (Procardia Xl) 60 mg DAILY PO 02/04/17 13:30 02/05/17 09:07 Fentanyl (Duragesic 75 Mcg Patch.72 Hr) 2 patch Q72H T-DERMAL 02/04/17 17:00 02/04/17 16:53 Oxycodone HCl (Roxicodone) 20 mg Q6H PO 02/04/17 22:00 02/06/17 04:23 Miscellaneous Information 1 Q72H T-DERMAL 02/04/17 17:00 02/04/17 16:53 Patient Own Medication PT OWN MED: NUCY... BID PO 02/04/17 21:00 02/05/17 21:42 Iron Sucrose/ Sodium Chloride (Venofer Inj/NS Inj) 110 ml @ 110 mls/hr DAILY IV 02/05/17 10:00 02/07/17 09:59 02/05/17 10:00 Objective Remarks GENERAL: Elderly female, sitting up in bed in nad. SKIN: Warm and dry. HEAD: Normocephalic. EYES: No injection or drainage. NECK: Supple, trachea midline. CARDIOVASCULAR: Regular rate and rhythm RESPIRATORY: Breath sounds equal bilaterally. No accessory muscle use. GASTROINTESTINAL: Abdomen soft, non-tender, nondistended. EXTREMITIES: No cyanosis NEUROLOGICAL: awake, alert, normal speech. moving extremities. Assessment/Plan Problem List: (1) HX: breast cancer Status: Acute Plan: --oncologist is step-daughter, Dr. Aguilar. --patient apparently on hormonal therapy outpatient --CT ab/pelvis showed widespread bony disease, possible hiatal hernia or mass, bilateral pleural effusions --on multiple pain medications (2) Symptomatic anemia Status: Acute Plan: --s/p pRBC infusion in ED --Hemoccult negative --transfuse as needed --receives Procrit outpatient --B12/folate WNL Assessment 81y/o female admitted with anemia, altered mental status. h/o CAD, breast cancer, renal insufficiency, GERD Anemia Rheumatoid arthritis, Fibromyalgia, Chronic back pain, Mastectomy for history of breast cancer Plan 1. follow up with Dr. Aguilar outpatient. proceed with bone biopsy outpatient 2. 1 unit pRBC today 3. clear for discharge. Attending Statement The exam, history, and the medical decision-making described in the above note were completed with the assistance of the mid-level provider. I reviewed and agree with the findings presented. I attest that I had a [id number] encounter with the patient on the same day, and personally performed and documented my assessment and findings in the medical record. EGD today plans for SNF discharge weak and deconditioned Anemia persists which is contributing to her weakness Transfuse 1 unit of pRBC discussed with patient's family d/w Lary Ware Feb 06, 2017 11:28 Vamsi Hernandez MD Feb 06, 2017 22:53
[2017-02-06] MEDS: NIFEdipine 60 MG SUSTAINED RELEASE TAB PO SCH (11:30)
[2017-02-06] MEDS: TAPENTADOL 150 MG PO SCH ×2 (11:30→21:03)
[2017-02-06] MEDS: PANTOPRAZOLE SOD 40 MG DELAYED RELEASE TAB PO SCH (11:30)
[2017-02-06] MEDS: ALLOPURINOL 100 MG TAB PO SCH (11:30)
[2017-02-06] MEDS: CARVEDILOL 6.25 MG TAB PO SCH ×2 (11:30→21:02)
[2017-02-06] MEDS: PRAVASTATIN SOD 20 MG TAB PO SCH (11:30)
[2017-02-06] MEDS ORDERED: PROPOFOL 200 MG/20 ML AMP IV ONE (11:32)
--- NOTE | 2017-02-06 11:37 | MB ---
cc: THOM GREEN M.D. DATE OF CONSULTATION 02/06/2017 REASON FOR CONSULTATION Evaluation of Plavix therapy. HISTORY Ms. Aguilar is an 80-year-old white female well-known to me with a history of ASHD, prior CABG, rheumatoid arthritis, breast cancer, and anemia, who was admitted to the hospital for abdominal discomfort and anemia workup. She is currently undergoing evaluation of an abdominal mass. She is scheduled for endoscopy today and also has been recommended undergoing a bone marrow biopsy. That was postponed because of her ongoing Plavix therapy. The patient has been taking all of her medications as directed. Her last dose of Plavix was yesterday. MEDICATIONS Include: 1. Plavix 75 mg daily 2. Carvedilol 20 mg daily 3. Torsemide 40 mg once weekly and 20 mg the remainder of the week daily 4. Klor-Con 5 mEq b.i.d. 5. Sublingual Nitroglycerin p.r.n. 6. Zocor 10 mg daily 7. Pantoprazole 40 mg daily 8. Benadryl 25 mg q4h p.r.n. 9. Tylenol 650 kg q4h p.r.n. 10. Roxicodone 20 mg q6h 11. Duragesic patch 12. Procardia XL 60 mg daily PAST MEDICAL HISTORY As mentioned above. She did have a pharmacologic stress test in my office May 11, 2015 that was a normal study. Left ventricular ejection fraction at that time was 74%. ALLERGIES Please see current documented listing in the chart. PAST SURGICAL HISTORY 1. Right mastectomy 2. Laminectomy 3. Coronary artery bypass grafting June 03, 2002. FAMILY HISTORY Noncontributory SOCIAL HISTORY The patient denies tobacco, alcohol or illicit drug use at this time. REVIEW OF SYSTEMS Some abdominal discomfort. Denies lower extremity edema or claudication. Denies any exertional or resting chest discomfort. Denies dyspnea, orthopnea or PND type symptoms. Denies fevers, chills, night sweats, nausea, vomiting or diarrhea. Except for that mentioned in HPI, our complete 12-point review of systems is otherwise negative. PHYSICAL EXAMINATION An elderly white female lying in bed in no distress at this time. VITAL SIGNS: Blood pressure 140/64 mmHg, heart rate is 63 and regular, respiratory rate 18, temperature 98.3, oxygen saturation 94% on room air. HEAD: Normocephalic and atraumatic. EYES: Pupils equal round and reactive to light. Sclerae anicteric. Extraocular movements intact. NECK: The neck is supple. There is no adenopathies. No jugular venous distension at 45 degrees. Carotid upstrokes are normal. No bruits. LUNGS: Clear. HEART: PMI is not displaced. S1-S2 are normal and S4 is heard. There is a 2/6 systolic murmur at the apex and left sternal border. ABDOMEN: Bowel sounds present, soft, nontender. Bowel sounds are present and soft. There is mild diffuse tenderness. No hepatosplenomegaly, masses or bruits. EXTREMITIES: No cyanosis, clubbing or edema. Perfusion adequate in the upper and lower extremities. There are no femoral bruits. EKG shows a sinus rhythm. This is from February 01, 2017 and shows sinus bradycardia and late transition, otherwise normal EKG. A CT of the chest was performed on February 05 that shows a widespread bony metastases, right middle lobe nodule suspect suspicious for metastatic disease, bilateral pleural effusions parenchymal changes in the left lung, left hepatic cyst and a large hiatal hernia. LABORATORY DATA CBC white count 3.6, hemoglobin 8.1, hematocrit 24.5, platelet count 127,000. Coags were normal. Chemistries normal with a BUN of 21, a creatinine of 2.1, glucose 84. IMPRESSION 1. ASHD status post CABG June 03, 2002, currently stable and asymptomatic. 2. Normal pharmacologic stress - MPI May 11, 2015. 3. Normal left ventricular function. 4. Hypertension, well-controlled. 5. Suspected metastatic cancer undergoing work up. 6. GI bleeding and anemia. RECOMMENDATIONS The patient has been recommended a bone marrow biopsy. While this would likely be safe to do with her on Plavix, there is no urgency for this. I do not think that she would be at significant increased risk for temporarily discontinuing her Plavix. That has been held this morning. Plans are for her marrow biopsy in five days. That could probably be done as an outpatient and thereafter if her GI bleeding is not problematic and anemia resolved, could resume Plavix. It is noted that she has been on Plavix only because she is intolerant to aspirin due to GI side effects. If you have any additional questions, please contact me. I will see her back as scheduled in the office. Thank you for allowing us to participate in the care of this patient. MD DEION Calzada/OZIEL /9:06 AM /11:26 AM
[2017-02-06 12:00] VITALS: BP 133/62; PULSE 68; RESP 18; TEMP 96.3; O2SAT 97
[2017-02-06] MEDS ORDERED: DO NOT ADM ANY ANTICOAGULANT DRUGS PRN (12:30)
--- NOTE | 2017-02-06 13:27 | HHI.PR ---
Subjective Interval History Alert, verbal, complaining of her chronic pain, reasonably well-controlled with her current medications Review of Systems Constitutional Constitutional Remarks 10 systems reviewed and otherwise negative Vitals/Results Intake & Output 02/05/17 02/05/17 02/06/17 15:00 23:00 07:00 # Voids 4 3 0 Vital Signs Vital Signs Date Time Temp Pulse Resp B/P Pulse Ox O2 Delivery O2 Flow Rate FiO2 02/06/17 10:53 98.0 57 20 139/64 99 Nasal Cannula 2 02/06/17 10:45 57 20 139/64 99 Nasal Cannula 2 02/06/17 10:30 57 20 130/60 98 Nasal Cannula 2 02/06/17 10:23 98.1 66 20 119/55 96 Nasal Cannula 2 02/06/17 04:00 98.3 63 18 140/64 94 02/06/17 00:00 99.2 69 16 116/60 93 02/05/17 20:00 97.7 74 17 142/65 95 02/05/17 16:00 98.1 73 20 137/65 94 CBC/BMP: 02/06/17 0508 02/06/17 0508 Lab Results Laboratory Tests Test 02/06/17 05:08 White Blood Count 3.6 TH/MM3 Red Blood Count 2.65 MIL/MM3 Hemoglobin 8.1 GM/DL Hematocrit 24.5 % Mean Corpuscular Volume 92.2 FL Mean Corpuscular Hemoglobin 30.6 PG Mean Corpuscular Hemoglobin 33.2 % Concent Red Cell Distribution Width 20.0 % Platelet Count 127 TH/MM3 Mean Platelet Volume 8.7 FL Sodium Level 143 MEQ/L Potassium Level 4.5 MEQ/L Chloride Level 113 MEQ/L Carbon Dioxide Level 22.9 MEQ/L Anion Gap 7 MEQ/L Blood Urea Nitrogen 21 MG/DL Creatinine 2.10 MG/DL Estimat Glomerular Filtration 22 ML/MIN Rate Random Glucose 84 MG/DL Calcium Level 7.5 MG/DL Physical Exam General General Appearance: Comfortable, Malnourished Eyes Eye Exam: Pupils Reactive Ears & Nose Ears & Nose Exam: Nasal Mucosa [place] Throat Throat Exam: Oral Mucosa [place] & Moist Neck Neck Exam: Trachea Midline Pulmonary Resp Exam: Breath Sounds Equal, No Distress Cardiology CV Exam: Normal Sinus Rhythm, Good Perfusion Gastrointestinal/Abdomen GI Exam: Non-Tender, Bowel Sounds Present GI Remarks Mildly tender Musculoskeletal MS Exam: Normal Gait, Normal Tone Integumentary Skin Exam: Warm, Dry Extremeties Extremities Exam: No Edema Neurologic Neuro Exam: Awake, Speech Clear, Moving All Extremities Psychiatric Psych Exam: Appropriate Responses Assessment/Plan Assessment/Plan Problem List: Breast cancer Suspected widespread bone metastases Symptomatic anemia, no symptoms at rest Heme positive stools EGD done during this admission Large Hiatal hernia Retained material in her stomach AYESHA (acute kidney injury) Hypoglycemia Thrombocytopenia Left hydronephrosis, seen by urology, treatment conservative HTN (hypertension) Narcotic dependence Altered mental status Chronic pain ASHD (arteriosclerotic heart disease) assessment and Plan Oncology and Gastroenterology following Discussed with her own oncologist Dr. Abbott, discharged to halfway facility Bone biopsy at interventional radiology Sunday Continue with Protonix Pain control Follow renal function Avoid nephrotoxic agents Hold diuretics Hold Plavix Discussed with patient Discussed with nurse Discharge Minutes: [address] Souza MD Feb 06, 2017 13:27
[2017-02-06] MEDS ORDERED: NIFE60TA8 PO (13:34)
[2017-02-06] MEDS ORDERED: FENT75T T-DERMAL (13:34)
[2017-02-06] MEDS ORDERED: NUCY100T4 PO (13:34)
[2017-02-06] MEDS ORDERED: OXYC-395 PO (13:34)
[2017-02-06 16:00] VITALS: BP 132/60; PULSE 68; RESP 20; TEMP 97.3; O2SAT 97
--- NOTE | 2017-02-06 16:33 | HHI.DS ---
Discharge Summary Admission Date Feb 01, 2017 at 21:53 Discharge Date: Feb 06, 2017 Admitting Diagnosis Symptomatic anemia, renal insuffiency (1) Symptomatic anemia Diagnosis: Principal (2) AYESHA (acute kidney injury) Diagnosis: Principal (3) HTN (hypertension) Diagnosis: Principal (4) Narcotic dependence Diagnosis: Secondary (5) Altered mental status Diagnosis: Principal (6) Chronic pain Diagnosis: Secondary (7) ASHD (arteriosclerotic heart disease) Diagnosis: Secondary (8) HX: breast cancer Diagnosis: Secondary (9) Lung nodule Diagnosis: Secondary (10) Bone metastasis Diagnosis: Secondary Procedures CT guided bone biopsy. Brief History This was a 80-year-old elderly female with significant past medical history of coronary artery disease, CK D stage III, chronic back pain on chronic narcotics , breast cancer. 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 Linda bAbott. Patient was altered, she doesn't know why she is here. She complained of generalized weakness and back pain. Per review of emergency room records, Dr. Abbott sent patient for a blood transfusion, we' ll like to keep hemoglobin greater than 10.. Apparently the patient had been feeling weaker than normal and went to see Dr. Abbott which showed a hemoglobin of 8.4. Patient had been receiving Procrit injections by her airplane pilot commercial. Patient stated that she also saw Dr. Salamanca her primary care physician. She denied any abdominal discomfort, no diarrhea. She thought she may have seen blood in her stool. No hematemesis. She denied any chest pain, no shortness of breath. Patient was known to the undersigned from previous admissions, she was usually alert and oriented x 3. She has 2 fentanyl patches on, each 75 g, in addition she takes Nucynta. It was requested for the nurse to remove the patches. CBC/BMP: 02/06/17 0508 02/06/17 0508 Significant Findings Laboratory Tests Test 02/04/17 02/05/17 02/05/17 02/06/17 05:50 04:00 12:00 05:08 White Blood Count 2.8 TH/MM3 3.6 TH/MM3 (4.0-11.0) (4.0-11.0) Red Blood Count 2.61 MIL/MM3 2.94 MIL/MM3 2.65 MIL/MM3 (4.00-5.30) (4.00-5.30) (4.00-5.30) Hemoglobin 8.1 GM/DL 9.1 GM/DL 8.1 GM/DL (11.6-15.3) (11.6-15.3) (11.6-15.3) Hematocrit 23.9 % 27.0 % 24.5 % (35.0-46.0) (35.0-46.0) (35.0-46.0) Red Cell Distribution Width 18.6 % 19.3 % 20.0 % (11.6-17.2) (11.6-17.2) (11.6-17.2) Platelet Count 104 TH/MM3 131 TH/MM3 127 TH/MM3 (150-450) (150-450) (150-450) Chloride Level 113 MEQ/L 113 MEQ/L (98-107) (98-107) Blood Urea Nitrogen 35 MG/DL (7-18) 21 MG/DL (7-18) Creatinine 2.36 MG/DL 2.10 MG/DL (0.50-1.00) (0.50-1.00) Estimat Glomerular Filtration 20 ML/MIN (>89) 22 ML/MIN (>89) Rate Random Glucose 159 MG/DL (74-106) Calcium Level 7.9 MG/DL 7.5 MG/DL (8.5-10.1) (8.5-10.1) Prothrombin Time 12.2 SEC (9.8-11.6) Iron Level 22 MCG/DL (50-170) Total Iron Binding Capacity 140 MCG/DL (250-450) Percent Iron Saturation 15.7 % (20-50) Transferrin 100 MG/DL (213-418) Neutrophils (%) (Auto) 73.8 % (16.0-70.0) Neutrophils % (Manual) 75 % (16-70) Hypersegmented Polys 1+ (NORMAL) Platelet Estimate LOW (NORMAL) Ovalocytes 1+ (NORMAL) Keratocytes OCC (NORMAL) Imaging Last Impressions Consultation 02/05/17 0600 Signed Impressions: Service Date/Time: Sunday, February 05, 2017 06:00 - CONCLUSION: Bone biopsy will be rescheduled once the patient's coagulation status is corrected. Burton Patel MD Chest CT 02/05/17 0000 Signed Impressions: Service Date/Time: Sunday, February 05, 2017 09:53 - CONCLUSION: 1. Widespread bony metastatic disease not present on the prior study from 2014. 2. Right middle lobe nodule suspicious for metastatic disease. 3. Bilateral pleural effusions. 4. Parenchymal changes in the left lung adjacent to major fissure partially calcified not present on the prior study of uncertain etiology could be due to posttreatment changes. There is also consolidation left upper lobe with scattered bilateral parenchymal infiltrates. 5. Left hepatic cyst and large hiatal hernia. Rose Belle MD Abdomen/Pelvis CT 02/02/17 0000 Signed Impressions: Service Date/Time: Thursday, February 02, 2017 19:13 - CONCLUSION: Widespread bony metastatic disease. Concerning findings in the lung bases. Unusual appearing large hiatal hernia with associated mass not excluded. Left kidney hydronephrosis and proximal hydroureter. Small volume of nonspecific free pelvic fluid. West Martin MD PE at Discharge GENERAL: This was a well-nourished, well-developed patient, in no apparent distress. SKIN: No rashes, ecchymoses or lesions. Cool and dry. Pale HEAD: Atraumatic. Normocephalic. No temporal or scalp tenderness. EYES: Pupils equal round and reactive. Extraocular motions intact. No scleral icterus. No injection or drainage. ENT: Nose without bleeding, purulent drainage or septal hematoma. Throat without erythema, tonsillar hypertrophy or exudate. Uvula midline. Airway patent. NECK: Trachea midline. No JVD or lymphadenopathy. Supple, nontender, no meningeal signs. CARDIOVASCULAR: Regular rate and rhythm without murmurs, gallops, or rubs. RESPIRATORY: Clear to auscultation. Breath sounds equal bilaterally. No wheezes , rales, or rhonchi. GASTROINTESTINAL: Abdomen soft, non-tender, nondistended. No hepato-splenomegaly , or palpable masses. No guarding. MUSCULOSKELETAL: Extremities without clubbing, cyanosis, or edema. No joint tenderness, effusion, or edema noted. No calf tenderness. Negative Homans sign bilaterally. NEUROLOGICAL: Awakes to voice, oriented to self, situation, year. Less confused. No focal deficits. Hospital Course Patient was evaluated in the emergency room, hemoglobin was 8.3 and hematocrit 25. Haptoglobin is 253. BUN and creatinine are elevated, 61 and creatinine 3.2. Patient has been voiding. Rectal exam performed in the emergency room showed slightly heme-positive dark green stool on exam. One unit of blood has been given. Patient is admitted for further evaluation and treatment. These are the diagnosis used to treat patient during this hospital stay. (1) Symptomatic anemia (2) AYESHA (acute kidney injury) (3) HTN (hypertension) (4) Narcotic dependence (5) Altered mental status (6) Chronic pain (7) ASHD (arteriosclerotic heart disease) (8) HX: breast cancer (9) Lung nodule (10) Bone metastasis 81-year-old female sent from hematology and primary care physician's office for weakness, symptomatic anemia. Heme-positive stools. Had been receiving Procrit injections per hematology. Admitted initiallyy for possible GI bleed. CT abdomen done which showed bilateral pleural effusions, widespread bony metastatic disease, unusual appearing large hiatal hernia with associated mass, left kidney hydronephrosis Patient Has Hx of breast cancer. -GI initially consulted, plan was to do EGD now on hold based on CT abdomen findings -Pt's oncologist recommended bone bx. -Oncology input appreciated, Dr. Hernandez evaluated. Plan is for CT-guided bone biopsy today. Anemia, hematuria positve stools in ED -GI work up on hold for now -Received 1 unit of packed cells, H&H stable -Stools OB x 1 negative Low iron studies, on IV sucrose Altered mental status, possibly secondary to narcotic dependence, anemia. Improved some, although still has periods of confusion -continue with narcotics, monitor closely. -will need pain management consideration considering recent dx and use of chronic narcotics. Acute on chronic kidney disease, now a stage IV. CT findings of hydronephrosis. Creat improving, making urine -evaluated per Dr. Gonzalez, no need for intervention at this time. Hydronephrosis likely due to extrinsic compression from tumor. If worsens, may need stent and nephro tube -creat improving when monitoring of labs. -Continue with cautious hydration during her hospital course. Avoid nephrotoxic agents Avoid NSAIDs Hold diuretics and ALBERTO inhibitor Chronic pain and narcotic dependence -pain management , but monitored closely for excess. Coronary artery disease, prior history of CABG Continue with home medications, Coreg -Plavix on hold for bx SCDs for DVT prophylaxis Protonix for GI prophylaxis Pt. frail, refusing to eat unless family present. Ensure ordered for supplement. She indicates she would like a little more time with family and wants to be treated. However, she defers decision making to Dr. Aguilar. Has a son whom she wants to keep involved as well. Poss. palliative care consult after work up done. Condition guarded. Patient needs SNF placement for her safety and medical care. She was seen per Dr. [place] of [place] and felt she was stable for next level of care. Pt Condition on Discharge: Stable Discharge Disposition: Discharge to SNF Discharge Instructions DIET: Follow Instructions for: As Tolerated, No Restrictions Activities you can perform: Weight Bearing as Alexandr New Medications: Tapentadol (Nucynta) 100 Mg Tab 150 MG PO TID Pain Management #90 Ref 0 TAB Fentanyl Patch 72 HR (Duragesic Patch 72 HR) 75 Mcg/Hr Patch 2 PATCH T-DERMAL Q72H Pain Management #20 EA Nifedipine ER 24 HR (Nifedipine ER 24 HR) 60 Mg Tab 60 MG PO DAILY Blood Pressure Management #30 TAB Oxycodone (Oxycodone) 10 Mg Tab 20 MG PO Q6H Pain Management #120 TAB Continued Medications: Allopurinol (Allopurinol) 100 Mg Tab 100 MG PO DAILY Gout #30 Ref 0 TAB Carvedilol (Coreg) 6.25 Mg Tab 6.25 MG PO Q12HR CAD #60 Ref 1 TAB Erythromycin Opth Oint (Erythromycin Opth Oint) 5 Mg/Gm Oint 1 APPLIC LEFT EYE Q6HR Infection #1 TUBE Lactobacillus Acidophilus (Floranex) 1 Tab 4 TAB PO BID Nutritional Supplement #480 Ref 0 TAB Meclizine (Meclizine) 25 Mg Tab 25 MG PO TID PRN VERTIGO Ref 0 TAB Nitroglycerin SL (Nitroglycerin SL) 0.4 Mg Subl 0.4 MG SL DIRECTED ONE TABLET UNDER THE TONGUE NEEDED FOR CHEST PAIN, MAY REPEAT EVERY FIVE MINUTES FOR A TOTAL OF 3 DOSES OR CALL 911 IF NO RELIEF PRN CHEST PAIN #100 Ref 0 TAB.SL Ondansetron HCl (Ondansetron HCl) 4 Mg Tab 4 MG PO Q6HR PRN NAUSEA OR VOMITING Pantoprazole (Pantoprazole) 40 Mg Tab 40 MG PO DAILY Reflux #30 Ref 0 TAB Potassium Chloride ER (Potassium Chloride ER) 10 Meq Tab 5 MEQ PO BID Electrolyte Replacement #60 Ref 0 TAB Simvastatin (Simvastatin) 10 Mg Tab 10 MG PO DAILY Cholesterol Management #30 Ref 0 TAB Torsemide (Torsemide) 20 Mg Tab 20 MG PO DAILY #30 Ref 0 TAB Valsartan (Valsartan) 40 Mg Tab 40 MG PO DAILY #60 Ref 0 TAB Discontinued Medications: Clopidogrel (Plavix) 75 Mg Tab 75 MG PO DAILY Blood Clot Prevention #30 Ref 0 TAB Fentanyl Patch 72 HR (Fentanyl Patch 72 HR) 75 Mcg/Hr Patch 150 MCG T-DERMAL Q72H Remove old patches when new ones placed. Pain Management # 10 Ref 0 PATCH Meclizine (Meclizine) 12.5 Mg Tab 12.5 MG PO DIRECTED PRN VERTIGO Ref 0 TAB Oxycodone (Oxycodone) 20 Mg Tab 20 MG PO Q4-6H NOT TO EXCEED 5 TABLETS/24HRS PRN BREAKTHROUGH PAIN Ref 0 TAB Tapentadol (Nucynta) 100 Mg Tab 150 MG PO TID PRN PAIN Ref 0 TAB Terbinafine (Terbinafine) 250 Mg Tab 250 MG PO DAILY Manage Fungal Infection Ref 0 TAB Valsartan (Diovan) 40 Mg Tab 40 MG PO DAILY #60 Ref 0 TAB Brianda Abreu Feb 06, 2017 16:33
[2017-02-06 21:59] VITALS: BP 130/62; PULSE 72; RESP 16; TEMP 97.6; O2SAT 93
[2017-02-07] MEDS: PANTOPRAZOLE SODIUM 40 MG VIAL IV PUSH SCH
[2017-02-07 01:35] VITALS: BP 121/58; PULSE 65; RESP 16; TEMP 98.4; O2SAT 92
[2017-02-07] MEDS ORDERED: ALTEPLASE RECOMBINANT 2 MG VIAL INTRACATH PRN (02:30)
[2017-02-07] MEDS: ERYTHROMYCIN 0.5% OPTH OINT 3.5 GM TUBO LEFT EYE SCH ×2 (02:59→05:32)
[2017-02-07 04:04] VITALS: BP 118/50; PULSE 61; RESP 16; TEMP 98.6; O2SAT 95
[2017-02-07] MEDS ORDERED: ACETAMINOPHEN 325 MG TAB PO PRN (04:30)
[2017-02-07] MEDS ORDERED: diphenhydrAMINE HCL 25 MG CAP PO PRN (04:30)
[2017-02-07 05:56] LABS: AUTOMATED NEUTROPHIL # 1.8 TH/MM3 (1.8-7.7); BASOPHIL % 0.3 % (0.0-2.0); EOSINOPHIL # 0.1 TH/MM3 (0-0.4); EOSINOPHIL % 4.3 % (0.0-4.0); HEMATOCRIT 29.1 % (35.0-46.0); LYMPH % 23.8 % (9.0-44.0); LYMPHOCYTE # 0.7 TH/MM3 (1.0-4.8); MEAN CELL VOLUME 93.2 FL (80.0-100.0); MEAN CORPUSCULAR HEMOGLOBIN 30.4 PG (27.0-34.0); MEAN CORPUSCULAR HGB CONC 32.6 % (32.0-36.0); MONO % 8.3 % (0.0-8.0); NEUT % 63.3 % (16.0-70.0); PLATELET COUNT 165 TH/MM3 (150-450); RED BLOOD COUNT 3.12 MIL/MM3 (4.00-5.30); RED CELL DISTRIBUTION WIDTH 20.8 % (11.6-17.2); WHITE BLOOD COUNT 2.8 TH/MM3 (4.0-11.0)
[2017-02-07 06:04] LABS: HEMO FLAGS AUTO DIFF
[2017-02-07 07:23] LABS: OVALOCYTES 1+ (NORMAL); POLYCHROMASIA 2.8 % (0.0-1.9); SCAN/DIFF AUTO DIFF CONFIRMED; TEARDROP RBCS 1+ (NORMAL)
[2017-02-07 07:50] VITALS: BP 155/66; PULSE 69; RESP 20; TEMP 98.8; O2SAT 97
[2017-02-07] MEDS: POTASSIUM CHLORIDE 10 MEQ CONTROLLED RELEASE TAB PO SCH (09:31)
[2017-02-07] MEDS: LACTOBACILLUS ACIDOPHILUS TAB PO SCH (09:31)
[2017-02-07] MEDS: NIFEdipine 60 MG SUSTAINED RELEASE TAB PO SCH (09:31)
[2017-02-07] MEDS: PANTOPRAZOLE SOD 40 MG DELAYED RELEASE TAB PO SCH (09:31)
[2017-02-07] MEDS: ALLOPURINOL 100 MG TAB PO SCH (09:32)
[2017-02-07] MEDS: PRAVASTATIN SOD 20 MG TAB PO SCH (09:32)
[2017-02-07] MEDS: CARVEDILOL 6.25 MG TAB PO SCH (09:32)
[2017-02-07] MEDS: SODIUM CHLORIDE 0.9% FLUSH 10 ML FLUSH IV FLUSH SCH (09:32)
--- NOTE | 2017-02-07 11:25 | HHI.GIFU ---
Subjective Remarks Resting in bed. C/O nausea without vomiting, increased abdominal pain today- just took pain meds and waiting for these to go into effect. Did tolerate breakfast. No active bleeding. Objective Vitals I&O Vital Signs Date Time Temp Pulse Resp B/P Pulse Ox O2 Delivery O2 Flow Rate FiO2 02/07/17 07:50 98.8 69 20 155/66 97 02/07/17 04:04 98.6 61 16 118/50 95 02/07/17 01:35 98.4 65 16 121/58 92 02/06/17 21:59 97.6 72 16 130/62 93 02/06/17 16:00 97.3 68 20 132/60 97 02/06/17 12:00 96.3 68 18 133/62 97 I/O 02/06/17 02/06/17 02/06/17 02/07/17 02/07/17 02/07/17 07:00 15:00 23:00 07:00 15:00 23:00 Intake Total 434 ml 150 ml 100 ml Output Total 300 ml Balance 434 ml -150 ml 100 ml Intake Oral 4 ml 150 ml 100 ml IV Total 30 ml Other 400 ml Output Urine Total 300 ml # Voids 0 5 0 # Bowel Movements 0 0 Laboratory Laboratory Tests Test 02/07/17 02/07/17 01:40 05:19 Blood Type A POSITIVE Antibody Screen NEGATIVE Crossmatch Leukocyte-Reduced Red Blood Cells Blood Bank Comment White Blood Count 2.8 Red Blood Count 3.12 Hemoglobin 9.5 Hematocrit 29.1 Mean Corpuscular Volume 93.2 Mean Corpuscular Hemoglobin 30.4 Mean Corpuscular Hemoglobin 32.6 Concent Red Cell Distribution Width 20.8 Platelet Count 165 Mean Platelet Volume 8.4 Neutrophils (%) (Auto) 63.3 Lymphocytes (%) (Auto) 23.8 Monocytes (%) (Auto) 8.3 Eosinophils (%) (Auto) 4.3 Basophils (%) (Auto) 0.3 Neutrophils # (Auto) 1.8 Lymphocytes # (Auto) 0.7 Monocytes # (Auto) 0.2 Eosinophils # (Auto) 0.1 Basophils # (Auto) 0.0 CBC Comment AUTO DIFF Differential Comment AUTO DIFF CONFIRMED Polychromasia 2.8 Tear Drop Cells 1+ Ovalocytes 1+ Date/Time Procedure Status Source Growth 02/03/17 07:30 Stool Occult Blood (MELISSA) - Final Complete Stool Stool HEMOCCULT NEGATIVE Imaging Last Impressions Consultation 02/05/17 0600 Signed Impressions: Service Date/Time: Sunday, February 05, 2017 06:00 - CONCLUSION: Bone biopsy will be rescheduled once the patient's coagulation status is corrected. Burton Patel MD Chest CT 02/05/17 0000 Signed Impressions: Service Date/Time: Sunday, February 05, 2017 09:53 - CONCLUSION: 1. Widespread bony metastatic disease not present on the prior study from 2014. 2. Right middle lobe nodule suspicious for metastatic disease. 3. Bilateral pleural effusions. 4. Parenchymal changes in the left lung adjacent to major fissure partially calcified not present on the prior study of uncertain etiology could be due to posttreatment changes. There is also consolidation left upper lobe with scattered bilateral parenchymal infiltrates. 5. Left hepatic cyst and large hiatal hernia. Rose Belle MD Abdomen/Pelvis CT 02/02/17 0000 Signed Impressions: Service Date/Time: Thursday, February 02, 2017 19:13 - CONCLUSION: Widespread bony metastatic disease. Concerning findings in the lung bases. Unusual appearing large hiatal hernia with associated mass not excluded. Left kidney hydronephrosis and proximal hydroureter. Small volume of nonspecific free pelvic fluid. West Martin MD Physical Exam HEENT: Normocephalic; atraumatic; no jaundice. CHEST: CTA CARDIAC: RRR ABDOMEN: Soft, nondistended, mod diffuse tenderness- more in epigastric area; no hepatosplenomegaly; bowel sounds are present in all four quadrants. EXTREMITIES: No clubbing, cyanosis, or edema. SKIN: Normal; no rash; no jaundice. TELLER MANAGER: alert and oriented. Assessment and Plan Plan ASSESSMENT: - Acute on chronic anemia. Patient has hx of chronic anemia, her base line around 9. S/P EGD/colonoscopy in 2010-----> Distal esophagus stricture, s/p dilatation, small hiatal hernia, gastritis, normal duodenum, normal colon, bx benign. Abdomen/Pelvis CT (02/02/17)----> Widespread bony metastatic disease. Concerning findings in the lung bases. Unusual appearing large hiatal hernia with associated mass not excluded. Left kidney hydronephrosis and proximal hydroureter. Small volume of nonspecific free pelvic fluid. S/P EGD (02/07/17)------> 1. Duodenum biopsy , gastritis antrum-biopsy, hiatal hernia-retained food in hiatal hernia, 2. Retroflexed views revealed a hiatal hernia. PPI. S/P 1 unit PRBC. HH 9.5/29.1. - Widespread bony metastatic disease. Ct as above, oncology following. Plan is for bone biopsy once off plavix x 5 days- can be done as outpatient per onc. - HTN, CAD, CKD per attending Plan: - LACIE - Await pathology - PPI - Monitor HH - Transfuse as needed - Pain meds per primary - Notify GI for active bleeding - Bone biopsy after patient has been off the plavix x 5 days - If bone biopsy negative, consider colonoscopy - Further recommendation to follow based on clinical course - Pt seen and examined by Dr. Mosley and myself and this note is written on her behalf Darlene Wood Feb 07, 2017 11:25
[2017-02-07] MEDS: TAPENTADOL 150 MG PO SCH (11:41)
[2017-02-07 11:50] VITALS: BP 151/67; PULSE 66; RESP 20; TEMP 97.3; O2SAT 95
[2017-02-07] MEDS ORDERED: DILA4TAB2 PO (13:51)
--- NOTE | 2017-02-07 13:58 | HHI.PR ---
Subjective Interval History Alert, verbal, complaining of her chronic back pain, seen in the presence of her son at her bedside Review of Systems Constitutional Constitutional Remarks 10 systems reviewed and otherwise negative Vitals/Results Intake & Output 02/06/17 02/06/17 02/07/17 15:00 23:00 07:00 Intake Total 434 ml 150 ml 100 ml Output Total 300 ml Balance 434 ml -150 ml 100 ml Intake Oral 4 ml 150 ml 100 ml IV Total 30 ml Other 400 ml Output Urine Total 300 ml # Voids 5 0 # Bowel Movements 0 0 Vital Signs Vital Signs Date Time Temp Pulse Resp B/P Pulse Ox O2 Delivery O2 Flow Rate FiO2 02/07/17 11:50 97.3 66 20 151/67 95 02/07/17 11:42 16 02/07/17 07:50 98.8 69 20 155/66 97 02/07/17 04:04 98.6 61 16 118/50 95 02/07/17 01:35 98.4 65 16 121/58 92 02/06/17 21:59 97.6 72 16 130/62 93 02/06/17 16:00 97.3 68 20 132/60 97 CBC/BMP: 02/07/17 0519 02/06/17 0508 Lab Results Laboratory Tests Test 02/07/17 02/07/17 01:40 05:19 Blood Type A POSITIVE Antibody Screen NEGATIVE Crossmatch Leukocyte-Reduced Red Blood Cells Blood Bank Comment White Blood Count 2.8 TH/MM3 Red Blood Count 3.12 MIL/MM3 Hemoglobin 9.5 GM/DL Hematocrit 29.1 % Mean Corpuscular Volume 93.2 FL Mean Corpuscular Hemoglobin 30.4 PG Mean Corpuscular Hemoglobin 32.6 % Concent Red Cell Distribution Width 20.8 % Platelet Count 165 TH/MM3 Mean Platelet Volume 8.4 FL Neutrophils (%) (Auto) 63.3 % Lymphocytes (%) (Auto) 23.8 % Monocytes (%) (Auto) 8.3 % Eosinophils (%) (Auto) 4.3 % Basophils (%) (Auto) 0.3 % Neutrophils # (Auto) 1.8 TH/MM3 Lymphocytes # (Auto) 0.7 TH/MM3 Monocytes # (Auto) 0.2 TH/MM3 Eosinophils # (Auto) 0.1 TH/MM3 Basophils # (Auto) 0.0 TH/MM3 CBC Comment AUTO DIFF Differential Comment AUTO DIFF CONFIRMED Polychromasia 2.8 % Tear Drop Cells 1+ Ovalocytes 1+ Physical Exam General General Appearance: Comfortable, Malnourished Eyes Eye Exam: Pupils Reactive Ears & Nose Ears & Nose Exam: Nasal Mucosa [place] Throat Throat Exam: Oral Mucosa [place] & Moist Neck Neck Exam: Trachea Midline Pulmonary Resp Exam: Breath Sounds Equal, No Distress Cardiology CV Exam: Normal Sinus Rhythm, Good Perfusion Gastrointestinal/Abdomen GI Exam: Non-Tender, Bowel Sounds Present GI Remarks Mildly tender Musculoskeletal MS Exam: Normal Gait, Normal Tone Integumentary Skin Exam: Warm, Dry Extremeties Extremities Exam: No Edema Neurologic Neuro Exam: Awake, Speech Clear, Moving All Extremities Psychiatric Psych Exam: Appropriate Responses Assessment/Plan Assessment/Plan Problem List: Breast cancer Suspected widespread bone metastases Symptomatic anemia, no symptoms at rest Heme positive stools EGD done during this admission Large Hiatal hernia Retained material in her stomach AYESHA (acute kidney injury) Hypoglycemia Thrombocytopenia Left hydronephrosis, seen by urology, treatment conservative HTN (hypertension) Narcotic dependence Altered mental status Chronic pain ASHD (arteriosclerotic heart disease) assessment and Plan add oral Dilaudid Oncology and Gastroenterology following Discussed with her own oncologist Dr. Abbott 02/06/17, discharge to half-way facility Bone biopsy at interventional radiology Sunday Continue with Protonix Pain control Discussed with son at length Hold diuretics Hold Plavix Discussed with patient Discussed with nurse Discharge Minutes: [address] Souza MD Feb 07, 2017 13:58
[2017-02-07] MEDS: fentaNYL 75 MCG/HR PATCH T-DERMAL SCH (15:20)
[2017-02-07] MEDS: REMOVE OLD DURAGESIC (FENTANYL) PATCH T-DERMAL SCH (15:20)
== END 2017-02-07 15:28 | DRG 812 ==
LOC: NEPC 15:59 → NEDA 21:53 → HOCA 02-02 00:05
PROVIDERS: ADMIT Specialist; ATTEND Specialist
PROC: 30233N1 Transfusion of Nonautologous Red Blood Cells into Peripheral Vein, Percutaneous Approach (ICD-10-PCS; principal; 2017-02-01)
PROC: 0DB98ZX Excision of Duodenum, Via Natural or Artificial Opening Endoscopic, Diagnostic (ICD-10-PCS; 2017-02-06)
PROC: 0DB68ZX Excision of Stomach, Via Natural or Artificial Opening Endoscopic, Diagnostic (ICD-10-PCS; 2017-02-06)
DX: D64.9 Anemia, unspecified (principal); J90 Pleural effusion, not elsewhere classified; C79.51 Secondary malignant neoplasm of bone; N18.4 Chronic kidney disease, stage 4 (severe); D69.6 Thrombocytopenia, unspecified; N17.9 Acute kidney failure, unspecified; N13.30 Unspecified hydronephrosis; F11.20 Opioid dependence, uncomplicated; M06.9 Rheumatoid arthritis, unspecified; D63.8 Anemia in other chronic diseases classified elsewhere; I25.10 Atherosclerotic heart disease of native coronary artery without angina pectoris; D63.1 Anemia in chronic kidney disease; Z95.1 Presence of aortocoronary bypass graft; E78.5 Hyperlipidemia, unspecified; G89.4 Chronic pain syndrome; Z95.5 Presence of coronary angioplasty implant and graft; K21.9 Gastro-esophageal reflux disease without esophagitis; M79.7 Fibromyalgia; R91.1 Solitary pulmonary nodule; K44.9 Diaphragmatic hernia without obstruction or gangrene; K29.70 Gastritis, unspecified, without bleeding; I12.9 Hypertensive chronic kidney disease with stage 1 through stage 4 chronic kidney disease, or unspecified chronic kidney disease; E16.2 Hypoglycemia, unspecified; Z85.3 Personal history of malignant neoplasm of breast; Z79.02 Long term (current) use of antithrombotics/antiplatelets
CPT/HCPCS: 36430; 71250; 74176; 80048; 80053; 81001; 82272; 82607; 82728; 82746; 82747; 83010; 83540; 83550; 83690; 84466; 85007; 85025; 85027; 85610; 85730; 86850; 86900; 86901; 86920; 88305; 93005; 96360; C9113; J1642; J1756; J2405; J2997; J7030; J7050; J7121; P9016; Q9963

== ENCOUNTER 2017-02-12 08:11 | Day surgery (SDC) | payer MEDICARE, BC ==
[2017-02-12] VITALS (7 sets, daily range): BP systolic 103–119; BP diastolic 47–67; PULSE 76–85; RESP 18; TEMP 97.4–99.9; O2SAT 88–95
[~2017-02-12] VITALS: Ht 160 cm; Wt 52.3 kg
[~2017-02-12 08:11] MED LIST changes: +ALLO100T PO; -ANAS1TAB PO; +DILA4TAB2 PO; -FE FCAP PO; -FENT75DI T-DERMAL; +FENT75T T-DERMAL; +LACTTAB13 PO; +MECL-62 PO; +NIFE60TA8 PO; +NITR1SUB3 SL; +NUCY100T4 PO; +OXYC-395 PO; -OXYC-396 PO; +PANT40TA3 PO; -PLAV75TA29 PO; +SIMV10TA PO; +TORS20TA PO
[2017-02-12] MEDS ORDERED: CITRSOL4 PO (08:53)
[2017-02-12] MEDS ORDERED: SODIUM CHLOR 0.9% 1000 ML IV SCH (09:00)
[2017-02-12] MEDS ORDERED: LIDOCAINE 1%/EPINEPHrine 1:100,000 SOLN 20 ML VIAL ONE (09:09)
[2017-02-12] MEDS ORDERED: fentaNYL CITRATE 250 MCG/5 ML AMP ONE (09:52)
[2017-02-12] MEDS ORDERED: MIDAZOLAM HCL 5 MG/5 ML VIAL ONE (09:52)
[2017-02-12] MEDS ORDERED: oxyCODONE/ACETAMINOPHEN 5 MG/325 MG TAB PO PRN (12:15)
--- NOTE | 2017-02-13 17:58 | RADRPT ---
EXAM DATE/TIME: 02/12/2017 09:52 [facility] COMPARISON: No previous studies available for comparison. INDICATIONS : Left iliac bone lesion. SEDATION TIME: 30 minutes BIOPSY SITE: Left Iliac wing MEDICATION(S): 1.) 1 mg midazolam (Versed) IV 2.) 50 mcg fentanyl (Sublimaze) IV DEVICE(S): 1.) 11 gauge Bone biopsy needle MEDICAL HISTORY : Carcinoma, breast. SURGICAL HISTORY : Mastectomy, right. ENCOUNTER: Initial ACUITY: 1 day PAIN SCORE: 0/10 LOCATION: Bilateral pelvis A total of three core specimen(s) were obtained and sent to the laboratory for pathologic evaluation. PROCEDURE: 1. CT guided bone deep biopsy. 2. Conscious sedation with continuous EKG and oximetry monitoring. 3. EKG and oximetry remained stable throughout the procedure. Prior to the procedure informed consent was obtained. Any appropriate prior imaging studies were rev iewed. Using automated exposure control and adjustment of the mA and/or kV according to patient size, radiat ion dose was kept as low as reasonably achievable to obtain optimal diagnostic quality images. The site was prepped in a sterile fashion. Full sterile technique was used, including cap, mask, faye rile gloves and gown and a large sterile sheet. Hand hygiene and 2% chlorhexidine and/or betadine/al cohol prep was utilized per protocol for cutaneous antisepsis. The skin and subcutaneous tissues wer e infiltrated with local anesthetic solution. With CT guidance the previously identified target was localized. Biopsy was performed using the presc ribed needle as above. Adequate hemostasis was obtained with compression at the puncture site.Follow -up CT scan reveals no hemorrhage. The patient tolerated the procedure well and there were no complications. The patient was returned to the Radiology Outpatient Unit in stable condition. CONCLUSION: Uncomplicated CT guided biopsy of several sclerotic lesion in the left iliac bone. Anthony Pinzon MD on February 13, 2017 at 17:55 Board Certified Radiologist. This report was verified electronically.
== END 2017-02-12 10:40 ==
LOC: HRAD 08:11 → HRIP 08:16 → HRAD 10:40
PROVIDERS: ATTEND Specialist
DX: C79.51 Secondary malignant neoplasm of bone (principal); C50.919 Malignant neoplasm of unspecified site of unspecified female breast; D63.1 Anemia in chronic kidney disease; N18.1 Chronic kidney disease, stage 1
CPT/HCPCS: 20225; 77012; 88305; 88311; 88341; 88342; 99152; 99153; C1830; J1642; J2250; J3010; J7030